=== PATIENT | female | born 2000 | race Caucasian/White ===

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

== ENCOUNTER 2022-06-10 10:42 | Emergency (ER) | payer OTHER, SELFPAY ==
[2022-06-10 10:43] VITALS: BP 134/83; PULSE 92; RESP 22; TEMP 36.9; O2SAT 100; BMI 17.2
--- NOTE | 2022-06-10 11:18 | PC.NURSE ---
speaking with Dr. Angeles at .
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
--- NOTE | 2022-06-10 11:55 | PC.NURSE ---
Pt rt hand dressed with bacitracin ointment and kerlex per MD request. Pt placed in sling to elevate extremity with ice pack on at this time.
[2022-06-10 12:08] VITALS: BP 119/73; PULSE 73; RESP 18; TEMP 36.9; O2SAT 98
== END 2022-06-10 12:08 | disposition home or self-care (01) ==
PROVIDERS: Emergency Provider Emergency Medicine; PCP Emergency Medicine
DX: T23.051A Burn of unspecified degree of right palm, initial encounter (principal); T31.0 Burns involving less than 10% of body surface; Y93.89 Activity, other specified
CPT/HCPCS: 96374; 96375; 96376; 99284; J2405

== ENCOUNTER 2023-04-04 06:44 | Emergency (ER) | payer OTHER, SELFPAY ==
[2023-04-04 06:46] VITALS: BP 117/78; PULSE 64; RESP 16; TEMP 36.8; O2SAT 98; BMI 18.3
[2023-04-04 06:52] VITALS: BP 117/78; PULSE 67; RESP 20; O2SAT 99
[2023-04-04 07:02] VITALS: BP 114/79; PULSE 59; RESP 20; O2SAT 100
--- NOTE | 2023-04-04 07:11 | HMH.EDDENT ---
Discharge Plan Disposition Patient Disposition: Home, Self-Care Prescriptions Prescriptions: New ketorolac 10 mg tablet 10 mg PO Q8H PRN (Reason: pain) 2 Days Qty: 10 0RF No Action oxycodone-acetaminophen 1 EACH tablet 1 each PO Q4-6H PRN (Reason: Crawford) 1 Days Qty: 12 0RF oxycodone-acetaminophen 1 EACH tablet 1 tab PO Q4-6H PRN (Reason: Crawford) Qty: 12 0RF Referrals Follow up/Referrals: Santos Huggins MD [Primary Care Provider] - See instructions Clinical Impressions Clinical Impression: Pain, dental Stand Alone Forms Stand Alone Forms: Work/School Release Instructions Patient Instructions: DI for Dental Pain Discharge ED Provider: Joseluis (ED)Santos Dental HPI General Chief complaint: Dental/Oral Stated complaint: Cracked tooth in pain Time Seen by Provider: 04/04/23 07:11 Mode of Arrival: Ambulatory Source of Information: Patient, Significant Other and Medical Record Limitations: No Limitations Description of Symptoms (Recalled from ER Triage Doc. by RN): Pt arrives to ED with c.o dental pain. Pt stated she has a cracked tooth that she is currently being treated for by her dentist. Pt stated she was seen March 28 and placed on an anbx, but states her pain is getting worse. Pt unsure of name of anbx. History of Present Illness HPI Narrative: pt with progressive dental pain and no fever - has seen dentist Complaint: tooth pain Onset (ago): day(s) Duration: intermittent Severity: moderate Relieving factors: NSAIDs Context: history of dental caries Treatment prior to arrival: oral analgesic and recent dentist visit Related Data Previous Rx's Medication Instructions Recorded oxycodone-acetaminophen 5 mg-325 1 each PO Q4-6H PRN Crawford 1 day 06/10/ mg tablet #12 tabs oxycodone-acetaminophen 5 mg-325 1 tab PO Q4-6H PRN Crawford #12 tabs 06/10/ mg tablet ketorolac 10 mg tablet 10 mg PO Q8H PRN pain 2 days #10 04/04/23 tabs Allergies Allergy/AdvReac Type Severity Reaction Status Date / Time No Known Allergies Allergy Verified 10/06/21 11:52 [facility] Disclaimer: The information contained in this section may have been updated after the patient was seen, as this information can be updated by other users. Social History Smoking Status: Current every day smoker alcohol intake: never substance use type: denies use current occupational status: employed Travel in the last 8 weeks: None ROS Obtained: Yes All systems reviewed & no additional complaints except as documented Physical Exam General General appearance: alert Head Head exam: normocephalic Eye Eye exam: Present PERRL and EOMI ENT ENT exam: Present mucous membranes moist Expanded ENT Exam Teeth exam: Present fractured tooth # Neck Neck exam: Present trachea midline Respiratory Respiratory exam: Absent respiratory distress Cardiovascular Cardiovascular exam: Present regular rate Abdominal Exam Abdominal exam: Present soft Extremities Exam Extremities exam: Present full ROM Neurological Exam Neurological exam: Present alert and CN II-XII intact Psychiatric Psychiatric exam: Present normal affect Skin Skin exam: Absent rash Medical Decision Making Medical Records Medical records reviewed: Yes I reviewed the patient's medical records. Shakeel Inquiry Pt receiving controlled substance: No Vital Signs: 04/04/23 06:46 Temperature 98.2 F Temperature Source Oral Pulse Rate [Right] 64 Respiratory Rate 16 Blood Pressure [Right Arm] 117/78 Blood Pressure Mean [Right Arm] 91 02 Sat by Pulse Oximetry 98 Oxygen Delivery Method Room Air Lab Data Lab results reviewed: Yes I reviewed the patient's lab results. Medical Decision Narrative: pt with dental pain and will see pcp for follow up Critical Care Time Critical Care Time Critical Care Time: No Attestation: On 04/04/23, the high probability of a clinically significant, sudden or life threatening deterioration of the
--- NOTE | 2023-04-04 07:52 | PC.NURSE ---
pt being D/C'D PT AMBULATED OUT
[2023-04-04 08:02] VITALS: BP 145/84; PULSE 71; RESP 18; TEMP 36.8; O2SAT 100
== END 2023-04-04 08:02 | disposition home or self-care (01) ==
PROVIDERS: Emergency Provider Emergency Medicine; PCP Emergency Medicine
DX: K08.89 Other specified disorders of teeth and supporting structures (principal); F17.200 Nicotine dependence, unspecified, uncomplicated
CPT/HCPCS: 96372; 99283; 99284

== ENCOUNTER 2023-05-22 21:42 | Emergency (ER) | payer OTHER, SELFPAY ==
[2023-05-22 21:43] VITALS: BP 146/85; PULSE 98; RESP 26; TEMP 36.9; O2SAT 99; BMI 17.2
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
[2023-05-22 22:16] LABS: Urine Pregnancy, HCG Qual. Negative (Negative)
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
[2023-05-23 00:56] VITALS: BP 137/84; PULSE 91; RESP 20; TEMP 36.9; O2SAT 99
== END 2023-05-23 00:58 | disposition home or self-care (01) ==
PROVIDERS: Emergency Provider Emergency Medicine
DX: S06.0X0A Concussion without loss of consciousness, initial encounter (principal); S09.93XA Unspecified injury of face, initial encounter; S01.81XA Laceration without foreign body of other part of head, initial encounter; Y00.XXXA Assault by blunt object, initial encounter
CPT/HCPCS: 12011; 70450; 70486; 72125; 81025; 90714; 96372; 99284

== ENCOUNTER 2023-06-01 12:54 | Emergency (ER) | payer OTHER, SELFPAY ==
[2023-06-01 13:00] VITALS: BP 116/81; PULSE 86; RESP 18; TEMP 36.6; O2SAT 99; BMI 18.0
[2023-06-01 13:10] VITALS: BP 116/81; PULSE 86; RESP 18; TEMP 36.6; O2SAT 99
== END 2023-06-01 13:13 | disposition home or self-care (01) ==
LOC: UTC 12:56
PROVIDERS: Emergency Provider Nurse Practitioner Family; PCP Emergency Medicine
DX: Z48.02 Encounter for removal of sutures; S01.81XA Laceration without foreign body of other part of head, initial encounter

== ENCOUNTER 2025-02-04 22:37 | Emergency (ER) | payer SELFPAY ==
[2025-02-04 22:54] VITALS: BP 137/80; PULSE 79; RESP 16; TEMP 36.6; O2SAT 98; BMI 19.7
--- NOTE | 2025-02-04 23:06 | HMH.EDGENADL ---
Discharge Plan Disposition Patient Disposition: Home, Self-Care Condition: Good Prescriptions Prescriptions: No Action No Known Home Medications Referrals Follow up/Referrals: Roel Cano DO [Primary Care Provider] - See instructions Activity Restrictions/Add. Instructions Additional Instructions/Restrictions: Please follow-up with your primary care provider. Please return to the emergency department if you develop any new or worsening symptoms or become concerned for your health. Clinical Impressions Clinical Impression: Restless leg syndrome, Mucocele of mouth Instructions Patient Instructions: DI for Restless Legs Syndrome Print Language Print Language: Greenlandic Discharge ED Provider: Kade Benz General Adult HPI General Chief complaint: Anxiety Stated complaint: shaky, weak, bump on gums Time Seen by Provider: 02/04/25 23:00 Mode of Arrival: Ambulatory Source of Information: Patient Description of Symptoms (Recalled from ER Triage Doc. by RN): Patient reports that she is shaking at night. This has happened for the last three nights, at bedtime. She also has a bump on her gums that she is anxious about. She states she has an appointment at the dentist on the . History of Present Illness HPI narrative: 24-year-old female with reported history of anxiety presents for multiple complaints. Her primary complaint is that she has been having shaking in her legs when she lays down to go to sleep and it does not stop until she falls asleep. She describes a uncontrollable urge to shake. Nothing like this before. No recent surgery or illness. No changes in medications diet activity etc. She also has a small bump on her left maxillary gums above the incisors. Reports that it occasionally feels with clear fluid but is not painful. Just wants to get it checked out. Related Data Home Medications ?Medication ?Instructions ?Recorded ?Confirmed No Known Home Medications 05/27/23 05/27/23 Allergies Allergy/AdvReac Type Severity Reaction Status Date / Time No Known Allergies Allergy Verified 05/27/23 13:47 [facility] Disclaimer: The information contained in this section may have been updated after the patient was seen, as this information can be updated by other users. Social History Smoking Status: Current every day smoker alcohol intake: never substance use type: denies use current occupational status: employed Travel in the last 8 weeks: None Have you lived/traveled outside [place] in past 30 days?: No Contact w/someone who lives/traveled outside [place] past 30 days?: No Exposure to someone with infectious disease in past 14 days?: No Do you have a fever (greater than 100.4 F or 38 C)?: No Have you tested positive for COVID-19: No Exposed to someone with COVID-19 in past 14 days?: No Do you have a sore throat?: No Do you have a cough?: No Do you have any weakness?: Yes Do you have any diarrhea?: No Are you experiencing any unusual bleeding?: No Do you have any muscle aches/pain?: No Do you have any abdominal pain?: No Are you experiencing loss of taste or smell?: No Other Medical History Have you received the Flu Vaccine for this season: Yes Have you received the Pneumonia Vaccine: No ROS Obtained: Yes All systems reviewed & no additional complaints except as documented Physical Exam General General appearance: alert and in no apparent distress Head Head exam: atraumatic and normocephalic Eye Eye exam: Present normal appearance, PERRL and EOMI ENT ENT exam: Present normal oropharynx, normal external ear exam and other (Small benign-appearing mucocele without erythema) Neck Neck exam: Present normal inspection and full ROM Chest Chest inspection: Present normal inspection and symmetric chest wall rise; Absent tenderness Respiratory Respiratory exam: Present normal lung sounds bilaterally; Absent respiratory distress Cardiovascular Cardiovascular exam: Present regular rate and normal rhythm Abdominal Exam Abdominal exam: Present soft; Absent distention, tenderness or guarding Extremities Exam Extremities exam: Present normal inspection; Absent edema or joint swelling Back Exam Back exam: Present normal inspection; Absent tenderness Neurological Exam Neurological exam: Present alert and oriented X3; Absent motor sensory deficit Psychiatric Psychiatric exam: Present normal affect and normal mood Skin Skin exam: Present warm, dry and normal color Lymphatic Lymphatic Findings: no adenopathy Medical Decision Making Medical Records Medical records reviewed: Yes I reviewed the patient's medical records. Screening: Per USPSTF and CDC recommendations, given the prevalence of disease in our region, it is our hospital?s policy to screen for HIV and viral Hepatitis for all patients aged 18 and over and those with ongoing risk factors. Shakeel Inquiry Pt receiving controlled substance: No Shakeel was queried for this patient: No Vital Signs: 02/04/25 22:54 02/04/25 23:23 Temperature 97.9 F 97.9 F Temperature Source Oral Oral Pulse Rate 74 Pulse Rate [Right Radial] 79 Respiratory Rate 16 16 Blood Pressure 118/74 Blood Pressure [Right Arm] 137/80 Blood Pressure Mean [Right Arm] 99 Blood Pressure Source Automatic Cuff Blood Pressure Source [Right Arm] Automatic Cuff Blood Pressure Position Supine Blood Pressure Position [Right Arm] Supine 02 Sat by Pulse Oximetry 98 Oxygen Delivery Method Room Air Room Air Lab Data Lab results reviewed: Yes I reviewed the patient's lab results. Medical Decision Narrative: 44-year-old female without significant past medical history presents for shaking in her legs at night for the last few days and chronic bump in her mouth history was obtained via interactive discussion with patient. On arrival, patient is [afebrile, hemodynamically stable, satting appropriately, alert, oriented x4, GCS 15], moving all extremities spontaneously. Full physical exam performed and significant for benign-appearing oral mucocele, no other significant physical exam normalities Differential includes but is not limited to restless leg syndrome, anxiety, mucocele, abscess. Presentation seems most consistent with restless leg syndrome and intraoral mucocele. No other significant concerns on history or exam at this time. Patient discharged in stable condition return precautions. Procedures Risk/Benefits of Procedure(s) Were Explained: Yes Critical Care Critical Care Time Critical Care Time: No
[2025-02-04 23:23] VITALS: BP 118/74; PULSE 74; RESP 16; TEMP 36.6; O2SAT 98
== END 2025-02-04 23:24 | disposition home or self-care (01) ==
PROVIDERS: Emergency Provider Emergency Medicine; PCP Internal Medicine
DX: G25.81 Restless legs syndrome (principal); K13.79 Other lesions of oral mucosa; Z87.891 Personal history of nicotine dependence
CPT/HCPCS: 99281

== ENCOUNTER 2025-03-09 15:49 | Outpatient (CLI) | payer OTHER, SELFPAY ==
--- NOTE | 2025-03-09 16:08 | XR_ITS ---
FINAL REPORT CLINICAL HISTORY: decreased breath sounds, right FINDINGS: 2 views of the chest were obtained . The heart is normal in size. The mediastinum is within normal limits. There are right middle and lower lobe opacities and moderate right pleural effusion, favor pneumonia. There is no pneumothorax. Osseous structures are unremarkable. IMPRESSION: Right middle lobe and lower lobe opacities with a moderate right pleural effusion, favor pneumonia. Recommend follow-up to resolution. Reviewed, Interpreted and Dictated by Luz Hammonds MD Transcribed by Susanna Puente Authenticated and [facility]
[2025-03-09 16:14] LABS: Basophils # 0.1 K/mm3 (0-0.2); Basophils % 0.7 % (0.1-2.0); Eosinophils # 0.1 K/mm3 (0.0-0.4); Eosinophils % 1.1 % (0.1-12.0); Hemoglobin 9.3 g/dL (12.2-16.2); Lymphocytes # 2.2 K/mm3 (0.7-4.5); Lymphocytes % 18.1 % (10-50); Mean Corpuscular HGB Conc 33.2 g/dL (31.8-35.4); Mean Corpuscular Hemoglobin 30.5 pg (27.0-31.2); Mean Corpuscular Volume 91.8 fl (81-99); Mean Platelet Volume 9.1 fl (7.4-10.4); Neutrophils # 8.7 K/mm3 (1.8-7.8); Neutrophils % 71.4 % (37.0-80.0); Nucleated Red Blood Cells # 0 10^3/uL; Nucleated Red Blood Cells % 0 %; Platelet Count 710 K/mm3 (142-424); Red Blood Count 3.05 M/mm3 (4.20-5.40); Red Cell Distribution Width 11.9 % (11.5-17.5); Red Cell Distribution Width-SD 40.3 fL; White Blood Count 12.2 K/mm3 (4.8-10.8)
[2025-03-09 16:53] LABS: Alanine Aminotransferase 40 U/L (12-78); Albumin Level 3.2 g/dl (3.5-5.0); Albumin/Globulin Ratio 0.9 (1.1-1.8); Alkaline Phosphatase 102 U/L (38-126); Anion Gap 12.3 mEq/L (5-15); Aspartate Amino Transferase 28 U/L (14-36); Bilirubin,Total 0.5 mg/dl (0.2-1.3); Blood Urea Nitrogen 8 mg/dl (7-17); Calcium 8.6 mg/dl (8.4-10.2); Carbon Dioxide 26 mmol/L (22.0-30.0); Chloride 100 mmol/L (98-107); Estimated Glomerular Filt Rate 198 ml/min (>60); GFR (African American) 239 ML/MIN (>60); Globulin 3.7 g/dL (1.3-3.2); Glucose 108 mg/dl (74-100); Potassium 4.3 mmoL/L (3.5-5.1); Sodium 134 mmol/L (136-145); Total Protein,Serum 6.9 g/dl (6.3-8.2)
[2025-03-09 17:23] LABS: Thyroid Stimulating Hormone 1.11 uIU/mL (0.465-4.68)
== END 2025-03-09 23:59 | disposition home or self-care (01) ==
LOC: LAB 15:50
PROVIDERS: PCP Nurse Practitioner Family; Visit Provider Nurse Practitioner Family
DX: J98.11 Atelectasis (principal); K13.79 Other lesions of oral mucosa; Z87.891 Personal history of nicotine dependence
CPT/HCPCS: 36415; 71046; 80053; 84443; 85025

== ENCOUNTER 2025-03-23 15:08 | Outpatient (CLI) | payer OTHER, SELFPAY ==
[2025-03-23 14:49] LABS: Basophils # 0.1 K/mm3 (0-0.2); Basophils % 1.8 % (0.1-2.0); Eosinophils # 0.4 Kmm3 (0.0-0.4); Eosinophils % 5.2 % (0.1-12.0); Hematocrit 40.8 % (37.0-47.0); Hemoglobin 12.8 g/dL (12.2-16.2); Lymphocytes # 2.2 K/mm3 (0.7-4.5); Lymphocytes % 30.6 % (10-50); Mean Corpuscular HGB Conc 31.4 g/dL (31.8-35.4); Mean Corpuscular Hemoglobin 29.8 pg (27.0-31.2); Mean Corpuscular Volume 94.9 fl (81-99); Mean Platelet Volume 10.1 fl (7.4-10.4); Monocytes # 0.5 K/mm3 (0.1-1.0); Monocytes % 7.1 % (1.7-9.3); Neutrophils # 3.9 K/mm3 (1.8-7.8); Nucleated Red Blood Cells # 0 10^3/uL; Nucleated Red Blood Cells % 0 %; Platelet Count 506 K/mm3 (142-424); Red Cell Distribution Width 14.6 % (11.5-17.5); Red Cell Distribution Width-SD 50.5 fL; White Blood Count 7.2 K/mm3 (4.8-10.8)
[2025-03-23 15:16] LABS: Albumin Level 4.1 g/dl (3.5-5.0); Chloride 104 mmol/L (98-107); Sodium 140 mmol/L (136-145)
[2025-03-23 15:17] LABS: Potassium 5.1 mmoL/L (3.5-5.1)
[2025-03-23 15:19] LABS: Anion Gap 15.1 mEq/L (5-15); Blood Urea Nitrogen 9 mg/dl (7-17); Carbon Dioxide 26 mmol/L (22.0-30.0); Estimated Glomerular Filt Rate 153 ml/min (>60); GFR (African American) 185 ML/MIN (>60)
[2025-03-23 15:20] LABS: Alanine Aminotransferase 44 U/L (12-78); Albumin/Globulin Ratio 1.2 (1.1-1.8); Alkaline Phosphatase 93 U/L (38-126); Aspartate Amino Transferase 32 U/L (14-36); Bilirubin,Total 0.4 mg/dl (0.2-1.3); Calcium 9.9 mg/dl (8.4-10.2); Globulin 3.4 g/dL (1.3-3.2); Glucose 81 mg/dl (74-100); Total Protein,Serum 7.5 g/dl (6.3-8.2)
[2025-03-23 15:58] LABS: Ferritin 115 ng/ml (6.24-137)
[2025-03-23 16:05] LABS: HIV Combo NEGATIVE (Negative)
[2025-03-23 16:11] LABS: Hepatitis C Ab Qual. W/ RFX NEGATIVE (Negative)
[2025-03-23 17:11] LABS: Thyroid Stimulating Hormone 1.68 uIU/mL (0.465-4.68)
== END 2025-03-23 23:59 | disposition home or self-care (01) ==
LOC: LAB.DROPOF 15:08
PROVIDERS: PCP Nurse Practitioner Family; Visit Provider Nurse Practitioner Family
DX: D64.9 Anemia, unspecified (principal); R00.0 Tachycardia, unspecified; Z11.59 Encounter for screening for other viral diseases
CPT/HCPCS: 80053; 82728; 84443; 85025; 86803; 87389

== ENCOUNTER 2025-04-27 15:35 | Outpatient (CLI) | payer OTHER, SELFPAY ==
[2025-04-27 16:57] LABS: Anti-Centromere B Antibodies ND; Anti-DNA (DS) Ab Qn ND; Anti-Jo-1 ND; Antichromatin Antibodies ND; Antiscleroderma-70 Antibodies ND; RNP Antibodies ND; Sjogren's Anti-SS-A ND; Sjogren's Anti-SS-B ND
[2025-04-27 17:07] LABS: Basophils # 0.1 K/mm3 (0-0.2); Basophils % 1.3 % (0.1-2.0); Eosinophils # 0.1 Kmm3 (0.0-0.4); Eosinophils % 1.4 % (0.1-12.0); Hematocrit 41.2 % (37.0-47.0); Hemoglobin 13.3 g/dL (12.2-16.2); Immature Granulocytes # 0.01 10^3uL; Immature Granulocytes % 0.1 %; Lymphocytes # 2.3 K/mm3 (0.7-4.5); Lymphocytes % 28.8 % (10-50); Mean Corpuscular HGB Conc 32.3 g/dL (31.8-35.4); Mean Corpuscular Hemoglobin 29.1 pg (27.0-31.2); Mean Corpuscular Volume 90.2 fl (81-99); Mean Platelet Volume 10.4 fl (7.4-10.4); Monocytes # 0.5 K/mm3 (0.1-1.0); Monocytes % 6.5 % (1.7-9.3); Neutrophils # 4.8 K/mm3 (1.8-7.8); Neutrophils % 61.9 % (37.0-80.0); Nucleated Red Blood Cells # 0 10^3/uL; Nucleated Red Blood Cells % 0 %; Platelet Count 307 K/mm3 (142-424); Red Blood Count 4.57 M/mm3 (4.20-5.40); Red Cell Distribution Width 13.6 % (11.5-17.5); Red Cell Distribution Width-SD 44.7 fL; White Blood Count 7.8 K/mm3 (4.8-10.8)
[2025-04-27 17:46] LABS: Albumin Level 4.6 g/dl (3.5-5.0); Chloride 107 mmol/L (98-107)
[2025-04-27 17:47] LABS: Potassium 4.5 mmoL/L (3.5-5.1); Sodium 140 mmol/L (136-145)
[2025-04-27 17:49] LABS: Alanine Aminotransferase 19 U/L (12-78); Anion Gap 12.5 mEq/L (5-15); Aspartate Amino Transferase 26 U/L (14-36); Blood Urea Nitrogen 6 mg/dl (7-17); Carbon Dioxide 25 mmol/L (22.0-30.0); Estimated Glomerular Filt Rate 124 ml/min (>60); GFR (African American) 150 ML/MIN (>60)
[2025-04-27 17:50] LABS: Albumin/Globulin Ratio 1.6 (1.1-1.8); Alkaline Phosphatase 60 U/L (38-126); Bilirubin,Total 0.8 mg/dl (0.2-1.3); Calcium 9.6 mg/dl (8.4-10.2); Globulin 2.9 g/dL (1.3-3.2); Glucose 90 mg/dl (74-100); Total Protein,Serum 7.5 g/dl (6.3-8.2)
[2025-04-27 18:21] LABS: Thyroid Stimulating Hormone 1.08 uIU/mL (0.465-4.68)
[2025-04-27 18:25] LABS: Ferritin 25.7 ng/ml (6.24-137)
[2025-04-29 11:12] LABS: Antinuclear Antibodies (ANA) Negative (Negative)
== END 2025-04-27 23:59 | disposition home or self-care (01) ==
LOC: LAB.DROPOF 04-28 12:37
PROVIDERS: PCP Nurse Practitioner Family; Visit Provider Nurse Practitioner Family
DX: E87.6 Hypokalemia (principal); H57.9 Unspecified disorder of eye and adnexa; D64.9 Anemia, unspecified; J93.83 Other pneumothorax; R00.0 Tachycardia, unspecified
CPT/HCPCS: 80053; 82728; 84443; 85025; 86038

== ENCOUNTER 2025-05-05 15:34 | Outpatient (CLI) | payer OTHER, SELFPAY ==
--- OUTSIDE RECORDS SUMMARY | 2025-03-10 11:46 | XMS_ITS | Encounter Summary ---
Author Organization Healthcare Address [address] [place] [address] Care Team Providers Care Advertising Intern Name Role Phone Pcp, No Primary Care Provider Unavailabl e Reason for Visit * Reason Comments Chest Pain * Auth/Cert (Routine) Specialty Diagnoses / Procedures Referred By Gisele t Referred To Contact Diagnoses Empyema lung (CMS/HCC) Pleural effusion Kaylan Cao MD [address] [address] Phone: tel: fax: PAV A Inpatient [address] [place] [address] Phone: tel: Referral ID Status Reason Start Date Expiration Date Visits Re quested Visits Authorized [id number] 1 1 Encounter Details Date Type Department Care Team ([facility] Contact Info) Description 03/10/2025 11:46 AM EDT - 03/15/2025 4:52 PM EDT Hospital Encounter [facility] [address] [place] [address] Radames Jane MD [address] [place] [address] Fatmata De Jesus MD [address] [place] [address] Kaylan Cao MD [address] [address] Pleural effusion (Primary Dx); Empyema [...] any time in the past 12 m [facility], were you homeless or living in a nursing home (including now)? No 03/11/2025 Utilities Answer Date [...] Clinic discharge # - For urgent questions/concerns: [facility] hotline: , option 4 - ask for the thoracic surgeon varying exceptionalities teacher. documented in this encounter Medications at Time [...] MD PCP name and Address: Pcp, Venessa [address] [place], [place] [id number] Referring provider name and address: No referring [...] Your Medications These medications were sent to [facility] - [place], [place] - 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 Outpatient Follow-Up No future appointments. Test Results [...] Note Sarah Crane 25 y.o. 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 [facility] [place] Department of Surgery Section of Thoracic Surgery Progress Note 03/14/25 Sarah Crane History of Present Illness Sarah Crane is a 25 y.o. female that presented to [facility] on 03/10/2025 after CXR demonstrated moderate R pleural effusion at appointment with PCP on 03/09. 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 [facility] [place] Department of Surgery Section of Thoracic Surgery Progress Note 03/13/25 Sarah Crane History of Present Illness Sarah Crane is a 25 y.o. female that presented to [facility] on 03/10/2025 after CXR demonstrated moderate R pleural effusion at appointment with PCP on 03/09. 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 female CSN: [id number] Room/Bed 642/642A Nutrition evaluation type: assessment Reason [...] Supplemental oxygen O2 Delivery Method: Nasal cannula [place] Coma Scale Score: 15 [place] Scale Score: [...] BMI (Calculated): 17.66 Weight Evaluation: Underweight (BMI<18.5) Bowler Body Weight (kg): 54.5 Percent Bowler Body Weight: 86 Wt Readings from Last [...] from the original note were not included. [facility] [place] Department of Surgery Section of Thoracic Surgery Progress Note 03/12/25 Sarah Crane History of Present Illness Sarah Crane is a 25 y.o. female that presented to [facility] on 03/10/2025 after CXR demonstrated moderate R pleural effusion at appointment with PCP on 03/09. 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 I have notified senior resident/attending varying exceptionalities teacher with any issues or concerns. Juvencio Tellez [...] PM EDT Operative Note Date: 03/11/25 Location: [place] [facility] Name: Sarah Crane, : 2000, Diagnoses: Pre-op Diagnosis Pleural effusion Post-op Diagnosis Pleural effusion Procedure(s): Bronchoscopy, right VATS decortication Attending Surgeon(s): * Kaylan Cao - Primary X Ray Developer(s): * Bre Matson MD - Resident - [...] several liters of warm saline. A 24 Turkmen chest tube was placed through a separate [...] Note Sarah Crane 25 y.o. female CSN: [id number] Admission: 03/10/2025 11:46 AM Primary Problem: Pleural effusion Hot Dimpling Machine Operator reviewed chart and spoke with the patient at bedside to complete this Initial Case Management Assessment. PCP: Eliza Moser APRN Emergency Contact: Extended Emergency Contact Information Primary Emergency Contact: RoyceLydia boone Mobile Relation: Mother Insurance: Primary Visit Coverage Payer Plan Sponsor Code Group Number Group Name [facility] [id number] Primary Visit Coverage Subscriber Subscriber ID Subscriber Name Subscriber N Subscriber Address [id number] SARAH CRANE [id number] [address] [place] [address] Patient information: Primary Caregiver: Self Support System: Immediate family Daily Living Activities: Functional Status: Independent Living Arrangements: Children Type of Residence: Private residence, Single Level [address] [address] Smoker in the Home?: N/A Current DME: [...] DME Provider: n/a Living Will/Advance Directive/Power of Motion Designer /Guardian: Unable to assess: Yes Have you [...] DME/HH/HD/O2. PCP is Eliza Moser. Patient has [employer] insurance and uses [facility]. Family will assist and transport at [...] from the original note were not included. [facility] Department of Surgery Section of Thoracic Surgery [...] effusion concerning for empyema. Dispo: Admit to [facility] Consent for R VATS washout/decortication tomorrow with Dr. Cao History of Present Illness: Chief Complaint: Persistent R chest pain with associated pleural effusion. Sarah Crane is a 25 y.o. female w/no significant past medical history presented to the [facility] on 03/10/2025 after CXR demonstrated moderate [...] smoking. Immunizations: Immunization History Administered Date(s) Administered [facility] COVID-19 Vaccine (Purple Cap) 12+ 12/02/2021 I [...] Chief Complaint Patient presents with Chest Pain [facility] Note Sarah Crane is a 25 y.o. female who presents to ED with chest/lung pain. Pt notes she has a spontaneous collapse of R lung 3 weeks ago. Pt states that she had a follow up yesterday in [place]. Today she was told there was fluid and poss PNA and was sent to ED. Pt had a chest tube for 3-4 days for previous lung collapse. Patient denies fever, chills, nausea, vomiting, and diarrhea. 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 I personally performed my own history, ROS, and physical. I agree with the above [facility] documentation with the following additions/exceptions: The [...] COMPARISON: Same date at 0418 hours FINDINGS: Bgywv-kq-wubrzple left-sided pneumothorax without change. Small right-sided pleural effusion, stable. Mild right infrahilar opacities are similar to the prior. No left-sided pleural effusion or pneumothorax. No left-sided airspace disease. Procedure Note Ashleigh Samayoa MD - 03/15/2025 CLINICAL INDICATION: S/p chest tube removal TECHNIQUE: XR CHEST 1 VIEW COMPARISON: Same date at 0418 hours FINDINGS: Vvgyq-[id number] left-sided pneumothorax without change. Smallright-sided pleural effusion, [...] - 99 mg/dL 03/14/2025 4:24 AM EDT [facility] BUN, Plasma 8 7 - 21 mg/dL 03/14/2025 4:24 AM EDT [facility] Creatinine, Plasma 0.49(L) 0.60 - 1.10 mg/dL 03/14/2025 4:24 AM EDT [facility] BUN/Creatinine Ratio 16 03/14/2025 4:24 AM EDT [facility] Sodium, Plasma 137 136 - 145 mmol/L 03/14/2025 4:24 AM EDT [facility] Potassium, Plasma 3.6 3.6 - 4.9 mmol/L 03/14/2025 4:24 AM EDT [facility] Chloride, Plasma 102 97 - 107 mmol/L 03/14/2025 4:24 AM EDT [facility] CO2, Plasma 28 22 - 29 mmol/L 03/14/2025 4:24 AM EDT [facility] Anion Gap 7 6 - 16 mmol/L 03/14/2025 4:24 AM EDT [facility] Total Calcium, Plasma 8.9 8.9 - 10.2 mg/dL 03/14/2025 4:24 AM EDT [facility] Phosphorus, Plasma 4.7(H) 2.5 - 4.5 mg/dL 03/14/2025 4:24 AM EDT [facility] Albumin, Plasma 3.1(L) 3.5 - 5.2 g/dL 03/14/2025 4:24 AM EDT [facility] eGFRcr 136.0 mL/min/1.7 3m*2 03/14/2025 4:24 AM EDT [facility] Comment:Reported eGFRcr in m L/min/1.73m2 is based the CKD-EPI 2020 equation that does not use a race coefficient. Blood Venous blood specimen / Unknown Venipuncture / Unknown 03/14/2025 3:26 AM EDT 03/14/2025 3:48 AM EDT us Kaylan Cao MD LAB BLOOD ORDERABLES Final R esult Performing Organization Address City/[facility]/ZIP Co de Phone Number [facility] [address] [place] [address] * Magnesium (03/14/2025 3:26 AM EDT) Magnesium, Plasma 1.9 1.9 - 2.4 mg/dL 03/14/2025 4:24 AM EDT [facility] Blood Venous blood specimen / Unknown Venipuncture / Unknown 03/14/2025 3:26 AM EDT 03/14/2025 3:48 AM EDT Kaylan Cao MD LAB BLOOD ORDERABLES Final R esult [facility] [address] [place] [address] * (ABNORMAL) CBC W/O Differential (03/14/2025 3:26 AM EDT) WBC Count 10.78(H) 3.70 - 10.30 10*3/uL LAB HEMATOLOGY METHOD 03/14/2025 3:55 AM EDT [facility] RBC Count 3.49(L) 3.90 - 5.20 10*6/uL LAB HEMATOLOGY METHOD 03/14/2025 3:55 AM EDT [facility] HGB 10.2(L) 11.2 - 15.7 g/dL LAB HEMATOLOGY METHOD 03/14/2025 3:55 AM EDT [facility] HCT 32.9(L) 34.0 - 45.0 % LAB HEMATOLOGY METHOD 03/14/2025 3:55 AM EDT [facility] Platelet Count 668(H) 155 - 369 10*3/uL LAB HEMATOLOGY METHOD 03/14/2025 3:55 AM EDT [facility] MCV 94 79 - 98 fL LAB HEMATOLOGY METHOD 03/14/2025 3:55 AM EDT [facility] MCH 29.2 26.0 - 32.0 pg LAB HEMATOLOGY METHOD 03/14/2025 3:55 AM EDT [facility] MCHC 31.0 30.7 - 35.5 g/dL LAB HEMATOLOGY METHOD 03/14/2025 3:55 AM EDT [facility] RDW 12.5 11.5 - 14.5 % LAB HEMATOLOGY METHOD 03/14/2025 3:55 AM EDT [facility] MPV 8.8 8.8 - 12.5 fL LAB HEMATOLOGY METHOD 03/14/2025 3:55 AM EDT [facility] nRBC 0.0 <=0.0 per 100 WBCs LAB HEMATOLOGY METHOD 03/14/2025 3:55 AM EDT [facility] Blood Venous blood specimen / Unknown Venipuncture / Unknown 03/14/2025 3:26 AM EDT 03/14/2025 3:48 AM EDT us Kaylan Cao MD LAB BLOOD ORDERABLES Final R esult [facility] [address] [place] [address] * XR Chest 1 View (03/13/2025 4:23 [...] - 99 mg/dL 03/13/2025 4:23 AM EDT [facility] BUN, Plasma 7 7 - 21 mg/dL 03/13/2025 4:23 AM EDT [facility] Creatinine, Plasma 0.53(L) 0.60 - 1.10 mg/dL 03/13/2025 4:23 AM EDT [facility] BUN/Creatinine Ratio 13 03/13/2025 4:23 AM EDT [facility] Sodium, Plasma 139 136 - 145 mmol/L 03/13/2025 4:23 AM EDT [facility] Potassium, Plasma 3.9 3.6 - 4.9 mmol/L 03/13/2025 4:23 AM EDT [facility] Chloride, Plasma 102 97 - 107 mmol/L 03/13/2025 4:23 AM EDT [facility] CO2, Plasma 29 22 - 29 mmol/L 03/13/2025 4:23 AM EDT [facility] Anion Gap 8 6 - 16 mmol/L 03/13/2025 4:23 AM EDT [facility] Total Calcium, Plasma 8.9 8.9 - 10.2 mg/dL 03/13/2025 4:23 AM EDT [facility] Phosphorus, Plasma 4.1 2.5 - 4.5 mg/dL 03/13/2025 4:23 AM EDT [facility] Albumin, Plasma 2.9(L) 3.5 - 5.2 g/dL 03/13/2025 4:23 AM EDT [facility] eGFRcr 133.5 mL/min/1.7 3m*2 03/13/2025 4:23 AM EDT [facility] Comment:Reported eGFRcr in m L/min/1.73m2 is based the CKD-EPI 2020 equation that does not use a race coefficient. Blood Venous blood specimen / Unknown Venipuncture / Unknown 03/13/2025 3:33 AM EDT 03/13/2025 3:50 AM EDT us Kaylan Cao MD LAB BLOOD ORDERABLES Final R esult [facility] [address] [place] [address] * Magnesium (03/13/2025 3:33 AM EDT) Magnesium, Plasma 2.1 1.9 - 2.4 mg/dL 03/13/2025 4:23 AM EDT [facility] Blood Venous blood specimen / Unknown Venipuncture / Unknown 03/13/2025 3:33 AM EDT 03/13/2025 3:50 AM EDT us Kaylan Cao MD LAB BLOOD ORDERABLES Final R esult [facility] [address] [place] [address] * (ABNORMAL) CBC W/O Differential (03/13/2025 3:33 AM EDT) WBC Count 14.97(H) 3.70 - 10.30 10*3/uL LAB HEMATOLOGY METHOD 03/13/2025 4:07 AM EDT [facility] RBC Count 3.02(L) 3.90 - 5.20 10*6/uL LAB HEMATOLOGY METHOD 03/13/2025 4:07 AM EDT [facility] HGB 9.1(L) 11.2 - 15.7 g/dL LAB HEMATOLOGY METHOD 03/13/2025 4:07 AM EDT [facility] HCT 28.1(L) 34.0 - 45.0 % LAB HEMATOLOGY METHOD 03/13/2025 4:07 AM EDT [facility] Platelet Count 638(H) 155 - 369 10*3/uL LAB HEMATOLOGY METHOD 03/13/2025 4:07 AM EDT [facility] MCV 93 79 - 98 fL LAB HEMATOLOGY METHOD 03/13/2025 4:07 AM EDT [facility] MCH 30.1 26.0 - 32.0 pg LAB HEMATOLOGY METHOD 03/13/2025 4:07 AM EDT [facility] MCHC 32.4 30.7 - 35.5 g/dL LAB HEMATOLOGY METHOD 03/13/2025 4:07 AM EDT [facility] RDW 12.0 11.5 - 14.5 % LAB HEMATOLOGY METHOD 03/13/2025 4:07 AM EDT [facility] MPV 9.1 8.8 - 12.5 fL LAB HEMATOLOGY METHOD 03/13/2025 4:07 AM EDT [facility] nRBC 0.0 <=0.0 per 100 WBCs LAB HEMATOLOGY METHOD 03/13/2025 4:07 AM EDT [facility] Blood Venous blood specimen / Unknown Venipuncture / Unknown 03/13/2025 3:33 AM EDT 03/13/2025 3:53 AM EDT us Kaylan Cao MD LAB BLOOD ORDERABLES Final R esult [facility] [address] [place] [address] * XR Chest 1 View (03/13/2025 1:33 [...] - 99 mg/dL 03/12/2025 4:36 AM EDT [facility] BUN, Plasma 8 7 - 21 mg/dL 03/12/2025 4:36 AM EDT [facility] Creatinine, Plasma 0.48(L) 0.60 - 1.10 mg/dL 03/12/2025 4:36 AM EDT [facility] BUN/Creatinine Ratio 17 03/12/2025 4:36 AM EDT [facility] Sodium, Plasma 139 136 - 145 mmol/L 03/12/2025 4:36 AM EDT [facility] Potassium, Plasma 4.6 3.6 - 4.9 mmol/L 03/12/2025 4:36 AM EDT [facility] Chloride, Plasma 101 97 - 107 mmol/L 03/12/2025 4:36 AM EDT [facility] CO2, Plasma 23 22 - 29 mmol/L 03/12/2025 4:36 AM EDT [facility] Anion Gap 15 6 - 16 mmol/L 03/12/2025 4:36 AM EDT [facility] Total Calcium, Plasma 9.7 8.9 - 10.2 mg/dL 03/12/2025 4:36 AM EDT [facility] Phosphorus, Plasma 4.8(H) 2.5 - 4.5 mg/dL 03/12/2025 4:36 AM EDT [facility] Albumin, Plasma 3.6 3.5 - 5.2 g/dL 03/12/2025 4:36 AM EDT [facility] eGFRcr 136.7 mL/min/1.7 3m*2 03/12/2025 4:36 AM EDT [facility] Comment:Reported eGFRcr in m L/min/1.73m2 is based the CKD-EPI 2020 equation that does not use a race coefficient. Blood Venous blood specimen / Unknown Venipuncture / Unknown 03/12/2025 3:23 AM EDT 03/12/2025 4:03 AM EDT us Kaylan Cao MD LAB BLOOD ORDERABLES Final R esult [facility] [address] [place] [address] * Magnesium (03/12/2025 3:23 AM EDT) Magnesium, Plasma 2.2 1.9 - 2.4 mg/dL 03/12/2025 4:36 AM EDT [facility] Blood Venous blood specimen / Unknown Venipuncture / Unknown 03/12/2025 3:23 AM EDT 03/12/2025 4:03 AM EDT us Kaylan Cao MD LAB BLOOD ORDERABLES Final R esult [facility] [address] [place] [address] * (ABNORMAL) CBC W/O Differential (03/12/2025 3:23 AM EDT) Pathologist [facility] WBC Count 20.78(H) 3.70 - 10.30 10*3/uL LAB HEMATOLOGY METHOD 03/12/2025 4:01 AM EDT [facility] RBC Count 3.99 3.90 - 5.20 10*6/uL LAB HEMATOLOGY METHOD 03/12/2025 4:01 AM EDT [facility] HGB 11.8 11.2 - 15.7 g/dL LAB HEMATOLOGY METHOD 03/12/2025 4:01 AM EDT [facility] HCT 36.7 34.0 - 45.0 % LAB HEMATOLOGY METHOD 03/12/2025 4:01 AM EDT [facility] Platelet Count 898(H) 155 - 369 10*3/uL LAB HEMATOLOGY METHOD 03/12/2025 4:01 AM EDT [facility] MCV 92 79 - 98 fL LAB HEMATOLOGY METHOD 03/12/2025 4:01 AM EDT [facility] MCH 29.6 26.0 - 32.0 pg LAB HEMATOLOGY METHOD 03/12/2025 4:01 AM EDT [facility] MCHC 32.2 30.7 - 35.5 g/dL LAB HEMATOLOGY METHOD 03/12/2025 4:01 AM EDT [facility] RDW 11.9 11.5 - 14.5 % LAB HEMATOLOGY METHOD 03/12/2025 4:01 AM EDT [facility] MPV 9.0 8.8 - 12.5 fL LAB HEMATOLOGY METHOD 03/12/2025 4:01 AM EDT [facility] nRBC 0.0 <=0.0 per 100 WBCs LAB HEMATOLOGY METHOD 03/12/2025 4:01 AM EDT [facility] Blood Venous blood specimen / Unknown Venipuncture / Unknown 03/12/2025 3:23 AM EDT 03/12/2025 3:55 AM EDT us Kaylan Cao MD LAB BLOOD ORDERABLES Final R esult [facility] [address] [place] [address] * XR Chest 1 View (03/12/2025 1:40 [...] Culture Light Growth 03/14/2025 7:03 AM EDT [facility] Culture Staphylococcus epidermidis(A) SELENE 03/14/2025 7:03 AM EDT [facility] Comment: This isolate has been identified using the FDA Approved Contixer CA System The organism value for this result has been updated. These results have been appended to the previously preliminary verified report. Gram Stain Result Few Polymorphonuclear leukocytes 03/14/2025 7:03 AM EDT [facility] Gram Stain Result No organisms seen 03/14/2025 7:03 AM EDT [facility] Body Fluid Structure of right [...] MICROBIOLOGY - GENERAL O RDERABLES Final Result [facility] [address] [place] [address] * Surgical Pathology Exam (03/11/2025 4:57 PM EDT) Case Report Surgical Pathology Case: [id number] Authorizing Provider: Kaylan Cao MD Collected: 03/11/2025 1657 Ordering Location: [facility] Received: 03/12/2025 0842 Pathologist: Gyoo Haque MD Specimen: Other (specify site), Right Pleural Biopsy 03/16/2025 11:09 AM EDT [facility] Final Diagnosis A. RIGHT PLEURAL, BIOPSY: - GRANULATION TISSUE, INFLAMMATION WITH PIGMENT LADEN MACROPHAGES AND REACTIVE CHANGES ( CLINICAL HISTORY OF EMPYEMA WITH PNEUMOTHORAX) 03/16/2025 11:09 AM EDT [facility] at 1108 EDT Clinical Information Pleural effusion [J90] 03/16/2025 11:09 AM EDT [facility] Gross Description A. RIGHT PLEURAL BIOPSY Received in formalin labeled right pleura biopsy , are 3 pink-red soft tissue fragments that range from 0.7-1.2 cm in greatest dimension. Entirely submitted in cassette A1. Cold Time: 15h 16m Cristel Prado 03/16/2025 11:09 AM EDT [facility] Note: A resident was involved in the service. I attest I examined the relevant preparations for the specimens and confirmed the diagnosis or interpretation. 03/16/2025 11:09 AM EDT [facility] Tissue Topography unknown / Unknown 03/11/2025 4:57 PM EDT 03/12/2025 8:13 AM EDT Comment:Pre-op diagnosis: Pleural effusion [J90] us Kaylan Cao MD LAB PATHOLOGY ORDERABLES Fin al Result [facility] [address] [place] [address] * POCT , URINE (03/11/2025 3:00 PM EDT) POCT Test, Urine Negative Males and Non- Females: Negative 03/11/2025 3:06 PM EDT [facility] Biodiesel Product Manager ID Kellee Hughesrema Hartman 03/11/2025 3:06 PM EDT [facility] Device ID [id number] 03/11/2025 3:06 PM EDT [facility] Urine Urine specimen obtained by clean catch procedure / Unknown 03/11/2025 3:00 PM EDT 03/11/2025 3:06 PM EDT Kaylan Cao MD LAB POINT OF CARE TE ST DOCKED DEVICE UNSOLICITED RESULTS Final Result [facility] [address] [place] [address] * XR Chest 1 View (03/11/2025 4:22 [...] - 99 mg/dL 03/11/2025 4:35 AM EDT [facility] BUN, Plasma 7 7 - 21 mg/dL 03/11/2025 4:35 AM EDT [facility] Creatinine, Plasma 0.50(L) 0.60 - 1.10 mg/dL 03/11/2025 4:35 AM EDT [facility] BUN/Creatinine Ratio 14 03/11/2025 4:35 AM EDT [facility] Sodium, Plasma 135(L) 136 - 145 mmol/L 03/11/2025 4:35 AM EDT [facility] Potassium, Plasma 4.0 3.6 - 4.9 mmol/L 03/11/2025 4:35 AM EDT [facility] Chloride, Plasma 103 97 - 107 mmol/L 03/11/2025 4:35 AM EDT [facility] CO2, Plasma 24 22 - 29 mmol/L 03/11/2025 4:35 AM EDT [facility] Anion Gap 8 6 - 16 mmol/L 03/11/2025 4:35 AM EDT [facility] Total Calcium, Plasma 8.9 8.9 - 10.2 mg/dL 03/11/2025 4:35 AM EDT [facility] Phosphorus, Plasma 4.1 2.5 - 4.5 mg/dL 03/11/2025 4:35 AM EDT [facility] Albumin, Plasma 3.1(L) 3.5 - 5.2 g/dL 03/11/2025 4:35 AM EDT [facility] eGFRcr 135.3 mL/min/1.7 3m*2 03/11/2025 4:35 AM EDT [facility] Comment:Reported eGFRcr in m L/min/1.73m2 is based the CKD-EPI 2020 equation that does not use a race coefficient. Blood Venous blood specimen / Unknown Venipuncture / Unknown 03/11/2025 3:51 AM EDT 03/11/2025 3:57 AM EDT us Kaylan Cao MD LAB BLOOD ORDERABLES Final R esult [facility] [address] [place] [address] * Magnesium (03/11/2025 3:51 AM EDT) Magnesium, Plasma 2.2 1.9 - 2.4 mg/dL 03/11/2025 4:35 AM EDT [facility] Blood Venous blood specimen / Unknown Venipuncture / Unknown 03/11/2025 3:51 AM EDT 03/11/2025 3:57 AM EDT us Kaylan Cao MD LAB BLOOD ORDERABLES Final R esult [facility] [address] [place] [address] * (ABNORMAL) CBC W/O Differential (03/11/2025 3:51 AM EDT) Pathologist [facility] WBC Count 9.63 3.70 - 10.30 10*3/uL LAB HEMATOLOGY METHOD 03/11/2025 4:18 AM EDT [facility] RBC Count 3.13(L) 3.90 - 5.20 10*6/uL LAB HEMATOLOGY METHOD 03/11/2025 4:18 AM EDT [facility] HGB 9.5(L) 11.2 - 15.7 g/dL LAB HEMATOLOGY METHOD 03/11/2025 4:18 AM EDT [facility] HCT 29.0(L) 34.0 - 45.0 % LAB HEMATOLOGY METHOD 03/11/2025 4:18 AM EDT [facility] Platelet Count 654(H) 155 - 369 10*3/uL LAB HEMATOLOGY METHOD 03/11/2025 4:18 AM EDT [facility] MCV 93 79 - 98 fL LAB HEMATOLOGY METHOD 03/11/2025 4:18 AM EDT [facility] MCH 30.4 26.0 - 32.0 pg LAB HEMATOLOGY METHOD 03/11/2025 4:18 AM EDT [facility] MCHC 32.8 30.7 - 35.5 g/dL LAB HEMATOLOGY METHOD 03/11/2025 4:18 AM EDT [facility] RDW 12.1 11.5 - 14.5 % LAB HEMATOLOGY METHOD 03/11/2025 4:18 AM EDT [facility] MPV 9.2 8.8 - 12.5 fL LAB HEMATOLOGY METHOD 03/11/2025 4:18 AM EDT [facility] nRBC 0.0 <=0.0 per 100 WBCs LAB HEMATOLOGY METHOD 03/11/2025 4:18 AM EDT [facility] Blood Venous blood specimen / Unknown Venipuncture / Unknown 03/11/2025 3:51 AM EDT 03/11/2025 3:57 AM EDT Kaylan Cao MD LAB BLOOD ORDERABLES Final R esult Performing Organization Address [facility] Co de Phone Number [facility] [address] [place] [address] * Type and screen (03/10/2025 4:28 PM [...] ORDERABL ES Final Result Performing Organization Address [facility] de Phone Number BLOOD BANK [address] [place] [address], [place] * CT Chest w IV Contrast [...] chest. Upper Abdomen: Unremarkable. Procedure Note Jeevan Horvath MD - 03/10/2025 CLINICAL INDICATION: history of [...] at day 5 03/15/2025 2:02 PM EDT [facility] Blood Structure of antecubital vein / Unknown Venipuncture / Unknown 03/10/2025 12:21 PM EDT 03/10/2025 12:35 PM EDT Narrative [facility] - 03/15/2025 2:02 PM EDT Low blood volume submitted, results may be compromised us Radames Jane MD LAB MICROBIOLOGY - GENE RAL ORDERABLES Final Result [facility] [address] [place] [address] * XR Chest 1 View (03/10/2025 12:15 [...] Reactive Non Reactive 03/10/2025 12:55 PM EDT [facility] Comment:Screening for HIV 1 & 2 antibodies, and P24 antigen is NONREACTIVE. No confirmatory testing is required. Blood Venous blood specimen / Unknown Venipuncture / Unknown 03/10/2025 11:45 AM EDT 03/10/2025 12:05 PM EDT us Bre Maher MD LAB BLOOD ORDERABLES Final Result [facility] [address] [place] [address] * Hepatitis C Antibody - ED (03/10/2025 11:45 AM EDT) Pathologist [facility] Hepatitis C Antibody Negative Negative 03/10/2025 12:57 PM EDT [facility] Blood Venous blood specimen / Unknown Venipuncture / Unknown 03/10/2025 11:45 AM EDT 03/10/2025 12:05 PM EDT Bre Maher MD LAB BLOOD ORDERABLES Final Result Performing Organization Address [facility] Co de Phone Number [facility] [address] [place] [address] * (ABNORMAL) PT-INR (03/10/2025 11:45 AM EDT) [facility] Prothrombin Time 15.0(H) 12.0 - 14.3 sec 03/10/2025 12:13 PM EDT [facility] INR 1.2(H) 0.9 - 1.1 03/10/2025 12:13 PM EDT [facility] Blood Venous blood specimen / Unknown Venipuncture / Unknown 03/10/2025 11:45 AM EDT 03/10/2025 11:55 AM EDT Narrative [facility] - 03/10/2025 12:13 PM EDT OPTIMAL INR RANGES FOR PATIENT ON ORAL ANTICOAGULANT THERAPY Prevention of venous thromboembolism INR 2.0 to 3.0 In patients with heart disease: Atrial fibrillation INR 2.0 to 3.0 Valvular heart disease INR 2.0 to 3.0 Tissue heart valves INR 2.0 to 3.0 Mechanical prosthetic valves INR 2.5 to 3.5 Prevention of recurrent AK INR 2.5 to 3.5 us Bre Maher MD LAB BLOOD ORDERABLES Final Result Performing Organization Address City/[facility]/ZIP Co de Phone Number [facility] [address] [place] [address] * (ABNORMAL) CBC w/diff (03/10/2025 11:45 AM EDT) [facility] WBC Count 13.18(H) 3.70 - 10.30 10*3/uL LAB HEMATOLOGY METHOD 03/10/2025 12:26 PM EDT [facility] RBC Count 3.43(L) 3.90 - 5.20 10*6/uL LAB HEMATOLOGY METHOD 03/10/2025 12:26 PM EDT [facility] HGB 10.3(L) 11.2 - 15.7 g/dL LAB HEMATOLOGY METHOD 03/10/2025 12:26 PM EDT [facility] HCT 31.6(L) 34.0 - 45.0 % LAB HEMATOLOGY METHOD 03/10/2025 12:26 PM EDT [facility] Platelet Count 845(H) 155 - 369 10*3/uL LAB HEMATOLOGY METHOD 03/10/2025 12:26 PM EDT [facility] MCV 92 79 - 98 fL LAB HEMATOLOGY METHOD 03/10/2025 12:26 PM EDT [facility] MCH 30.0 26.0 - 32.0 pg LAB HEMATOLOGY METHOD 03/10/2025 12:26 PM EDT [facility] MCHC 32.6 30.7 - 35.5 g/dL LAB HEMATOLOGY METHOD 03/10/2025 12:26 PM EDT [facility] RDW 11.9 11.5 - 14.5 % LAB HEMATOLOGY METHOD 03/10/2025 12:26 PM EDT [facility] MPV 9.1 8.8 - 12.5 fL LAB HEMATOLOGY METHOD 03/10/2025 12:26 PM EDT [facility] nRBC 0.0 <=0.0 per 100 WBCs LAB HEMATOLOGY METHOD 03/10/2025 12:26 PM EDT [facility] Differential Type Automated LAB HEMATOLOGY METHOD 03/10/2025 12:26 PM EDT [facility] Neutrophils % 76 % LAB HEMATOLOGY METHOD 03/10/2025 12:26 PM EDT [facility] Lymphocytes % 14 % LAB HEMATOLOGY METHOD 03/10/2025 12:26 PM EDT [facility] Monocytes % 7 % LAB HEMATOLOGY METHOD 03/10/2025 12:26 PM EDT [facility] Eosinophils % 1 % LAB HEMATOLOGY METHOD 03/10/2025 12:26 PM EDT [facility] Basophils % 1 % LAB HEMATOLOGY METHOD 03/10/2025 12:26 PM EDT [facility] Immature Granulocytes % 1 % LAB HEMATOLOGY METHOD 03/10/2025 12:26 PM EDT [facility] Neutrophils Absolute 10.12(H) 1.60 - 6.10 10*3/uL LAB HEMATOLOGY METHOD 03/10/2025 12:26 PM EDT [facility] Lymphocytes Absolute 1.87 1.20 - 3.90 10*3/uL LAB HEMATOLOGY METHOD 03/10/2025 12:26 PM EDT [facility] Monocytes Absolute 0.95(H) 0.30 - 0.90 10*3/uL LAB HEMATOLOGY METHOD 03/10/2025 12:26 PM EDT [facility] Eosinophils Absolute 0.07 0.00 - 0.50 10*3/uL LAB HEMATOLOGY METHOD 03/10/2025 12:26 PM EDT [facility] Basophils Absolute 0.09 0.00 - 0.10 10*3/uL LAB HEMATOLOGY METHOD 03/10/2025 12:26 PM EDT [facility] Immature Granulocytes Absolute 0.08(H) 0.00 - 0.06 10*3/uL LAB HEMATOLOGY METHOD 03/10/2025 12:26 PM EDT [facility] Blood Venous blood specimen / Unknown Venipuncture / Unknown 03/10/2025 11:45 AM EDT 03/10/2025 11:55 AM EDT Narrative [facility] - 03/10/2025 12:26 PM EDT Therapeutic decision making should be based on absolute values, rather than percentages. us Bre Maher MD LAB BLOOD ORDERABLES Final Result [facility] [address] [place] [address] * (ABNORMAL) CMP (03/10/2025 11:45 AM EDT) Glucose, Plasma 111(H) 74 - 99 mg/dL 03/10/2025 12:20 PM EDT [facility] BUN, Plasma 10 7 - 21 mg/dL 03/10/2025 12:20 PM EDT [facility] Creatinine, Plasma 0.47(L) 0.60 - 1.10 mg/dL 03/10/2025 12:20 PM EDT [facility] BUN/Creatinine Ratio 21 03/10/2025 12:20 PM EDT [facility] Sodium, Plasma 136 136 - 145 mmol/L 03/10/2025 12:20 PM EDT [facility] Potassium, Plasma 4.1 3.6 - 4.9 mmol/L 03/10/2025 12:20 PM EDT [facility] Chloride, Plasma 99 97 - 107 mmol/L 03/10/2025 12:20 PM EDT [facility] CO2, Plasma 26 22 - 29 mmol/L 03/10/2025 12:20 PM EDT [facility] Anion Gap 11 6 - 16 mmol/L 03/10/2025 12:20 PM EDT [facility] Total Calcium, Plasma 9.4 8.9 - 10.2 mg/dL 03/10/2025 12:20 PM EDT [facility] Total Protein 7.9 6.3 - 7.9 g/dL 03/10/2025 12:20 PM EDT [facility] Albumin, Plasma 3.5 3.5 - 5.2 g/dL 03/10/2025 12:20 PM EDT [facility] AST, Plasma 31 10 - 35 U/L 03/10/2025 12:20 PM EDT [facility] ALT, Plasma 46(H) 10 - 35 U/L 03/10/2025 12:20 PM EDT [facility] Alkaline Phosphatase, Plasma 110(H) 35 - 104 U/L 03/10/2025 12:20 PM EDT [facility] Total Bilirubin, Plasma 0.3 0.2 - 1.1 mg/dL 03/10/2025 12:20 PM EDT [facility] eGFRcr 137.4 mL/min/1.7 3m*2 03/10/2025 12:20 PM EDT [facility] Comment:Reported eGFRcr in m L/min/1.73m2 is based the CKD-EPI 2020 equation that does not use a race coefficient. Blood Venous blood specimen / Unknown Venipuncture / Unknown 03/10/2025 11:45 AM EDT 03/10/2025 11:55 AM EDT us Bre Maher MD LAB BLOOD ORDERABLES Final Result [facility] [address] [place] [address] * EKG now - STAT (adult) (03/10/2025 11:31 AM EDT) EKG DIAGNOSIS CLASS Borderline Normal MUSE ECG Ventricular Rate 112 BPM MUSE ECG Atrial Rate 112 BPM MUSE ECG NM Interval 130 ms MUSE ECG QRSD Interval 70 ms MUSE ECG QT Interval 312 ms MUSE ECG QTC Interval 425 ms MUSE ECG P [place] 75 degrees MUSE ECG R [place] 88 degrees MUSE ECG T Wave [place] 31 degrees MUSE ECG Diagnosis Sinus tachycardia MUSE ECG Diagnosis Otherwise normal ECG MUSE ECG Diagnosis MUSE ECG Diagnosis Confirmed by Amador Lockhart ([id number]) on 03/10/2025 11:50:04 AM MUSE ECG 03/10/2025 [...] Every 4 hours scheduled, First dose on [facility] 03/11/25 at 2000, Until Discontinued, Routine, Recovery(Phase II-Outpatient)/On Unit(Inpatient) Given 03/13/2025 8:12 AM EDT 3 mL Given 03/13/2025 3:24 AM EDT 3 mL Given 03/12/2025 11:33 PM EDT 3 mL ipratropium-albuterol (Duo-Neb) 0.5-2.5 mg/3 mL nebulizer solution 3 mL 3 mL, Nebulization, Every 6 hours RT, First dose (after last modification) on [facility] 03/13/25 at 1500, Until Discontinued, Routine, Recovery(Phase [...] patch, Apply externally, Daily, First dose on [facility] 03/11/25 at 1830, Until Discontinued, Administer over 12 Hours, Routine Medication Applied 03/15/2025 8:05 AM EDT 1 patch Back Medication Applied 03/14/2025 8:04 AM EDT 1 patch Back Medication Applied 03/13/2025 9:15 AM EDT 1 patch Other methocarbamol (Robaxin) tablet 500 mg 500 mg, Oral, Every 6 hours scheduled, First dose on [facility] 03/11/25 at 1830, Until Discontinued, Routine, [...] Huitron) 0802 (Given - Provider: Carie Maradiaga, CARMELITA)2137 (Not Given - Provider: Latoya Huitron - Reason: Patient/family refused) 0805 (Given - Provider: aCrie Maradiaga, CARMELITA) sodium chloride 0.9 % flush [...] Provider: Latoya Huitron)0803 (See Alternative - Provider: aCrie Maradiaga RN)1210 (See Alternative - Provider: Carie [...] documented as of this encounter Care Teams Advertising Intern Relationship Specialty Start Date End Date Pcp, [place] [address] PCP - General Family Medicine 02/16/25 documented as of this encounter
--- OUTSIDE RECORDS SUMMARY | 2025-03-11 13:50 | XMS_ITS | Encounter Summary ---
Author Organization Healthcare Address [address] [id number] Care Team Providers Care Health Lead Name Role Phone Pcp, No Primary Care Provider Unavailabl e Reason for Visit * Reason Comments Chest Pain * Auth/Cert (Routine) Specialty Diagnoses / Procedures Referred By Contac t Referred To Contact Diagnoses Empyema lung (CMS/HCC) Pleural effusion Kalyan Cao MD [address] [address] Phone: tel: fax: [facility] A Inpatient [address] [place] [address] Phone: tel: Referral ID Status Reason Start Date Expiration Date Visits Re quested Visits Authorized [id number] 1 1 Encounter Details Date Type Department Care Team (Late st Contact Info) Description 03/11/2025 1:50 PM EDT - 03/11/2025 5:20 PM EDT Surgery [facility] OPERATING ROOM [address] [place] [address] Kaylan Cao MD [address] [address] R VATS Decortication, Possible Pleurodesis Surgery Details Date/Time Status Location OR Service Patient Class Case Class Case Type Trauma Case? 03/11/2025 1:50 PM Posted [facility] OR 11 Cardiothoracic Surgery Inpatient T-Timed: to be done within 24 hours Panel 1 Procedure LRB Anes Op Region Wound Class Comments R VATS Decortication, Possib le Pleurodesis Right General Chest Class I/ Clean Surgeon Surgeon Role Service Panel Kaylan Cao MD Primary Cardiothoracic Surg franc[place] 1 Bre Matson MD Resident - Assisting 1 documented in this encounter Social History Tobacco Use Types Packs/Day Years [...] any time in the past 12 m [facility], were you homeless or living in a halfway (including now)? No 03/11/2025 Utilities Answer Date [...] Sign Reading Time Taken Comments Blood Pressure 105/70 03/11/2025 2:41 PM EDT Pulse 100 03/11/2025 2:41 PM EDT Temperature 36.9 C (98.4 F) 03/11/2025 2:41 PM EDT Respiratory Rate 16 03/11/2025 2:41 PM EDT Oxygen Saturation 97% 03/11/2025 2:41 PM EDT Inhaled Oxygen Concentration - - Weight 47.2 kg (104 lb 0.9 oz) 03/11/2025 6:00 A M EDT Height 162.6 cm [...] Clinic discharge # - For urgent questions/concerns: [facility] hotline: , option 4 - ask for the thoracic surgeon vamp strap ironer. documented in this encounter Medications at Time of Discharge acetaminophen (Tylenol) 500 MG tablet Take 2 tablets by mouth every 8 hours. 100 tablet 1 03/15/2025 5 etonogestrel-elutin g contraceptive device 68 MG implant [...] MD PCP name and Address: Pcp, Venessa [address] [place] [address] Referring provider name and address: No referring [...] Your Medications These medications were sent to [facility] - [place], [place] - [address] [facility] [address] acetaminophen 500 MG tablet lidocaine 5 % [...] APRN History of - about 3 weeks TRAUMA COUNSELLOR - resolved with chest tube RESOLVED: Empyema [...] Clinic discharge # - For urgent questions/concerns: [facility] hotline: , option 4 - ask for the thoracic surgeon vamp strap ironer. Outpatient Follow-Up No future appointments. Test Results [...] as documented. * Progress Notes - Margarita Greco, RN - 03/15/2025 10:49 AM EDT Case Management Discharge Note Sarah Crane 25 y.o. female CSN: [id number] Admission: 03/10/2025 11:46 AM Primary Problem: Pleural effusion Primary General Worker: Primary Caregiver: Self Assistance Available at Discharge: [...] patient may discharging pending repeat CXR. RN ADA met with patient at bedside and she [...] from the original note were not included. [facility] Department of Surgery Section of Thoracic Surgery Progress Note 03/14/25 Sarah Crane History of Present Illness Sarah Crane is a 25 y.o. female that presented to [facility] on 03/10/2025 after CXR demonstrated moderate R pleural effusion at appointment with PCP on 03/09. The patient had a spontaneous pneumothorax 3 weeks TRAUMA COUNSELLOR, for which she was admitted to an [...] Airway None Output by Drain (mL) 03/12/25 07 - 03/12/25 18503/12/25 190 - 03/13/25 0659 03/13/25 07 - 03/13/25 18503/13/25 190 - 03/14/25 0659 03/14/25 0700 - 03/14/25 [...] APRN History of - about 3 weeks TRAUMA COUNSELLOR - resolved with chest tube Anemia Overview [...] from the original note were not included. [facility] Department of Surgery Section of Thoracic Surgery Progress Note 03/13/25 Sarah Crane History of Present Illness Sarah Crane is a 25 y.o. female that presented to [facility] on 03/10/2025 after CXR demonstrated moderate R pleural effusion at appointment with PCP on 03/09. The patient had a spontaneous pneumothorax 3 weeks TRAUMA COUNSELLOR, for which she was admitted to an [...] 0659 03/12/25 07 - 03/12/25 1859 03/12/25 190 - 03/13/25 0659 03/13/25 0700 - 03/13/25 [...] APRN History of - about 3 weeks TRAUMA COUNSELLOR - resolved with chest tube Anemia Overview [...] plan as documented. * Consults - Sharla Germian RD - 03/12/2025 10:22 AM EDT Adult Nutrition Evaluation Note Sarah Crane 25 y.o. female CSN: [id number] Room/Bed 642/642A Nutrition evaluation type: assessment Reason [...] Supplemental oxygen O2 Delivery Method: Nasal cannula Jennifer Coma Scale Score: 15 Hamlet Scale Score: [...] BMI (Calculated): 17.66 Weight Evaluation: Underweight (BMI<18.5) [place] Body Weight (kg): 54.5 Percent [place] Body Weight: 86 Wt Readings from Last [...] from the original note were not included. [facility] Department of Surgery Section of Thoracic Surgery Progress Note 03/12/25 Sarah Crane History of Present Illness Sarah Crane is a 25 y.o. female that presented to [facility] on 03/10/2025 after CXR demonstrated moderate R pleural effusion at appointment with PCP on 03/09. The patient had a spontaneous pneumothorax 3 weeks TRAUMA COUNSELLOR, for which she was admitted to an [...] Output by Drain (mL) 03/10/25 0700 - 04/16/25 1859 03/10/25 1900 - 03/11/25 0659 03/11/25 07 - 03/11/25 1859 03/11/25 1900 - 03/12/25 0659 03/12/25 07 - 03/12/25 0911 Requested LDAs do not [...] Overview Signed 03/11/2025 9:48 AM by Queenie Landry, CHULA History of - about 3 weeks TRAUMA COUNSELLOR - resolved with chest tube Anemia Overview Signed 03/11/2025 9:49 AM by Queenie Landry, CHULA Monitor - Transfuse as indicated BMI less [...] CLD Anticoagulation/DVT ppx: SubQ heparin Pain management: [facility] Chest Tubes: x2 on suction, one with minor air leak Chest Tube Output: SS I have answered and addressed all issues and concerns from the patient and nursing staff. I have notified senior resident/attending vamp strap ironer with any issues or concerns. Juvencio Tellez [...] PM EDT Operative Note Date: 03/11/25 Location: [facility] Name: Sarah Crane, : 2000, Diagnoses: Pre-op Diagnosis Pleural effusion Post-op Diagnosis Pleural effusion Procedure(s): Bronchoscopy, right VATS decortication Attending Surgeon(s): * Kaylan Cao - Primary Welfare Case Worker(s): * Bre Matson MD - Resident - [...] several liters of warm saline. A 24 Maltese chest tube was placed through a separate [...] Note Sarah Crane 25 y.o. female CSN: [id number] Admission: 03/10/2025 11:46 AM Primary Problem: Pleural effusion Superintendent Renting Managing reviewed chart and spoke with the patient at bedside to complete this Initial Case Management Assessment. PCP: Eliza Moser APRN Emergency Contact: Extended Emergency Contact Information Primary Emergency Contact: Lydia Crane Mobile Relation: Mother Insurance: Primary Visit Coverage Payer Plan Sponsor Code Group Number Group Name TEENA IBARRA HMO [id number] Primary Visit Coverage Subscriber Subscriber ID Subscriber Name Subscriber N Subscriber Address [id number] SARAH CRANE [id number] [place] [address] Patient information: Primary Caregiver: Self Support System: Immediate family Daily Living Activities: Functional Status: Independent Living Arrangements: Children Type of Residence: Private residence, Single Level [address] [place] [address] Smoker in the Home?: N/A Current DME: [...] DME Provider: n/a Living Will/Advance Directive/Power of Career Development Facilitator /Guardian: Unable to assess: Yes Have you reviewed your Advance Directive and is it valid for this stay?: Not applicable Advance Directive: Patient does not have advance directive Information Provided on Healthcare Directives: No Pre-existing DNR/DNI Order: No Patient Requests Assistance: No Additional Comments: RN ADA met with patient at bedside for initial assessment and discuss role in discharge planning. Confirmed address on file. Patient lives with her child in a single level home. Patient states she was independent prior to admit. Denies DME/HH/HD/O2. PCP is Eliza Moser. Patient has [email or web address] insurance and uses [facility]. Family will assist and transport at discharge. No CM/SW needs identified. Will continue to follow and assist. Margarita Greco RN * Significant Event - Gloria Elizalde [...] from the original note were not included. [facility] Department of Surgery Section of Thoracic [...] effusion concerning for empyema. Dispo: Admit to [facility] Consent for R VATS washout/decortication tomorrow with Dr. Cao History of Present Illness: Chief Complaint: Persistent R chest pain with associated pleural effusion. Sarah Crane is a 25 y.o. female w/no significant past medical history presented to the [facility] on 03/10/2025 after CXR demonstrated moderate R [...] smoking. Immunizations: Immunization History Administered Date(s) Administered Seguricel COVID-19 Vaccine (Purple Cap) 12+ 12/02/2021 I [...] effusion concerning for empyema. Dispo: Admit to [facility] Consent for R VATS washout/decortication [...] Pain [facility] Note Sarah Carne is a 25 y.o. female who presents to ED with chest/lung pain. Pt notes she has a spontaneous collapse of R lung 3 weeks ago. Pt states that she had a follow up yesterday in [place]. Today she was told there was fluid and poss PNA and was sent to ED. Pt had a chest tube for 3-4 days for previous lung collapse. Patient denies fever, chills, nausea, vomiting, and diarrhea. History provided by: Patient language interpreter used: No MAIN ED NOTE//Lia Al MD: [...] 03/10/25 1140 Insert peripheral IV Continuous Acknowledged BRE MAHER 03/10/25 1140 Hepatitis C Antibody - ED Once Final result BRE MAHER 03/10/25 1140 ED Protocol - HIV 1/2 [...] 03/10/25 1140 CBC w/diff STAT Final result BRE MAHER 03/10/25 1140 PT-INR STAT Final result BRE [...] Attestation: The documentation was recorded by Marisabel Jaen acting as scribe in my presence at [...] COMPARISON: Same date at 0418 hours FINDINGS: Hmlpt-ne-xpniqqra left-sided pneumothorax without change. Small right-sided pleural effusion, stable. Mild right infrahilar opacities are similar to the prior. No left-sided pleural effusion or pneumothorax. No left-sided airspace disease. Procedure Note Ashleigh Samayoa MD - 03/15/2025 CLINICAL INDICATION: S/p chest tube removal TECHNIQUE: XR CHEST 1 VIEW COMPARISON: Same date at 0418 hours FINDINGS: Rpekj-uv-clowodvq left-sided pneumothorax without change. Smallright-sided pleural effusion, [...] - 99 mg/dL 03/14/2025 4:24 AM EDT [facility] BUN, Plasma 8 7 - 21 mg/dL 03/14/2025 4:24 AM EDT [facility] Creatinine, Plasma 0.49(L) 0.60 - 1.10 mg/dL 03/14/2025 4:24 AM EDT [facility] BUN/Creatinine Ratio 16 03/14/2025 4:24 AM EDT [facility] Sodium, Plasma 137 136 - 145 mmol/L 03/14/2025 4:24 AM EDT [facility] Potassium, Plasma 3.6 3.6 - 4.9 mmol/L 03/14/2025 4:24 AM EDT [facility] Chloride, Plasma 102 97 - 107 mmol/L 03/14/2025 4:24 AM EDT [facility] CO2, Plasma 28 22 - 29 mmol/L 03/14/2025 4:24 AM EDT [facility] Anion Gap 7 6 - 16 mmol/L 03/14/2025 4:24 AM EDT [facility] Total Calcium, Plasma 8.9 8.9 - 10.2 mg/dL 03/14/2025 4:24 AM EDT [facility] Phosphorus, Plasma 4.7(H) 2.5 - 4.5 mg/dL 03/14/2025 4:24 AM EDT [facility] Albumin, Plasma 3.1(L) 3.5 - 5.2 g/dL 03/14/2025 4:24 AM EDT [facility] eGFRcr 136.0 mL/min/1.7 3m*2 03/14/2025 4:24 AM EDT [facility] Comment:Reported eGFRcr in m L/min/1.73m2 is based the CKD-EPI 2020 equation that does not use a race coefficient. Blood Venous blood specimen / Unknown Venipuncture / Unknown 03/14/2025 3:26 AM EDT 03/14/2025 3:48 AM EDT us Kaylan Cao MD LAB BLOOD ORDERABLES Final R esult Performing Organization Address City/[facility]/ZIP Co de Phone Number [facility] [address] [place] [address] * Magnesium (03/14/2025 3:26 AM EDT) Magnesium, Plasma 1.9 1.9 - 2.4 mg/dL 03/14/2025 4:24 AM EDT [facility] Blood Venous blood specimen / Unknown Venipuncture / Unknown 03/14/2025 3:26 AM EDT 03/14/2025 3:48 AM EDT us Kaylan Cao MD LAB BLOOD ORDERABLES Final R esult Performing Organization Address City/[facility]/ZIP Co de Phone Number [facility] [address] [place] [address] * (ABNORMAL) CBC W/O Differential (03/14/2025 3:26 AM EDT) WBC Count 10.78(H) 3.70 - 10.30 10*3/uL LAB HEMATOLOGY METHOD 03/14/2025 3:55 AM EDT [facility] RBC Count 3.49(L) 3.90 - 5.20 10*6/uL LAB HEMATOLOGY METHOD 03/14/2025 3:55 AM EDT [facility] HGB 10.2(L) 11.2 - 15.7 g/dL LAB HEMATOLOGY METHOD 03/14/2025 3:55 AM EDT [facility] HCT 32.9(L) 34.0 - 45.0 % LAB HEMATOLOGY METHOD 03/14/2025 3:55 AM EDT [facility] Platelet Count 668(H) 155 - 369 10*3/uL LAB HEMATOLOGY METHOD 03/14/2025 3:55 AM EDT [facility] MCV 94 79 - 98 fL LAB HEMATOLOGY METHOD 03/14/2025 3:55 AM EDT [facility] MCH 29.2 26.0 - 32.0 pg LAB HEMATOLOGY METHOD 03/14/2025 3:55 AM EDT [facility] MCHC 31.0 30.7 - 35.5 g/dL LAB HEMATOLOGY METHOD 03/14/2025 3:55 AM EDT [facility] RDW 12.5 11.5 - 14.5 % LAB HEMATOLOGY METHOD 03/14/2025 3:55 AM EDT [facility] MPV 8.8 8.8 - 12.5 fL LAB HEMATOLOGY METHOD 03/14/2025 3:55 AM EDT [facility] nRBC 0.0 <=0.0 per 100 WBCs LAB HEMATOLOGY METHOD 03/14/2025 3:55 AM EDT [facility] Blood Venous blood specimen / Unknown Venipuncture / Unknown 03/14/2025 3:26 AM EDT 03/14/2025 3:48 AM EDT us Kaylan Cao MD LAB BLOOD ORDERABLES Final R esult [facility] [address] [place] [address] * XR Chest 1 View (03/13/2025 4:23 [...] - 99 mg/dL 03/13/2025 4:23 AM EDT [facility] BUN, Plasma 7 7 - 21 mg/dL 03/13/2025 4:23 AM EDT [facility] Creatinine, Plasma 0.53(L) 0.60 - 1.10 mg/dL 03/13/2025 4:23 AM EDT [facility] BUN/Creatinine Ratio 13 03/13/2025 4:23 AM EDT [facility] Sodium, Plasma 139 136 - 145 mmol/L 03/13/2025 4:23 AM EDT [facility] Potassium, Plasma 3.9 3.6 - 4.9 mmol/L 03/13/2025 4:23 AM EDT [facility] Chloride, Plasma 102 97 - 107 mmol/L 03/13/2025 4:23 AM EDT [facility] CO2, Plasma 29 22 - 29 mmol/L 03/13/2025 4:23 AM EDT [facility] Anion Gap 8 6 - 16 mmol/L 03/13/2025 4:23 AM EDT [facility] Total Calcium, Plasma 8.9 8.9 - 10.2 mg/dL 03/13/2025 4:23 AM EDT [facility] Phosphorus, Plasma 4.1 2.5 - 4.5 mg/dL 03/13/2025 4:23 AM EDT [facility] Albumin, Plasma 2.9(L) 3.5 - 5.2 g/dL 03/13/2025 4:23 AM EDT [facility] eGFRcr 133.5 mL/min/1.7 3m*2 03/13/2025 4:23 AM EDT [facility] Comment:Reported eGFRcr in m L/min/1.73m2 is based the CKD-EPI 2020 equation that does not use a race coefficient. Blood Venous blood specimen / Unknown Venipuncture / Unknown 03/13/2025 3:33 AM EDT 03/13/2025 3:50 AM EDT us Kaylan Cao MD LAB BLOOD ORDERABLES Final R esult [facility] [address] [place] [address] * Magnesium (03/13/2025 3:33 AM EDT) Magnesium, Plasma 2.1 1.9 - 2.4 mg/dL 03/13/2025 4:23 AM EDT [facility] Blood Venous blood specimen / Unknown Venipuncture / Unknown 03/13/2025 3:33 AM EDT 03/13/2025 3:50 AM EDT us Kaylan Cao MD LAB BLOOD ORDERABLES Final R esult [facility] [address] [place] [address] * (ABNORMAL) CBC W/O Differential (03/13/2025 3:33 AM EDT) WBC Count 14.97(H) 3.70 - 10.30 10*3/uL LAB HEMATOLOGY METHOD 03/13/2025 4:07 AM EDT [facility] RBC Count 3.02(L) 3.90 - 5.20 10*6/uL LAB HEMATOLOGY METHOD 03/13/2025 4:07 AM EDT [facility] HGB 9.1(L) 11.2 - 15.7 g/dL LAB HEMATOLOGY METHOD 03/13/2025 4:07 AM EDT [facility] HCT 28.1(L) 34.0 - 45.0 % LAB HEMATOLOGY METHOD 03/13/2025 4:07 AM EDT [facility] Platelet Count 638(H) 155 - 369 10*3/uL LAB HEMATOLOGY METHOD 03/13/2025 4:07 AM EDT [facility] MCV 93 79 - 98 fL LAB HEMATOLOGY METHOD 03/13/2025 4:07 AM EDT [facility] MCH 30.1 26.0 - 32.0 pg LAB HEMATOLOGY METHOD 03/13/2025 4:07 AM EDT [facility] MCHC 32.4 30.7 - 35.5 g/dL LAB HEMATOLOGY METHOD 03/13/2025 4:07 AM EDT [facility] RDW 12.0 11.5 - 14.5 % LAB HEMATOLOGY METHOD 03/13/2025 4:07 AM EDT [facility] MPV 9.1 8.8 - 12.5 fL LAB HEMATOLOGY METHOD 03/13/2025 4:07 AM EDT [facility] nRBC 0.0 <=0.0 per 100 WBCs LAB HEMATOLOGY METHOD 03/13/2025 4:07 AM EDT [facility] Blood Venous blood specimen / Unknown Venipuncture / Unknown 03/13/2025 3:33 AM EDT 03/13/2025 3:53 AM EDT Kaylan Cao MD LAB BLOOD ORDERABLES Final R esult [facility] [address] [place] [address] * XR Chest 1 View (03/13/2025 1:33 [...] Silvestre Jiménez MD on 03/13/2025 5:45 AM Kaylan Cao MD IMG XR PROCEDURES Final Resu lt * (ABNORMAL) Renal function panel (03/12/2025 3:23 AM EDT) Glucose, Plasma 164(H) 74 - 99 mg/dL 03/12/2025 4:36 AM EDT [facility] BUN, Plasma 8 7 - 21 mg/dL 03/12/2025 4:36 AM EDT [facility] Creatinine, Plasma 0.48(L) 0.60 - 1.10 mg/dL 03/12/2025 4:36 AM EDT [facility] BUN/Creatinine Ratio 17 03/12/2025 4:36 AM EDT [facility] Sodium, Plasma 139 136 - 145 mmol/L 03/12/2025 4:36 AM EDT [facility] Potassium, Plasma 4.6 3.6 - 4.9 mmol/L 03/12/2025 4:36 AM EDT [facility] Chloride, Plasma 101 97 - 107 mmol/L 03/12/2025 4:36 AM EDT [facility] CO2, Plasma 23 22 - 29 mmol/L 03/12/2025 4:36 AM EDT [facility] Anion Gap 15 6 - 16 mmol/L 03/12/2025 4:36 AM EDT [facility] Total Calcium, Plasma 9.7 8.9 - 10.2 mg/dL 03/12/2025 4:36 AM EDT [facility] Phosphorus, Plasma 4.8(H) 2.5 - 4.5 mg/dL 03/12/2025 4:36 AM EDT [facility] Albumin, Plasma 3.6 3.5 - 5.2 g/dL 03/12/2025 4:36 AM EDT [facility] eGFRcr 136.7 mL/min/1.7 3m*2 03/12/2025 4:36 AM EDT [facility] Comment:Reported eGFRcr in m L/min/1.73m2 is based the CKD-EPI 2020 equation that does not use a race coefficient. Blood Venous blood specimen / Unknown Venipuncture / Unknown 03/12/2025 3:23 AM EDT 03/12/2025 4:03 AM EDT us Kaylan Cao MD LAB BLOOD ORDERABLES Final R esult [facility] [address] [place] [address] * Magnesium (03/12/2025 3:23 AM EDT) Magnesium, Plasma 2.2 1.9 - 2.4 mg/dL 03/12/2025 4:36 AM EDT [facility] Blood Venous blood specimen / Unknown Venipuncture / Unknown 03/12/2025 3:23 AM EDT 03/12/2025 4:03 AM EDT us Kaylan Cao MD LAB BLOOD ORDERABLES Final R esult [facility] [address] [place] [address] * (ABNORMAL) CBC W/O Differential (03/12/2025 3:23 AM EDT) WBC Count 20.78(H) 3.70 - 10.30 10*3/uL LAB HEMATOLOGY METHOD 03/12/2025 4:01 AM EDT [facility] RBC Count 3.99 3.90 - 5.20 10*6/uL LAB HEMATOLOGY METHOD 03/12/2025 4:01 AM EDT [facility] HGB 11.8 11.2 - 15.7 g/dL LAB HEMATOLOGY METHOD 03/12/2025 4:01 AM EDT [facility] HCT 36.7 34.0 - 45.0 % LAB HEMATOLOGY METHOD 03/12/2025 4:01 AM EDT [facility] Platelet Count 898(H) 155 - 369 10*3/uL LAB HEMATOLOGY METHOD 03/12/2025 4:01 AM EDT [facility] MCV 92 79 - 98 fL LAB HEMATOLOGY METHOD 03/12/2025 4:01 AM EDT [facility] MCH 29.6 26.0 - 32.0 pg LAB HEMATOLOGY METHOD 03/12/2025 4:01 AM EDT [facility] MCHC 32.2 30.7 - 35.5 g/dL LAB HEMATOLOGY METHOD 03/12/2025 4:01 AM EDT [facility] RDW 11.9 11.5 - 14.5 % LAB HEMATOLOGY METHOD 03/12/2025 4:01 AM EDT [facility] MPV 9.0 8.8 - 12.5 fL LAB HEMATOLOGY METHOD 03/12/2025 4:01 AM EDT [facility] nRBC 0.0 <=0.0 per 100 WBCs LAB HEMATOLOGY METHOD 03/12/2025 4:01 AM EDT [facility] Blood Venous blood specimen / Unknown Venipuncture / Unknown 03/12/2025 3:23 AM EDT 03/12/2025 3:55 AM EDT us Kaylan Cao MD LAB BLOOD ORDERABLES Final R esult [facility] [address] [place] [address] * XR Chest 1 View (03/12/2025 1:40 [...] Julieta Millan MD on 03/11/2025 7:06 PM us Kaylan Cao MD IMG XR PROCEDURES Final Resu lt * (ABNORMAL) Body Fluid Culture and Gram Stain (03/11/2025 5:21 PM EDT) Culture Light Growth 03/14/2025 7:03 AM EDT [facility] Culture Staphylococcus epidermidis(A) SELENE 03/14/2025 7:03 AM EDT [facility] Comment: This isolate has been identified using the FDA Approved [employer] System The organism value for this result has been updated. These results have been appended to the previously preliminary verified report. Gram Stain Result Few Polymorphonuclear leukocytes 03/14/2025 7:03 AM EDT [facility] Gram Stain Result No organisms seen 03/14/2025 7:03 AM EDT [facility] Body Fluid Structure of right pleural [...] MICROBIOLOGY - GENERAL O RDERABLES Final Result [facility] [address] [place] [address] * Surgical Pathology Exam (03/11/2025 4:57 PM EDT) Case Report Surgical Pathology Case: [id number] Authorizing Provider: Kaylan Cao MD Collected: 03/11/2025 1657 Ordering Location: [facility] OPERATING ROOM Received: 03/12/2025 0813 Pathologist: Goyo Haque MD Specimen: Other (specify site), Right Pleural Biopsy 03/16/2025 11:09 AM EDT [facility] Final Diagnosis A. RIGHT PLEURAL, BIOPSY: - GRANULATION TISSUE, INFLAMMATION WITH PIGMENT LADEN MACROPHAGES AND REACTIVE CHANGES ( CLINICAL HISTORY OF EMPYEMA WITH PNEUMOTHORAX) 03/16/2025 11:09 AM EDT [facility] at 1108 EDT Clinical Information Pleural effusion [J90] 03/16/2025 11:09 AM EDT [facility] Gross Description A. RIGHT PLEURAL BIOPSY Received in formalin labeled right pleura biopsy , are 3 pink-red soft tissue fragments that range from 0.7-1.2 cm in greatest dimension. Entirely submitted in cassette A1. Cold Time: 15h 16m Cristel Prado 03/16/2025 11:09 AM EDT [facility] Note: A resident was involved in the service. I attest I examined the relevant preparations for the specimens and confirmed the diagnosis or interpretation. 03/16/2025 11:09 AM EDT [facility] Tissue Topography unknown / Unknown 03/11/2025 4:57 PM EDT 03/12/2025 8:13 AM EDT Comment:Pre-op diagnosis: Pleural effusion [J90] us Kaylan Cao MD LAB PATHOLOGY ORDERABLES Fin al Result Performing Organization Address City/State/[facility] Co de Phone Number [facility] [address] [place] [address] * POCT , URINE (03/11/2025 3:00 PM EDT) POCT Test, Urine Negative Males and Non- Females: Negative 03/11/2025 3:06 PM EDT [facility] Office Services Assistant ID Linnea Hughes 03/11/2025 3:06 PM EDT [facility]ALTH[facility]ARE LAB Device ID [id number] 03/11/2025 3:06 PM EDT [facility] Urine Urine specimen obtained by clean catch procedure / Unknown 03/11/2025 3:00 PM EDT 03/11/2025 3:06 PM EDT Kaylan Cao MD LAB POINT OF CARE TE ST DOCKED DEVICE UNSOLICITED RESULTS Final Result [facility] [address] [place] [address] * XR Chest 1 View (03/11/2025 4:22 [...] - 99 mg/dL 03/11/2025 4:35 AM EDT [facility] BUN, Plasma 7 7 - 21 mg/dL 03/11/2025 4:35 AM EDT [facility] Creatinine, Plasma 0.50(L) 0.60 - 1.10 mg/dL 03/11/2025 4:35 AM EDT [facility] BUN/Creatinine Ratio 14 03/11/2025 4:35 AM EDT [facility] Sodium, Plasma 135(L) 136 - 145 mmol/L 03/11/2025 4:35 AM EDT [facility] Potassium, Plasma 4.0 3.6 - 4.9 mmol/L 03/11/2025 4:35 AM EDT [facility] Chloride, Plasma 103 97 - 107 mmol/L 03/11/2025 4:35 AM EDT [facility] CO2, Plasma 24 22 - 29 mmol/L 03/11/2025 4:35 AM EDT [facility] Anion Gap 8 6 - 16 mmol/L 03/11/2025 4:35 AM EDT [facility] Total Calcium, Plasma 8.9 8.9 - 10.2 mg/dL 03/11/2025 4:35 AM EDT [facility] Phosphorus, Plasma 4.1 2.5 - 4.5 mg/dL 03/11/2025 4:35 AM EDT [facility] Albumin, Plasma 3.1(L) 3.5 - 5.2 g/dL 03/11/2025 4:35 AM EDT [facility] eGFRcr 135.3 mL/min/1.7 3m*2 03/11/2025 4:35 AM EDT [facility] Comment:Reported eGFRcr in m L/min/1.73m2 is based the CKD-EPI 2020 equation that does not use a race coefficient. Blood Venous blood specimen / Unknown Venipuncture / Unknown 03/11/2025 3:51 AM EDT 03/11/2025 3:57 AM EDT us Kaylan Cao MD LAB BLOOD ORDERABLES Final R esult [facility] [address] [place] [address] * Magnesium (03/11/2025 3:51 AM EDT) Magnesium, Plasma 2.2 1.9 - 2.4 mg/dL 03/11/2025 4:35 AM EDT [facility] Blood Venous blood specimen / Unknown Venipuncture / Unknown 03/11/2025 3:51 AM EDT 03/11/2025 3:57 AM EDT us Kaylan Cao MD LAB BLOOD ORDERABLES Final R esult [facility] [address] [place] [address] * (ABNORMAL) CBC W/O Differential (03/11/2025 3:51 AM EDT) Pathologist [facility] WBC Count 9.63 3.70 - 10.30 10*3/uL LAB HEMATOLOGY METHOD 03/11/2025 4:18 AM EDT [facility] RBC Count 3.13(L) 3.90 - 5.20 10*6/uL LAB HEMATOLOGY METHOD 03/11/2025 4:18 AM EDT [facility] HGB 9.5(L) 11.2 - 15.7 g/dL LAB HEMATOLOGY METHOD 03/11/2025 4:18 AM EDT [facility] HCT 29.0(L) 34.0 - 45.0 % LAB HEMATOLOGY METHOD 03/11/2025 4:18 AM EDT [facility] Platelet Count 654(H) 155 - 369 10*3/uL LAB HEMATOLOGY METHOD 03/11/2025 4:18 AM EDT [facility] MCV 93 79 - 98 fL LAB HEMATOLOGY METHOD 03/11/2025 4:18 AM EDT [facility] MCH 30.4 26.0 - 32.0 pg LAB HEMATOLOGY METHOD 03/11/2025 4:18 AM EDT [facility] MCHC 32.8 30.7 - 35.5 g/dL LAB HEMATOLOGY METHOD 03/11/2025 4:18 AM EDT [facility] RDW 12.1 11.5 - 14.5 % LAB HEMATOLOGY METHOD 03/11/2025 4:18 AM EDT [facility] MPV 9.2 8.8 - 12.5 fL LAB HEMATOLOGY METHOD 03/11/2025 4:18 AM EDT [facility] nRBC 0.0 <=0.0 per 100 WBCs LAB HEMATOLOGY METHOD 03/11/2025 4:18 AM EDT [facility] Blood Venous blood specimen / Unknown Venipuncture / Unknown 03/11/2025 3:51 AM EDT 03/11/2025 3:57 AM EDT Kaylan Cao MD LAB BLOOD ORDERABLES Final R esult Performing Organization Address City/[facility]/ZIP Co de Phone Number [facility] [address] [place] [address] * Type and screen (03/10/2025 4:28 PM [...] ORDERABL ES Final Result Performing Organization Address [facility] Co de Phone Number BLOOD BANK [address] [place] [address], [place] * CT Chest w IV Contrast [...] at day 5 03/15/2025 2:02 PM EDT [facility] Blood Structure of antecubital vein / Unknown Venipuncture / Unknown 03/10/2025 12:21 PM EDT 03/10/2025 12:35 PM EDT Narrative [facility] - 03/15/2025 2:02 PM EDT Low blood volume submitted, results may be compromised us Radames Jane MD LAB MICROBIOLOGY - GENE RAL ORDERABLES Final Result [facility] [address] [place] [address] * XR Chest 1 View (03/10/2025 12:15 [...] Jeevan Horvath MD on 03/10/2025 12:50 PM us Bre Maher MD IMG XR PROCEDURES Final Res ult * ED HIV 1/2 Antibody/Antigen Screen w/Reflex to HIV 1/2 Differentiation (03/10/2025 11:45 AM EDT) HIV 1 & 2 Antibody/Antigen Screen Non Reactive Non Reactive 03/10/2025 12:55 PM EDT [facility] Comment:Screening for HIV 1 & 2 antibodies, and P24 antigen is NONREACTIVE. No confirmatory testing is required. Blood Venous blood specimen / Unknown Venipuncture / Unknown 03/10/2025 11:45 AM EDT 03/10/2025 12:05 PM EDT us Bre Maher MD LAB BLOOD ORDERABLES Final Result [facility] [address] [place] [address] * Hepatitis C Antibody - ED (03/10/2025 11:45 AM EDT) Pathologist [facility] Hepatitis C Antibody Negative Negative 03/10/2025 12:57 PM EDT [facility] Blood Venous blood specimen / Unknown Venipuncture / Unknown 03/10/2025 11:45 AM EDT 03/10/2025 12:05 PM EDT Bre Maher MD LAB BLOOD ORDERABLES Final Result Performing Organization Address [facility] [place] [address] * (ABNORMAL) PT-INR (03/10/2025 11:45 AM EDT) [facility] Prothrombin Time 15.0(H) 12.0 - 14.3 sec 03/10/2025 12:13 PM EDT [facility] INR 1.2(H) 0.9 - 1.1 03/10/2025 12:13 PM EDT [facility] Blood Venous blood specimen / Unknown Venipuncture / Unknown 03/10/2025 11:45 AM EDT 03/10/2025 11:55 AM EDT Narrative [facility] - 03/10/2025 12:13 PM EDT OPTIMAL INR RANGES FOR PATIENT ON ORAL ANTICOAGULANT THERAPY Prevention of venous thromboembolism INR 2.0 to 3.0 In patients with heart disease: Atrial fibrillation INR 2.0 to 3.0 Valvular heart disease INR 2.0 to 3.0 Tissue heart valves INR 2.0 to 3.0 Mechanical prosthetic valves INR 2.5 to 3.5 Prevention of recurrent AR INR 2.5 to 3.5 us Bre Maher MD LAB BLOOD ORDERABLES Final Result Performing Organization Address City/[facility]/[place] [address] * (ABNORMAL) CBC w/diff (03/10/2025 11:45 AM EDT) WBC Count 13.18(H) 3.70 - 10.30 10*3/uL LAB HEMATOLOGY METHOD 03/10/2025 12:26 PM EDT [facility] RBC Count 3.43(L) 3.90 - 5.20 10*6/uL LAB HEMATOLOGY METHOD 03/10/2025 12:26 PM EDT [facility] HGB 10.3(L) 11.2 - 15.7 g/dL LAB HEMATOLOGY METHOD 03/10/2025 12:26 PM EDT [facility] HCT 31.6(L) 34.0 - 45.0 % LAB HEMATOLOGY METHOD 03/10/2025 12:26 PM EDT [facility] Platelet Count 845(H) 155 - 369 10*3/uL LAB HEMATOLOGY METHOD 03/10/2025 12:26 PM EDT [facility] MCV 92 79 - 98 fL LAB HEMATOLOGY METHOD 03/10/2025 12:26 PM EDT [facility] MCH 30.0 26.0 - 32.0 pg LAB HEMATOLOGY METHOD 03/10/2025 12:26 PM EDT [facility] MCHC 32.6 30.7 - 35.5 g/dL LAB HEMATOLOGY METHOD 03/10/2025 12:26 PM EDT [facility] RDW 11.9 11.5 - 14.5 % LAB HEMATOLOGY METHOD 03/10/2025 12:26 PM EDT [facility] MPV 9.1 8.8 - 12.5 fL LAB HEMATOLOGY METHOD 03/10/2025 12:26 PM EDT [facility] nRBC 0.0 <=0.0 per 100 WBCs LAB HEMATOLOGY METHOD 03/10/2025 12:26 PM EDT [facility] Differential Type Automated LAB HEMATOLOGY METHOD 03/10/2025 12:26 PM EDT [facility] Neutrophils % 76 % LAB HEMATOLOGY METHOD 03/10/2025 12:26 PM EDT [facility] Lymphocytes % 14 % LAB HEMATOLOGY METHOD 03/10/2025 12:26 PM EDT [facility] Monocytes % 7 % LAB HEMATOLOGY METHOD 03/10/2025 12:26 PM EDT [facility] Eosinophils % 1 % LAB HEMATOLOGY METHOD 03/10/2025 12:26 PM EDT [facility] Basophils % 1 % LAB HEMATOLOGY METHOD 03/10/2025 12:26 PM EDT [facility] Immature Granulocytes % 1 % LAB HEMATOLOGY METHOD 03/10/2025 12:26 PM EDT [facility] Neutrophils Absolute 10.12(H) 1.60 - 6.10 10*3/uL LAB HEMATOLOGY METHOD 03/10/2025 12:26 PM EDT [facility] Lymphocytes Absolute 1.87 1.20 - 3.90 10*3/uL LAB HEMATOLOGY METHOD 03/10/2025 12:26 PM EDT [facility] Monocytes Absolute 0.95(H) 0.30 - 0.90 10*3/uL LAB HEMATOLOGY METHOD 03/10/2025 12:26 PM EDT [facility] Eosinophils Absolute 0.07 0.00 - 0.50 10*3/uL LAB HEMATOLOGY METHOD 03/10/2025 12:26 PM EDT [facility] Basophils Absolute 0.09 0.00 - 0.10 10*3/uL LAB HEMATOLOGY METHOD 03/10/2025 12:26 PM EDT [facility] Immature Granulocytes Absolute 0.08(H) 0.00 - 0.06 10*3/uL LAB HEMATOLOGY METHOD 03/10/2025 12:26 PM EDT [facility] Blood Venous blood specimen / Unknown Venipuncture / Unknown 03/10/2025 11:45 AM EDT 03/10/2025 11:55 AM EDT Narrative [facility] - 03/10/2025 12:26 PM EDT Therapeutic decision making should be based on absolute values, rather than percentages. us Bre Maher MD LAB BLOOD ORDERABLES Final Result [facility] [address] [place] [address] * (ABNORMAL) CMP (03/10/2025 11:45 AM EDT) Pathologist [facility] Glucose, Plasma 111(H) 74 - 99 mg/dL 03/10/2025 12:20 PM EDT [facility] BUN, Plasma 10 7 - 21 mg/dL 03/10/2025 12:20 PM EDT [facility] Creatinine, Plasma 0.47(L) 0.60 - 1.10 mg/dL 03/10/2025 12:20 PM EDT [facility] BUN/Creatinine Ratio 21 03/10/2025 12:20 PM EDT [facility] Sodium, Plasma 136 136 - 145 mmol/L 03/10/2025 12:20 PM EDT [facility] Potassium, Plasma 4.1 3.6 - 4.9 mmol/L 03/10/2025 12:20 PM EDT [facility] Chloride, Plasma 99 97 - 107 mmol/L 03/10/2025 12:20 PM EDT [facility] CO2, Plasma 26 22 - 29 mmol/L 03/10/2025 12:20 PM EDT [facility] Anion Gap 11 6 - 16 mmol/L 03/10/2025 12:20 PM EDT [facility] Total Calcium, Plasma 9.4 8.9 - 10.2 mg/dL 03/10/2025 12:20 PM EDT [facility] Total Protein 7.9 6.3 - 7.9 g/dL 03/10/2025 12:20 PM EDT [facility] Albumin, Plasma 3.5 3.5 - 5.2 g/dL 03/10/2025 12:20 PM EDT [facility] AST, Plasma 31 10 - 35 U/L 03/10/2025 12:20 PM EDT [facility] ALT, Plasma 46(H) 10 - 35 U/L 03/10/2025 12:20 PM EDT [facility] Alkaline Phosphatase, Plasma 110(H) 35 - 104 U/L 03/10/2025 12:20 PM EDT [facility] Total Bilirubin, Plasma 0.3 0.2 - 1.1 mg/dL 03/10/2025 12:20 PM EDT [facility] eGFRcr 137.4 mL/min/1.7 3m*2 03/10/2025 12:20 PM EDT [facility] Comment:Reported eGFRcr in m L/min/1.73m2 is based the CKD-EPI 2020 equation that does not use a race coefficient. Blood Venous blood specimen / Unknown Venipuncture / Unknown 03/10/2025 11:45 AM EDT 03/10/2025 11:55 AM EDT us Bre Maher MD LAB BLOOD ORDERABLES Final Result Performing Organization Address City/[facility]/ZIP Co de Phone Number [facility] [address] [place] [address] * EKG now - STAT (adult) (03/10/2025 11:31 AM EDT) EKG DIAGNOSIS CLASS Borderline Normal MUSE ECG Ventricular Rate 112 BPM MUSE ECG Atrial Rate 112 BPM MUSE ECG LA Interval 130 ms MUSE ECG QRSD Interval 70 ms MUSE ECG QT Interval 312 ms MUSE ECG QTC Interval 425 ms MUSE ECG P [place] 75 degrees MUSE ECG R [place] 88 degrees MUSE ECG T Wave [place] 31 degrees MUSE ECG Diagnosis Sinus tachycardia MUSE ECG Diagnosis Otherwise normal ECG MUSE ECG Diagnosis MUSE ECG Diagnosis Confirmed by Amador Lockhart ([id number]) on 03/10/2025 11:50:04 AM MUSE ECG 03/10/2025 11:3 1 AM EDT 03/10/2025 11:50 AM EDT us Radames Jane MD ECG ORDERABLES Final R esult Performing Organization Address City/State/[facility] Co de Phone Number MUSE ECG documented in this encounter Visit Diagnoses Diagnosis Pleural effusion- Primary Unspecified pleural effusion Pleural effusion Unspecified pleural effusion Empyema lung (CMS/HCC) Empyema without mention of fistula Spontaneous pneumothorax Other spontaneous pneumothorax Anemia Unspecified anemia Pleural effusion Unspecified pleural effusion Pleural effusion Unspecified pleural effusion documented in [...] Given 03/14/2025 9:37 PM EDT 1,000 mg bisacodyl (Dulcolax) suppository 10 mg 10 mg, Rectal, Daily PRN, Starting on Denice 03/11/25 at 1742, Until Sat03/15/25 at 1852, Routine, Recovery(Phase II-Outpatient)/On Unit(Inpatient), constipation Given 03/14/2025 8:02 AM EDT 10 mg Given 03/13/2025 9:28 PM EDT 10 mg enoxaparin (Lovenox) syringe 30 mg 30 mg, Subcutaneous, Daily, First dose on Sat03/12/25 at 1500, Until Discontinued, Routine Given 03/15/2025 8:05 AM EDT 30 mg Left Upper Arm (Back) Given 03/14/2025 8:03 AM EDT 30 mg Ri ght Upper Arm (Back) Given 03/13/2025 9:16 AM EDT 30 mg Ri ght Lower Abdomen HYDROmorphone (Dilaudid) injection 0.5 mg 0.5 mg, Intravenous, Every 2 hour PRN, Starting on Sat03/12/25 at 0824, Until Sat03/15/25 at 1852, Routine, severe pain refractory to oxycodone (7-10 on the numeric pain scale) Given 03/13/2025 4:13 PM EDT 0.5 mg Given 03/12/2025 10:12 PM EDT 0.5 mg Given 03/12/2025 2:20 PM EDT 0.5 mg ipratropium-albuterol (Duo-Neb) 0.5-2.5 mg/3 mL nebulizer solution 3 mL 3 mL, Nebulization, Every 6 hours RT, First dose (after last modification) on Sat03/13/25 at 1500, Until Discontinued, Routine, Recovery(Phase II-Outpatient)/On Unit(Inpatient) Given 03/15/2025 2:50 AM EDT 3 mL Given 03/14/2025 8:17 PM EDT 3 mL Given 03/14/2025 2:59 PM EDT 3 mL lidocaine (Lidoderm) 5 % patch 1 patch 1 patch, Apply externally, Daily, First dose on Denice 03/11/25 at 1830, Until Discontinued, Administer over 12 Hours, Routine Medication Applied 03/15/2025 8:05 AM EDT 1 patch Back Medication Applied 03/14/2025 8:04 AM EDT 1 patch Back Medication Applied 03/13/2025 9:15 AM EDT 1 patch Other methocarbamol (Robaxin) tablet 750 mg 750 mg, Oral, Every 6 hours scheduled, First dose (after last modification) on Sat03/12/25 at 1815, Until Discontinued, Routine, Recovery(Phase II-Outpatient)/On Unit(Inpatient) Given 03/15/2025 11:18 AM EDT 750 mg Given 03/15/2025 5:12 AM EDT 750 mg Given 03/14/2025 11:22 PM EDT 750 mg ondansetron (Zofran) injection 4 mg 4 [...] Given 03/13/2025 9:18 AM EDT 40 mg senna-docusate (Melina-Colace) 8.6-50 MG per tablet 2 tablet 2 tablet, Oral, 2 times daily, First dose on Sat03/11/25 at 2100, Until Discontinued, Routine, Recovery(Phase II-Outpatient)/On Unit(Inpatient) Given 03/15/2025 8:05 AM EDT 2 tablets Given 03/14/2025 8:02 AM EDT 2 tablets Given 03/13/2025 9:27 PM EDT 2 tablets documented in this encounter Active and Recently [...] Maradiaga RN) 0805 (Given - Provider: Carie Maradiaga RN) ipratropium-albuterol (Duo-Neb) 0.5-2.5 mg/3 mL nebulizer solution 3 mL (CANCELED) 3 mL, Nebulization, Every 4 hours scheduled, First dose on Denice 03/11/25 at 2000, Until Discontinued, Routine, Recovery(Phase II-Outpatient)/On Unit(Inpatient) 0324 (Given - Provider: Keena Moody)0812 (Given - Provider: Hamlet Cast) ipratropium-albuterol (Duo-Neb) 0.5-2.5 mg/3 mL nebulizer solution 3 mL 3 mL, Nebulization, Every 6 hours RT, First dose (after last modification) on [facility] 03/13/25 at 1500, Until Discontinued, Routine, Recovery(Phase [...] Shoulder)2049 (Medication Removed - Provider: Latoya Huitron) 08 (Medication Applied - Provider: Carie Maradiaga RN)2056 (Medication Removed - Provider: Latoya Huitron) 08 (Medication Applied - Provider: Carie Maradiaga RN)165 (Due: Medication Removed - Provider: Automatic Discharge [...] Latoya Huitron)1118 (Given - Provider: Carie Maradiaga RN)1800 (Canceled Entry - Provider: Automatic Discharge Provider - Comment: Automatically canceled at discontinue of medication order) pantoprazole (Protonix) EC tablet 40 mg 40 mg, Oral, Daily, First dose on Sat03/11/25 at 1830, Until Discontinued, Routine, Recovery(Phase II-Outpatient)/On Unit(Inpatient) 0918 (Given - Provider: Carie Maradiaga RN) 0804 (Given - Provider: Carie Maradiaga RN) 0805 (Given - Provider: Carie Maradiaga RN) potassium chloride CR (Klor-Con) ER tablet 40 mEq (COMPLETED) 40 mEq, Oral, Once, 1 dose, On Sat03/14/25 at 0730, Routine 0802 (Given - Provider: Carie Maradiaga, CARMELITA) senna-docusate (Melina-Colace) 8.6-50 MG per tablet 2 tablet 2 tablet, Oral, 2 times daily, First dose on Denice 03/11/25 at 2100, Until Discontinued, Routine, Recovery(Phase II-Outpatient)/On Unit(Inpatient) 0916 (Given - Provider: Carie Maradiaga RN)212 (Given - Provider: Latoya Huitron) 0802 (Given - Provider: Carie Maradiaga RN)213 (Not Given - Provider: Latoya Huitron - Reason: Patient/family refused) 0805 (Given - Provider: Carie Maradiaga RN) sodium chloride 0.9 % flush 10 mL (CANCELED)(Linked Group 1) 10 mL, Intravenous, Every 12 hours, First dose on Sat03/10/25 at 1525, Until Discontinued, Routine 0333 (Given - Provider: Latoya Huitron)1613 (Given - Provider: Carie Maradiaga, RN) 0323 (Given - Provider: Latoya Huitron)1530 (Given - Provider: Carie Maradiaga, CARMELITA) PRN Medication Order 03/13/2025 03/14/2025 03/15/2025 bisacodyl (Dulcolax) suppository 10 mg 10 mg, Rectal, Daily PRN, Starting on Denice 03/11/25 at 1742, Until Sat03/15/25 at 1852, [...] Provider: Latoya Huitron)0916 (Given - Provider: Carie Maradiaga RN)1303 (Given - Provider: Carie Maradiaga RN)1722 (Given - Provider: Carie Maradiaga RN)2126 (Given - Provider: Latoya Huitron) 0323 (Given - Provider: Latoya Huitron)0803 (Given - Provider: Carie Maradiaga RN)1210 (Given - Provider: Carie Maradiaga RN)172 (Given - Provider: Carie Maradiaga RN)2136 (Given - Provider: Latoya Huitron) 0512 (Given - Provider: Latoya Huitron)1118 (Given - Provider: Carie Maradiaga RN)1508 (Given - Provider: Carie Maradiaga RN) oxyCODONE (Roxicodone) immediate release tablet 5 mg(Linked Group 3) 5 mg, Oral, Every 4 hours PRN, Starting on Sat03/12/25 at 0633, Until 03/15/25 at 1852, Routine, Recovery(Phase II-Outpatient)/On Unit(Inpatient), moderate pain (4-6 on the numeric pain scale) 0519 (See Alternative - Provider: Latoya Huitron)0916 (See Alternative - Provider: Carie Maradiaga RN)1303 (See Alternative - Provider: Carie Maradiaga RN)1722 (See Alternative - Provider: Carie Maradiaga RN)2126 (See Alternative - Provider: Latoya Huitron) 0323 (See Alternative - Provider: Latoya Huitron)0803 (See Alternative - Provider: Carie Maradiaga RN)1210 (See Alternative - Provider: Carie Maradiaga RN)1723 (See Alternative - Provider: Carie Maradiaga RN)213 (See Alternative - Provider: Latoya Huitron) 0512 [...] documented as of this encounter Care Teams Health Lead Relationship Specialty Start Date End Date Pcp, [place] [address] PCP - General Family Medicine 02/16/25 documented as of this encounter
--- OUTSIDE RECORDS SUMMARY | 2025-03-11 15:23 | XMS_ITS | Encounter Summary ---
Author Organization Healthcare Address [address] [id number] Care Team Providers Care Sap Enterprise Portal Consultant Name Role Phone Pcp, No Primary Care Provider Unavailabl e Reason for Visit * Auth/Cert (Routine) Specialty Diagnoses / Procedures Referred By Conttao t Referred To Contact Diagnoses Empyema lung (CMS/HCC) Pleural effusion Kaylan Cao MD [address] [facility] [address] [place] [address] Phone: tel: fax: [facility] Inpatient [address] [place] [address] Phone: tel: Referral ID Status Reason Start Date Expiration Date Visits Re quested Visits Authorized [id number] 1 1 Encounter Details Date Type Department Care Team (Late st Contact Info) Description 03/11/2025 3:23 PM EDT Anesthesia Event [facility] [address] [place] [address] Ga Mcguire MD [address] [place] [address] Tania Barnes APRN [address] [place] [address] Anesthesia Record Procedure Summary Procedure Name Responsible Anesthesiologist Anesthesia Start Time Anesthesia Stop Time R VATS Decortication, Possible Pleurodesis (Right: Chest) Ga Mcguire MD 03/11/25 1523 03/11/25 1749 Events Date Time Event Comment 03/11/2025 1523 An Start The patient was reevaluated immediately before sedation and remains eligible for anesthesia plan. 1526 In Room 1526 An Start Data 1531 An Induction The patient was reevaluated immediately before moderate or deep sedation use and before anesthesia induction. 1533 An Intubation 1535 [place] Bronchoscopy fo r DL tube placement verification 1540 IV Placed Left hand 18 G PIV started 1542 Anesthesia Ready 1606 An one lung vent 1608 Proc Start 1706 An Two-Lung Vent 1724 Proc Fin 1739 An Extubation 1742 an stop data 1742 Out of Room 1749 Handoff to Receiving I compl eted my handoff to the receiving clinician during which we: 1. Identified the patient 2. Identified the responsible provider 3. Reviewed the pertinent medical history 4. Discussed the surgical course 5. Reviewed intra-op anesthesia management and issues during anesthesia 6. Set expectations for post-procedure period 7. Allowed opportunity for questions and acknowledgement of understanding. 1748 An Stop Meds Name Total midazolam (Versed) injection 1 mg/mL 5 m g propofol (Diprivan) injection 10 mg/mL 2 00 mg rocuronium (ZeMuron) injection 10 mg/mL 50 mg fentaNYL (Sublimaze) injection 50 mcg/mL 500 mcg lidocaine PF (Xylocaine-MPF) 2% 60 mg dexamethasone (Decadron) injection 4 mg/ mL 8 mg ondansetron (Zofran) injection 2 mg/mL 4 mg sugammadex (Bridion) injection 100 mg/mL 100 mg ceFAZolin (Ancef) injection 2 g 2 g sodium chloride 0.9 % infusion 300 mL * Agents Name O2 Sevoflurane * Blood No blood administrations on file. Lines, Drains, and Airways Type Details Placement Removal Wound 03/11/25; 1613; N; Y es; Surgical; Closed Surgi; Flank; Right, Outer 03/11/25 161 by Shahram Lopez, CARMELITA Chest Tube Placement Date: 02/23 06/18; Placement Time: 1709; Inserted by: Nash; Tube Number: 2; Orientation: Right; Size: 24 Fr 03/11/251708 by Shahram Lopez, CARMELITA Peripheral IV Placement Date: 02/23 05/19; Placement Time: 1146; Catheter Size: 20 G; Orientation: Right; Location: Antecubital; Site Prep: Chlorhexidine ; Technique: Anatomical landmarks; Inserted by: Gregory; Insertion Attempts: 1; Patient Tolerance: Tolerated well; Removal Date: 03/16/25; Removal Time: 165103/10/25 1146 by Tera Loza 03/16/25 165 by Discharge Provider, Automatic ETT Placement Date: 02/23 06/18; Placement Time: 1533 (created via procedure documentation); Mask Ventilation: 1; Technique: Direct laryngoscopy; Type: ETT - double lumen left; Double Lumen Tube Size: 37 Fr; Cuffed: Yes; Laryngoscope: Garcia; Blade Size: 2; Location: Oral; Grade View: Grade I; Insertion Attempts: 1; Placement Verification: Auscultation, Bronchoscopy, Capnometry, Single lung ventilation; Airway Comments: ASA monitors applied. Pt pre-oxygenated with 100% O2. Smooth IV induction. Atraumatic intubation. Lips and teeth same as pre-induction. DL tube placement verified with Bronchoscopy.; Placed by: JONNY; Removal Date: 03/11/25; Removal Time: 173803/11/25 1533 by Mirella Amos CRNA 03/11/25 173 by John León MD Urethral Catheter Placement Date: 02/23 06/18; Placement Time: 1600; Inserted by: John MAE; Type: Non-latex; Size: 16 Fr.; Balloon Size: 10 mL; Urine Returned: Yes; Removal Date: 03/11/25; Removal Time: 173; Removal Reason: Per protocol 03/11/25 1600 by Shahram Lopez RN 03/11/25 1734 by Shahram Lopez RN Peripheral IV Placement Date: 02/23 06/18; Placement Time: 1625 (created via procedure documentation); Catheter Size: 18 G; Orientation: Left; Location: Hand; Local Anesth: None; Technique: Anatomical landmarks; Inserted by: Mirella Amos CRNA; Insertion Attempts: 1; Removal Date: 03/16/25; Removal Time: 165103/11/25 1625 by Mirella Amos CRNA 03/16/25 165 by Discharge Provider, Automatic Chest Tube Placement Date: 02/23 06/18; Placement Time: 1708; Inserted by: Nash; Tube Number: 1; Orientation: Right; Size: 24 Fr; Removal Date: 03/14/25; Removal Time: 1030 03/11/25 1708 by Shahram Lopez RN 03/14/25 1030 by Carie Maradiaga, CARMELITA documented in this encounter Social History Tobacco [...] money to buy more. Never true 03/11/20 Within the past 12 months, t he [...] were you homeless or living in a jail (including now)? No 03/11/2025 Utilities Answer Date [...] on file documented as of this encounter Functional Status * Calculated C-SSRS [...] Ritter RN documented as of this encounter Miscellaneous Notes * Anesthesia Postprocedure Evaluation - John León MD - 03/11/2025 5:49 PM EDT Patient: Sarah Crane Anesthesia Type: general Vitals Value Taken Time BP 128/67 03/11/25 17:49 Temp 36.4 03/11/25 17:49 Pulse 116 03/11/25 17:48 Resp 29 03/11/25 17:48 SpO2 100 % 03/11/25 17:48 Vitals shown include unfiled device data. Anesthesia Post Evaluation Patient location during evaluation: PACU Patient participation: complete - patient participated Level of consciousness: awake Pain management: adequate (pain score 0-3) Airway patency: natural airway Cardiovascular status: acceptable and hemodynamically stable Respiratory status: acceptable, blow-by oxygen and face mask Hydration status: acceptable Nausea/Vomiting: No No notable events documented. Cosigned by Ga Mcguire MD at 03/12/2025 7:19 AM EDT Associated attestation - Ga Mcguire MD - 03/12/2025 7:19 AM EDT I agree with the findings and care plan documented in the postprocedure evaluation note. * Anesthesia Procedure Notes - Ga Mcguire MD - 03/11/2025 4:25 PM EDT Associated Order(s): Left Hand 18 G Peripheral IV Left Hand 18 G Peripheral IV Inserted by: Mirella Amos CRNA Placement Needle size: 18 G Location: hand Local anesthetic: none Site prep: alcohol Technique: anatomical landmarks Attempts: 1 * Anesthesia Procedure Notes - Mirella Amos CRNA - 03/11/2025 4:19 PM EDT Associated Order(s): Airway Airway Date/Time: 03/11/2025 3:33 PM Reason: elective Airway not difficult General Information and Staff Patient location during procedure: OR CLINICAL PSYCHOLOGIST PRIVATE PRACTICE: Mirella Amos CRNA Performed: JONNY Patient Condition Indications for airway management: anesthesia and airway protection Patient position: sniffing MILS maintained throughout Final Airway Details Final airway type: endotracheal airway Successful airway: ETT - double lumen left Cuffed: yes Successful intubation technique: direct laryngoscopy Adjuncts used in placement: intubating stylet Endotracheal tube insertion site: oral Blade: Garcia Blade size: #2 ETT DL size (fr): 37 Cormack-Lehane Classification: grade I - full view of glottis Placement verified by: chest auscultation, bronchoscopy, capnometry and single lung ventilation Measured from: lips Additional Comments ASA monitors applied. Pt pre-oxygenated with 100% O2. Smooth IV induction. Atraumatic intubation. Lips and teeth same as pre-induction. DL tube placement verified with Bronchoscopy. * Anesthesia Preprocedure Evaluation - Ga Mcguire MD - 03/11/2025 6:55 AM EDT Patient: Sarah Crane Procedure Information Date/Time: 03/11/25 1350 Procedure: R VATS Decortication, Possible Pleurodesis (Right) Location: [facility] 11 / [facility] Surgeons: Kaylan Cao MD HPI Sarah Crane is a 25 y.o. female with PMHx of spontaneous pneumothorax 3 weeks ago, for which she was admitted to an OSH for 5 days and a pigtail catheter was inserted and removed for management. CT today demonstrates moderate loculated right pleural effusion concerning for empyema. NPO STATUS: since MN Activity Level/METS: active, able to climb 2-3 flights stairs prior, chases after her toddler. Relevant Problems Respiratory (+) Pleural effusion SOCIAL HX Tobacco Use History[1] Social History Substance and Sexual Activity Alcohol Use None Social History Substance and Sexual Activity Drug Use Not on file SURGICAL HX Surgical History[2] ALLERGIES Allergies[3] MEDICATIONS Scheduled ampicillin-sulbactam, 3 g, Intravenous, q6h RICHARD heparin (porcine), 5,000 Units, Subcutaneous, q12h RICHARD [COMPLETED] Insert peripheral IV, , , Once AND [COMPLETED] Saline lock IV, , , Once AND sodium chloride, 10 mL, Intravenous, q12h AND sodium chloride, 10 mL, Intravenous, PRN LABS Labs in last 18 hours CBC WBC 9.63 Hb 9.5 (L) Plt 654 (H) Hct 29.0 (L) ANC ?? INR ??, PTT ??, Anti-Xa ?? BMP Na 135 (L) Cl 103 BUN 7 Glu 106 (H) K 4.0 Co2 24 Cr 0.50 (L) Ca 8.9 iCa ?? Mg 2.2, Phos 4.1 Lactate ?? LFT AST ?? AlkPhos ?? T Prot ?? ALK ?? Bili ?? Alb ?? D.Bili ?? EKG, ECHO, Cath, Imaging, PFTs EKG Encounter Date: 03/10/25 EKG now - STAT (adult) Result Value EKG DIAGNOSIS CLASS Borderline Normal Ventricular Rate 112 Atrial Rate 112 GA Interval 130 QRSD Interval 70 QT Interval 312 QTC Interval 425 P [place] 75 R [place] 88 T Wave [place] 31 Diagnosis Sinus tachycardia Diagnosis Otherwise normal ECG Diagnosis Diagnosis Confirmed by Amador Lockhart ([id number]) on 03/10/2025 11:50:04 AM *Note: Due to a large number of results and/or encounters for the requested time period, some results have not been displayed. A complete set of results can be found in Results Review. ECHO No echocardiogram results found for the past 12 months CXR 03/11 COMPARISON: 03/10/2025 FINDINGS: Moderate right pleural effusion is stable. No airspace disease in the aerated lungs. No pulmonary edema. No pneumothorax. Heart and mediastinal contours are within normal limits. IMPRESSION: Stable right effusion with associated basilar atelectasis. Body mass index is 17.86 kg/m??. Vitals: 03/11/25 0745 BP: 109/60 Pulse: 82 Resp: 18 Temp: 36.6 ??C (97.9 ??F) SpO2: 99% ROS Anesthesia: Date of last anesthetic: [place] teeth around 2018 and has had ketamine for prior chest tube otherwise no anesthesia. No GA. history of previous anesthesia. Does not have a history of anesthetic complications, motion sickness, obstructive sleep apnea and PONV. Cardiovascular: Negative cardio ROS. Patient's ECG reviewed. dysrhythmias (sinus tachy). Exercise tolerance is 3 flights of stairs. Respiratory: no asthma: Respiratory ROS additional comments: Pneumothorax Pleural effusion HEENT: Does not have loose teeth. Neurological: Negative neuro ROS. Autoimmune: Does not have rheumatoid arthritis. Gastrointestinal: Does not have GERD.Does not have end stage liver disease. Does not have obese. Genitourinary: Does not have chronic renal disease. Hematological/Lymphatic: anemia. History of no DVT. History of no pulmonary embolism. no history of chemotherapy no history of radiation Endocrine/Metabolic: does not have diabetes mellitus. Does not have thyroid disorder. Physical Exam Airway Mallampati: I Mouth opening: normal TM distance: >3 FB Neck ROM: full Cardiovascular Rhythm: regular Rate: normal Dental Pulmonary Breath sounds clear to auscultation Neurological Oriented: normal to time, normal to place and normal to person and oriented to person, place and time Skin Skin: warm and dry Musculoskeletal Extremities Other findings: Tongue ring Anesthesia Plan ASA 2 Plan was reviewed with: CLINICAL PSYCHOLOGIST PRIVATE PRACTICE Anesthesia technique(s) discussed with the patient/family: general Anesthesia plan agreed upon was: general Comment: Spontaneous pneumothorax on the right Previously healthy Anesthetic plan and risks discussed with patient. Use of blood products discussed with patient who consented to blood products. Additional Equipment Requests Scope: flexible bronchoscope and video laryngoscope Additional Equipment: ultrasound [1] Social History Tobacco Use Smoking Status Never Smokeless Tobacco Never [2] Past Surgical History: Procedure Laterality Date WISDOM TOOTH EXTRACTION [3] No Known Allergies documented in this encounter Plan of Treatment Not on file documented as of this encounter Procedures Procedure Name Priority Date/Time Associated Diagnosis Comments ANESTHESIA PERIPHERAL IV PLACEMENT Routine 03/11/2025 4:25 PM EDT PB ANESTHESIA PLACEHOLDER Routine 03/11/2025 3:33 PM EDT GA AN ELECTIVE ENDOTRACHEAL AIRWAY Routine 03/11/2025 3:33 PM EDT documented in this encounter Results * Left Hand 18 G Peripheral IV (03/11/2025 4:25 PM EDT) Narrative Ga Mcguire MD - 03/11/2025 4:25 PM EDT Ga Mcguire MD 03/12/2025 7:20 AM Left Hand 18 G Peripheral IV Inserted by: Mirella Amos CRNA Placement Needle size: 18 G Location: hand Local anesthetic: none Site prep: alcohol Technique: anatomical landmarks Attempts: 1 Ga Mcguire MD ANESTHESIA ORDERABLES Edite d Result - Final * GA AN ELECTIVE ENDOTRACHEAL AIRWAY, PB ANESTHESIA PLACEHOLDER (03/11/2025 3:33 PM EDT) Narrative Mirella Amos CRNA - 03/11/2025 3:33 PM EDT Mirella Amos CRNA 03/11/2025 4:31 PM Airway Date/Time: 03/11/2025 3:33 PM Reason: elective Airway not difficult General Information and Staff Patient location during procedure: OR CLINICAL PSYCHOLOGIST PRIVATE PRACTICE: Mirella Amos CRNA Performed: CLINICAL PSYCHOLOGIST PRIVATE PRACTICE Patient Condition Indications for airway management: anesthesia and airway protection Patient position: sniffing MILS maintained throughout Final Airway Details Final airway type: endotracheal airway Successful airway: ETT - double lumen left Cuffed: yes Successful intubation technique: direct laryngoscopy Adjuncts used in placement: intubating stylet Endotracheal tube insertion site: oral Blade: Garcia Blade size: #2 ETT DL size (fr): 37 Cormack-Lehane Classification: grade I - full view of glottis Placement verified by: chest auscultation, bronchoscopy, capnometry and single lung ventilation Measured from: lips Additional Comments ASA monitors applied. Pt pre-oxygenated with 100% O2. Smooth IV induction. Atraumatic intubation. Lips and teeth same as pre-induction. DL tube placement verified with Bronchoscopy. Ga Mcguire MD ANESTHESIA ORDERABLES Edite d Result - Final documented in this encounter Visit Diagnoses Not on filedocumented in this encounter Administered Medications Inactive Administered Medications - up to 3 most recent administrations Medication Order MAR Action Action Date Dose Rate Site ceFAZolin (Ancef) injection 2 g 2 g, Intravenous, Once, 1 dose, On Denice 03/11/25 at 1700, Routine, Anesthesia Intraprocedure Given 03/11/2025 4:03 PM EDT 2 g dexamethasone (Decadron) injection Intravenous, As needed, Starting on Denice 03/11/25 at 1548, Until Denice 03/11/25 at 1749, Routine, Anesthesia Intraprocedure Given 03/11/2025 3:48 PM EDT 8 mg fentaNYL (Sublimaze) injection Intravenous, As needed, Starting on Denice 03/11/25 at 1614, Until Denice 03/11/25 at 1749, Routine, Anesthesia Intraprocedure Given 03/11/2025 4:56 PM EDT 50 mcg Given 03/11/2025 4:40 PM EDT 100 mcg Given 03/11/2025 4:14 PM EDT 100 mcg lidocaine PF (Xylocaine) 2 % injection Intravenous, As needed, Starting on Denice 03/11/25 at 1531, Until Denice 03/11/25 at 1749, Routine, Anesthesia Intraprocedure Given 03/11/2025 3:31 PM EDT 60 mg midazolam (Versed) injection Intravenous, As needed, Starting on Denice 03/11/25 at 1531, Until Denice 03/11/25 at 1749, Routine, Anesthesia Intraprocedure Given 03/11/2025 3:31 PM EDT 2 mg Given 03/11/2025 3:23 PM EDT 3 mg ondansetron (Zofran) injection Intravenous, As needed, Starting on Denice 03/11/25 at 1721, Until Denice 03/11/25 at 1749, Routine, Anesthesia Intraprocedure Given 03/11/2025 5:21 PM EDT 4 mg propofol (Diprivan) injection Intravenous, As needed, Starting on Denice 03/11/25 at 1531, Until Denice 03/11/25 at 1749, Routine, Anesthesia Intraprocedure Given 03/11/2025 3:31 PM EDT 200 mg rocuronium (ZeMuron) injection Intravenous, As needed, Starting on Denice 03/11/25 at 1531, Until Denice 03/11/25 at 1749, Routine, Anesthesia Intraprocedure Given 03/11/2025 3:31 PM EDT 50 mg sodium chloride 0.9 % infusion Intravenous, Continuous PRN, Starting on Denice 03/11/25 at 1523, Until Denice 03/11/25 at 1749, Routine New Bag 03/11/2025 3:23 PM EDT sugammadex (Bridion) 100 MG/ML injection Intravenous, As needed, Starting on Denice 03/11/25 at 1727, Until Denice 03/11/25 at 1749, Routine, Anesthesia Intraprocedure Given 03/11/2025 5:27 PM EDT 100 mg documented in this encounter Additional Health Concerns Assessment Noted Time A fall risk assessment has been complete d for the patient 06/11/2022 10:47 AM EDT A Body Mass Index follow-up plan has been documented for the patient 03/15/2025 3:54 PM EDT documented as of this encounter Care Teams [employer] Portal Consultant Relationship Specialty Start Date End Date Pcp, [place] [address] PCP - General Family Medicine 02/16/25 documented as of this encounter
--- OUTSIDE RECORDS SUMMARY | 2025-03-30 10:00 | XMS_ITS | Encounter Summary ---
Author Organization Healthcare Address [address] [id number] Care Team Providers Care Multiskill Operator Name Role Phone Pcp, No Primary Care Provider Unavailabl e Encounter Details Date Type Department Care Team (Latest Contact Info) Description 03/30/2025 10:00 AM EDT - 03/30/2025 11:59 PM EDT Hospital Encounter [facility] Rad[facility] [address] [place] [address] Pleural effusion Discharge Disposition: Home or Self [...] any time in the past 12 m [facility], were you homeless or living in a senior care (including now)? No 03/11/2025 Utilities Answer Date [...] documented as of this encounter Care Teams Multiskill Operator Relationship Specialty Start Date End Date Pcp, Venessa [address] [place] [address] PCP - General Family Medicine 02/16/25 documented as of this encounter
--- OUTSIDE RECORDS SUMMARY | 2025-03-30 10:45 | XMS_ITS | Encounter Summary ---
Author Organization Healthcare Address [address] [id number] Care Team Providers Care Special Diet Cook Name Role Phone Pcp, No Primary Care Provider Unavailabl e Reason for Visit * Reason Comments Follow-up Encounter Details Date Type Department Care Team ([facility] Contact Info) Description 03/30/2025 10:45 AM EDT Office Visit Pav [facility] Head[facility] Neck & Respiratory [address] [place] [address] Kaylan Cao MD [address] [facility] [address] [place] [address] Pleural effusion (Primary Dx) Social History Tobacco [...] any time in the past 12 m [facility], were you homeless or living in a snf (including now)? No 03/11/2025 Utilities Answer Date [...] from the original note were not included. [facility] Department of Surgery Section of [...] documented as of this encounter Care Teams Special Diet Cook Relationship Specialty Start Date End Date Pcp, [place] [address] PCP - General Family Medicine 02/16/25 documented as of this encounter
--- OUTSIDE RECORDS SUMMARY | 2025-05-05 15:37 | XMS_ITS | Encounter Summary ---
Author Organization Healthcare Address [address] [id number] Care Team Providers Care Caramel Cutter Hand Name Role Phone Pcp, No Primary Care Provider Unavailabl e Encounter Details Date Type Department Care Team (Latest Contact Info) Description 03/15/2025 Travel Social History Tobacco Use Types Packs/Day Years [...] any time in the past 12 m [facility], were you homeless or living in a [place] [facility] (including now)? No 03/11/2025 Utilities Answer Date [...] on file documented as of this encounter Plan of Treatment Not on file documented as of this encounter Visit Diagnoses Not on filedocumented in this encounter Additional Health Concerns Assessment Noted Time A fall risk assessment has been complete d for the patient 06/11/2022 10:47 AM EDT A Body Mass Index follow-up plan has been documented for the patient 03/15/2025 3:54 PM EDT documented as of this encounter Care Teams Caramel Cutter Hand Relationship Specialty Start Date End Date Pcp, No [address] [place] [address] PCP - General Family Medicine 02/16/25 documented as of this encounter
--- OUTSIDE RECORDS SUMMARY | 2025-05-05 15:37 | XMS_ITS | Clinical Summary ---
Author Organization Healthcare Address [address] [id number] Care Team Providers Care Electroformer Name Role Phone Pcp, No Primary Care Provider Unavailabl e Allergies No known active allergies Medications etonogestrel-eluti ng contraceptive device 68 MG implant 1 each by Implant route 1 (one) time. Active acetaminophen (Tylenol) 500 MG tablet Take 2 tablets by mouth every 8 hours. 100 tablet 1 5 05/14/20 25 Active methocarbamol (Robaxin) 750 MG tablet Take 1 tablet by mouth 4 (four) times a day. 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 Empyema lung 03/11/2025 03/12/2025 Pleural effusion 03/10/2025 03/15/2025 Overview (03/12/2025): 03/11/2025: Bronchoscopy, right VATS decortication Pain control - no NSAIDs Monitor tube output Encounters Date Type Department Care Team Description 03/30/2025 10:45 AM EDT Office Visit [facility] [address] [place] [address] Kaylan Cao MD Pleural effusion (Primary Dx) 03/30/2025 10:00 AM EDT - 03/30/2025 11:59 PM EDT Hospital Encounter [facility] Radiology [address] [place], [place] [phone] Pleural effusion Discharge Disposition: Home or Self Care 03/30/2025 Travel 03/16/2025 Telephone [facility] [address] [facility]nd [place] [address] Kaylan Cao MD 03/16/2025 Telephone [facility] Inpatient [address] [place] [phone] Hannah Villeda 03/15/2025 Travel 03/14/2025 Travel 03/13/2025 Travel 03/12/2025 Travel 03/11/2025 3:23 PM EDT Anesthesia Event [facility] OPERATING ROOM [address] [place] [address] Ga Mcguire MD Benson, Cathryn M, TRANSIT [employer] POLICE OFFICER 03/11/2025 1:50 PM EDT - 03/11/2025 5:20 PM EDT Surgery [facility] [address] [place] [phone] Kaylan Cao MD R VATS Decortication, Possible Pleurodesis 03/11/2025 Travel 03/10/2025 11:46 AM EDT - 03/15/2025 4:52 PM EDT Hospital Encounter [facility] [address] [place] [phone] Edgar Lerner MD Owens, Susan E, MD Meyerson, Shari L, MD Pleural effusion (Primary Dx); Empyema lung (CMS/HCC) Discharge Disposition: Home or Self Care 03/10/2025 Travel from Last 3 Months Social History Tobacco Use Types Packs/Day Years [...] any time in the past 12 m [facility], were you homeless or living in a [facility] (including now)? No 03/11/2025 Utilities Answer Date Recorded In the past 12 months has e [employer], gas, oil, or water [employer] threatened to shut off services in your home? No 03/11/2025 Comments No Sex and Gender Information Value Date Recorded Sex Assigned at Not on file Legal Sex Female 8:08 PM EDT Gender Identity Not on file Sexual Orientation Not on file Last Filed Vital Signs Vital Sign Reading Time Taken Comments Blood Pressure 115/73 03/30/2025 11:36 AM EDT Pulse 78 03/30/2025 11:36 AM EDT Temperature 36.6 C (97.9 F) 03/15/2025 11:27 AM EDT Respiratory Rate 16 03/30/2025 11:36 AM EDT Oxygen Saturation 100% 03/30/2025 11:36 AM EDT Inhaled Oxygen Concentration - - Weight 50.4 kg (111 lb 1.8 oz) 03/30/2025 11:36 AM EDT Height 162.6 cm (5' 4 ) 03/10/2025 7:38 PM EDT Body Mass Index 19.07 03/10/2025 7:38 PM EDT Plan of Treatment Health Maintenance Due Date Last Done Comments [facility]-Depression Screening 2002 [facility]-Infant/Child/Adol SDOH Screenings 2002 [facility]-IPV Vaccines (2 of 3 - 4-dose series) 04/08/2007 03/11/2007, 2002, 2002, Additional history exists [facility]-Pneumococcal Vaccine: Pediatrics (0 to 5 Years) and At-Risk Patients (6 to 49 Years) (1 of 2 - PCV) 2021 [facility]-Pap Smear 2023 [id number] Vaccine (2 - season) 2024 12/02/2021 [facility]-Influenza Vaccine (Season Ended) 2025 12/02/2021, 09/04/2019, 09/30/2018 [facility]- SDOH Screenings 09/10/2025 [facility]-Adult SDOH Screenings 09/10/2025 03/11/2025 [facility]-DTaP,Tdap,and Td Vaccines (8 - Td or Tdap) 05/22/2033 05/22/2023, 04/10/2013, 03/11/2007, Additional history exists [facility]-Zoster Vaccines (1 of 2) 2052 04/10/2013, 03/09/2003 [facility]-Hepatitis B Vaccines Completed 002, 2002, 2002 [facility]-HIB Vaccines Completed 03/09/2003, , 2002, Additional history exists [facility]-Varicella Vaccines Completed 04/10/2013, 2002 HPV Vaccines Completed 02/26/2019, 110 04/2018, 06/19/2018 [facility]-Hepatitis A Vaccines Completed 02/26/2019, 05/26 [facility]-HIV Screening Completed 03/10/2025 [facility]-Hepatitis C Screening Completed 03/10/2025 [facility]-Rotavirus Vaccines Aged Out No lo nger eligible based on patient's age to complete this topic Procedures Procedure Name Priority Date/Time Associated Diagnosis Comments XR CHEST 2 VIEWS Routine 03/30/2025 11:26 AM EDT Pleural effusion XR CHEST 1 VIEW Timed 03/15/2025 12:22 PM EDT XR CHEST 1 VIEW Routine 03/15/2025 4:25 AM EDT XR CHEST 1 VIEW Routine 03/14/2025 2:14 PM EDT XR CHEST 1 VIEW Routine 03/14/2025 3:33 AM EDT RENAL FUNCTION PANEL, PLASMA Pending Discharge 03/14/2025 3:26 AM EDT MAGNESIUM, PLASMA Pending Discharge 03/14/2025 3:26 AM EDT CBC W/O DIFFERENTIAL Pending Discharge 03/14/2025 3:26 AM EDT OXYGEN THERAPY Routine 03/13/2025 8:00 PM EDT XR CHEST 1 VIEW Timed 03/13/2025 4:23 PM EDT OXYGEN THERAPY Routine 03/13/2025 8:00 AM EDT RENAL FUNCTION PANEL, PLASMA Routine 03/13/2025 3:33 AM EDT MAGNESIUM, PLASMA Routine 03/13/2025 3:33 AM EDT CBC W/O DIFFERENTIAL Routine 03/13/2025 3:33 AM EDT XR CHEST 1 VIEW Routine 03/13/2025 1:33 AM EDT OXYGEN THERAPY Routine 03/12/2025 8:00 PM EDT OXYGEN THERAPY Routine 03/12/2025 8:00 AM EDT RENAL FUNCTION PANEL, PLASMA Routine 03/12/2025 3:23 AM EDT MAGNESIUM, PLASMA Routine 03/12/2025 3:2 3 AM EDT CBC W/O DIFFERENTIAL Routine 03/12/2025 3:23 AM EDT XR CHEST [...] Routine 03/11/2025 4:57 PM EDT Pleural effusion ANESTHESIA PERIPHERAL IV PLACEMENT Routine 03/11/2025 4:25 PM EDT PB ANESTHESIA PLACEHOLDER Routine 03/11/2025 3:33 PM EDT MI AN ELECTIVE ENDOTRACHEAL AIRWAY Routine 03/11/2025 3:33 PM EDT DECORTICATION, LUNG, THORACOSCOPIC 03/11/2025 3:16 PM EDT Pleural effusion POCT , URINE Routine 03/11/2025 3:00 PM EDT PREPARE RBC Routine 03/11/2025 2:23 PM EDT XR CHEST 1 VIEW Routine 03/11/2025 4:22 AM EDT RENAL FUNCTION PANEL, PLASMA Routine 03/11/2025 3:51 AM EDT MAGNESIUM, PLASMA Routine 03/11/2025 3:5 1 AM EDT CBC W/O DIFFERENTIAL Routine 03/11/2025 3:51 AM EDT TYPE AND [...] ECG ADULT STAT 03/10/2025 11:31 AM EDT from Last 3 Months Results * XR Chest 2 Views (03/30/2025 [...] Chest 1 View (03/15/2025 12:22 PM EDT) Only the most recent of10 resultswithin the time period is included. Anatomical Region Laterality Modality Chest Digital Radiogra [...] COMPARISON: Same date at 0418 hours FINDINGS: Kuaxv-[id number]-scqettyn left-sided pneumothorax without change. Small right-sided pleural effusion, stable. Mild right infrahilar opacities are similar to the prior. No left-sided pleural effusion or pneumothorax. No left-sided airspace disease. Procedure Note Ashleigh Samayoa MD - 03/15/2025 CLINICAL INDICATION: S/p chest tube removal TECHNIQUE: XR CHEST 1 VIEW COMPARISON: Same date at 0418 hours FINDINGS: Tqewt-xh-iunuglmv left-sided pneumothorax without change. Smallright-sided pleural effusion, stable. Mild right infrahilar opacities aresimilar to the prior. No left-sided pleural effusion or pneumothorax. Noleft-sided airspace disease. IMPRESSION: Stable right-sided hydropneumothorax. CRITICAL RESULT: No. COMMUNICATION: Per this written report. Drafted by Ashleigh Samayoa MD on 03/15/2025 12:31 PM Final report signed by Ashleigh Samayoa MD on 03/15/2025 12:32 PM Jordon Orona [employer]ICE OFFICER IMG XR PROCEDURES Final Res ult * (ABNORMAL) CBC W/O Differential (03/14/2025 3:26 AM EDT) Only the most recent of4 resultswithin the time period is included. WBC Count 10.78(H) 3.70 - 10.30 10*3/uL LAB HEMATOLOGY METHOD 03/14/2025 3:55 AM EDT [facility] RBC Count 3.49(L) 3.90 - 5.20 10*6/uL LAB HEMATOLOGY METHOD 03/14/2025 3:55 AM EDT [facility] HGB 10.2(L) 11.2 - 15.7 g/dL LAB HEMATOLOGY METHOD 03/14/2025 3:55 AM EDT [facility] HCT 32.9(L) 34.0 - 45.0 % LAB HEMATOLOGY METHOD 03/14/2025 3:55 AM EDT [facility] Platelet Count 668(H) 155 - 369 10*3/uL LAB HEMATOLOGY METHOD 03/14/2025 3:55 AM EDT [facility] MCV 94 79 - 98 fL LAB HEMATOLOGY METHOD 03/14/2025 3:55 AM EDT [facility] MCH 29.2 26.0 - 32.0 pg LAB HEMATOLOGY METHOD 03/14/2025 3:55 AM EDT [facility] MCHC 31.0 30.7 - 35.5 g/dL LAB HEMATOLOGY METHOD 03/14/2025 3:55 AM EDT [facility] RDW 12.5 11.5 - 14.5 % LAB HEMATOLOGY METHOD 03/14/2025 3:55 AM EDT [facility] MPV 8.8 8.8 - 12.5 fL LAB HEMATOLOGY METHOD 03/14/2025 3:55 AM EDT [facility] nRBC 0.0 <=0.0 per 100 WBCs LAB HEMATOLOGY METHOD 03/14/2025 3:55 AM EDT [facility] Blood Venous blood specimen / Unknown Venipuncture / Unknown 03/14/2025 3:26 AM EDT 03/14/2025 3:48 AM EDT us Kaylan Cao MD LAB BLOOD ORDERABLES Final R esult [facility] [address] [place] [address] * Magnesium (03/14/2025 3:26 AM EDT) Only the most recent of4 resultswithin the time period is included. Magnesium, Plasma 1.9 1.9 - 2.4 mg/dL 03/14/2025 4:24 AM EDT [facility] Blood Venous blood specimen / Unknown Venipuncture / Unknown 03/14/2025 3:26 AM EDT 03/14/2025 3:48 AM EDT us Kaylan Cao MD LAB BLOOD ORDERABLES Final R esult [facility] [address] [place] [address] * (ABNORMAL) Renal function panel (03/14/2025 3:26 AM EDT) Only the most recent of4 resultswithin the time period is included. Glucose, Plasma 116(H) 74 - 99 mg/dL 03/14/2025 4:24 AM EDT [facility] BUN, Plasma 8 7 - 21 mg/dL 03/14/2025 4:24 AM EDT [facility] Creatinine, Plasma 0.49(L) 0.60 - 1.10 mg/dL 03/14/2025 4:24 AM EDT [facility] BUN/Creatinine Ratio 16 03/14/2025 4:24 AM EDT [facility] Sodium, Plasma 137 136 - 145 mmol/L 03/14/2025 4:24 AM EDT [facility] Potassium, Plasma 3.6 3.6 - 4.9 mmol/L 03/14/2025 4:24 AM EDT [facility] Chloride, Plasma 102 97 - 107 mmol/L 03/14/2025 4:24 AM EDT [facility] CO2, Plasma 28 22 - 29 mmol/L 03/14/2025 4:24 AM EDT [facility] Anion Gap 7 6 - 16 mmol/L 03/14/2025 4:24 AM EDT [facility] Total Calcium, Plasma 8.9 8.9 - 10.2 mg/dL 03/14/2025 4:24 AM EDT [facility] Phosphorus, Plasma 4.7(H) 2.5 - 4.5 mg/dL 03/14/2025 4:24 AM EDT [facility] Albumin, Plasma 3.1(L) 3.5 - 5.2 g/dL 03/14/2025 4:24 AM EDT [facility] eGFRcr 136.0 mL/min/1.7 3m*2 03/14/2025 4:24 AM EDT [facility] Comment:Reported eGFRcr in m L/min/1.73m2 is based the CKD-EPI 2020 equation that does not use a race coefficient. Blood Venous blood specimen / Unknown Venipuncture / Unknown 03/14/2025 3:26 AM EDT 03/14/2025 3:48 AM EDT Kaylan Cao MD LAB BLOOD ORDERABLES Final R esult [facility] [address] [place] [address] * (ABNORMAL) Body Fluid Culture and Gram Stain (03/11/2025 5:21 PM EDT) Culture Light Growth 03/14/2025 7:03 AM EDT [facility] Culture Staphylococcus epidermidis(A) SELENE 03/14/2025 7:03 AM EDT [facility] Comment: This isolate has been identified using the FDA Approved VHXyper CA System The organism value for this result has been updated. These results have been appended to the previously preliminary verified report. Gram Stain Result Few Polymorphonuclear leukocytes 03/14/2025 7:03 AM EDT [facility] Gram Stain Result No organisms seen 03/14/2025 7:03 AM EDT [facility] Body Fluid Structure of right [...] Staphylococcus epidermidis Vancomycin SELENE 2 ug/ml: Susceptible Kaylan Cao MD LAB MICROBIOLOGY - GENERAL O RDERABLES Final Result Performing Organization Address [facility] Co de Phone Number [facility] [address] [place] [address] * Surgical Pathology Exam (03/11/2025 4:57 PM EDT) Case Report Surgical Pathology Case: [id number] Authorizing Provider: Kaylan Cao MD Collected: 03/11/2025 1657 Ordering Location: [facility] OPERATING ROOM Received: 03/12/2025 0813 Pathologist: Goyo Haque MD Specimen: Other (specify site), Right Pleural Biopsy 03/16/2025 11:09 AM EDT [facility] Final Diagnosis A. RIGHT PLEURAL, BIOPSY: - GRANULATION TISSUE, INFLAMMATION WITH PIGMENT LADEN MACROPHAGES AND REACTIVE CHANGES ( CLINICAL HISTORY OF EMPYEMA WITH PNEUMOTHORAX) 03/16/2025 11:09 AM EDT [facility] at 1108 EDT Clinical Information Pleural effusion [J90] 03/16/2025 11:09 AM EDT [facility] Gross Description A. RIGHT PLEURAL BIOPSY Received in formalin labeled right pleura biopsy , are 3 pink-red soft tissue fragments that range from 0.7-1.2 cm in greatest dimension. Entirely submitted in cassette A1. Cold Time: 15h 16m Cristel Prado 03/16/2025 11:09 AM EDT [facility] Note: A resident was involved in the service. I attest I examined the relevant preparations for the specimens and confirmed the diagnosis or interpretation. 03/16/2025 11:09 AM EDT [facility] Tissue Topography unknown / Unknown 03/11/2025 4:57 PM EDT 03/12/2025 8:13 AM EDT Comment:Pre-op diagnosis: Pleural effusion [J90] us Kaylan Cao MD LAB PATHOLOGY ORDERABLES Fin al Result Performing Organization Address [facility]/ZIP Co de Phone Number [facility] [address] [place] [address] * Left Hand 18 G Peripheral IV (03/11/2025 4:25 PM EDT) Ga Carpenter MD - 03/11/2025 4:25 PM EDT Ga Mcguire MD 03/12/2025 7:20 AM Left Hand 18 G Peripheral IV Inserted by: Mirella Amos CRNA Placement Needle size: 18 G Location: hand Local anesthetic: none Site prep: alcohol Technique: anatomical landmarks Attempts: 1 us Ga Mcguire MD ANESTHESIA ORDERABLES Edite d Result - Final * MI AN ELECTIVE ENDOTRACHEAL AIRWAY, PB ANESTHESIA PLACEHOLDER (03/11/2025 3:33 PM EDT) Mirella Weathers CRNA - 03/11/2025 3:33 PM EDT Mirella Amos CRNA 03/11/2025 4:31 PM Airway Date/Time: 03/11/2025 3:33 PM Reason: elective Airway not difficult General Information and Staff Patient location during procedure: OR WELL DRILL OPERATOR ROTARY DRILL: Mirella Amos CRNA Performed: JONNY Patient Condition [...] pre-induction. DL tube placement verified with Bronchoscopy. us Ga Mcguire MD ANESTHESIA ORDERABLES Edite d Result - Final * POCT , URINE (03/11/2025 3:00 PM EDT) POCT Test, Urine Negative Males and Non- Females: Negative 03/11/2025 3:06 PM EDT [facility] Expediter Clerk ID SaulLinnea Devan 03/11/2025 3:06 PM EDT [facility] LAB Device ID [id number] 03/11/2025 3:06 PM EDT [facility] Urine Urine specimen obtained by clean catch procedure / Unknown 03/11/2025 3:00 PM EDT 03/11/2025 3:06 PM EDT us Kaylan Cao MD LAB POINT OF CARE TE ST DOCKED DEVICE UNSOLICITED RESULTS Final Result Performing Organization Address [facility] de Phone Number [facility] [address] [place] [address] * Type and screen (03/10/2025 4:28 PM [...] ORDERABL ES Final Result Performing Organization Address [facility] Phone Number BLOOD BANK [address] [place] [address], [place] * CT Chest w IV Contrast [...] Horvath MD on 03/10/2025 2:43 PM us Tera Maher MD IMG CT PROCEDURES Final Res ult * Blood Culture (Aerobic/Anaerobet Set) (03/10/2025 12:21 PM EDT) Pathologist [facility] Culture No growth at day 5 03/15/2025 2:02 PM EDT [facility] Blood Structure of antecubital vein / Unknown Venipuncture / Unknown 03/10/2025 12:21 PM EDT 03/10/2025 12:35 PM EDT Narrative [facility] - 03/15/2025 2:02 PM EDT Low blood volume submitted, results may be compromised us Edgar Lerner MD LAB MICROBIOLOGY - GENE RAL ORDERABLES Final Result [facility] [address] [place] [address] * ED HIV 1/2 Antibody/Antigen Screen w/Reflex to HIV 1/2 Differentiation (03/10/2025 11:45 AM EDT) HIV 1 & 2 Antibody/Antigen Screen Non Reactive Non Reactive 03/10/2025 12:55 PM EDT [facility] Comment:Screening for HIV 1 & 2 antibodies, and P24 antigen is NONREACTIVE. No confirmatory testing is required. Blood Venous blood specimen / Unknown Venipuncture / Unknown 03/10/2025 11:45 AM EDT 03/10/2025 12:05 PM EDT Tera Maher MD LAB BLOOD ORDERABLES Final Result Performing Organization Address [facility]/ZIP Co de Phone Number [facility] [address] [place] [address] * Hepatitis C Antibody - ED (03/10/2025 11:45 AM EDT) Hepatitis C Antibody Negative Negative 03/10/2025 12:57 PM EDT [facility] Blood Venous blood specimen / Unknown Venipuncture / Unknown 03/10/2025 11:45 AM EDT 03/10/2025 12:05 PM EDT Tera Maher MD LAB BLOOD ORDERABLES Final Result Performing Organization Address City/[facility] Co de Phone Number [facility] [address] [place] [address] * (ABNORMAL) PT-INR (03/10/2025 11:45 AM EDT) Pathologist [facility] Prothrombin Time 15.0(H) 12.0 - 14.3 sec 03/10/2025 12:13 PM EDT [facility] INR 1.2(H) 0.9 - 1.1 03/10/2025 12:13 PM EDT [facility] Blood Venous blood specimen / Unknown Venipuncture / Unknown 03/10/2025 11:45 AM EDT 03/10/2025 11:55 AM EDT Narrative [facility] - 03/10/2025 12:13 PM EDT OPTIMAL INR RANGES FOR PATIENT ON ORAL ANTICOAGULANT THERAPY Prevention of venous thromboembolism INR 2.0 to 3.0 In patients with heart disease: Atrial fibrillation INR 2.0 to 3.0 Valvular heart disease INR 2.0 to 3.0 Tissue heart valves INR 2.0 to 3.0 Mechanical prosthetic valves INR 2.5 to 3.5 Prevention of recurrent UT INR 2.5 to 3.5 us Tera Maher MD LAB BLOOD ORDERABLES Final Result [facility] [address] [place] [address] * (ABNORMAL) CBC w/diff (03/10/2025 11:45 AM EDT) WBC Count 13.18(H) 3.70 - 10.30 10*3/uL LAB HEMATOLOGY METHOD 03/10/2025 12:26 PM EDT [facility] RBC Count 3.43(L) 3.90 - 5.20 10*6/uL LAB HEMATOLOGY METHOD 03/10/2025 12:26 PM EDT [facility] HGB 10.3(L) 11.2 - 15.7 g/dL LAB HEMATOLOGY METHOD 03/10/2025 12:26 PM EDT [facility] HCT 31.6(L) 34.0 - 45.0 % LAB HEMATOLOGY METHOD 03/10/2025 12:26 PM EDT [facility] Platelet Count 845(H) 155 - 369 10*3/uL LAB HEMATOLOGY METHOD 03/10/2025 12:26 PM EDT [facility] MCV 92 79 - 98 fL LAB HEMATOLOGY METHOD 03/10/2025 12:26 PM EDT [facility] MCH 30.0 26.0 - 32.0 pg LAB HEMATOLOGY METHOD 03/10/2025 12:26 PM EDT [facility] MCHC 32.6 30.7 - 35.5 g/dL LAB HEMATOLOGY METHOD 03/10/2025 12:26 PM EDT [facility] RDW 11.9 11.5 - 14.5 % LAB HEMATOLOGY METHOD 03/10/2025 12:26 PM EDT [facility] MPV 9.1 8.8 - 12.5 fL LAB HEMATOLOGY METHOD 03/10/2025 12:26 PM EDT [facility] nRBC 0.0 <=0.0 per 100 WBCs LAB HEMATOLOGY METHOD 03/10/2025 12:26 PM EDT [facility] Differential Type Automated LAB HEMATOLOGY METHOD 03/10/2025 12:26 PM EDT [facility] Neutrophils % 76 % LAB HEMATOLOGY METHOD 03/10/2025 12:26 PM EDT [facility] Lymphocytes % 14 % LAB HEMATOLOGY METHOD 03/10/2025 12:26 PM EDT [facility] Monocytes % 7 % LAB HEMATOLOGY METHOD 03/10/2025 12:26 PM EDT [facility] Eosinophils % 1 % LAB HEMATOLOGY METHOD 03/10/2025 12:26 PM EDT [facility] Basophils % 1 % LAB HEMATOLOGY METHOD 03/10/2025 12:26 PM EDT [facility] Immature Granulocytes % 1 % LAB HEMATOLOGY METHOD 03/10/2025 12:26 PM EDT [facility] Neutrophils Absolute 10.12(H) 1.60 - 6.10 10*3/uL LAB HEMATOLOGY METHOD 03/10/2025 12:26 PM EDT [facility] Lymphocytes Absolute 1.87 1.20 - 3.90 10*3/uL LAB HEMATOLOGY METHOD 03/10/2025 12:26 PM EDT [facility] Monocytes Absolute 0.95(H) 0.30 - 0.90 10*3/uL LAB HEMATOLOGY METHOD 03/10/2025 12:26 PM EDT [facility] Eosinophils Absolute 0.07 0.00 - 0.50 10*3/uL LAB HEMATOLOGY METHOD 03/10/2025 12:26 PM EDT [facility] Basophils Absolute 0.09 0.00 - 0.10 10*3/uL LAB HEMATOLOGY METHOD 03/10/2025 12:26 PM EDT [facility] Immature Granulocytes Absolute 0.08(H) 0.00 - 0.06 10*3/uL LAB HEMATOLOGY METHOD 03/10/2025 12:26 PM EDT [facility] Blood Venous blood specimen / Unknown Venipuncture / Unknown 03/10/2025 11:45 AM EDT 03/10/2025 11:55 AM EDT [facility] - 03/10/2025 12:26 PM EDT Therapeutic decision making should be based on absolute values, rather than percentages. us Tera Maher MD LAB BLOOD ORDERABLES Final Result [facility] [address] [place] [address] * (ABNORMAL) CMP (03/10/2025 11:45 AM EDT) Glucose, Plasma 111(H) 74 - 99 mg/dL 03/10/2025 12:20 PM EDT [facility] BUN, Plasma 10 7 - 21 mg/dL 03/10/2025 12:20 PM EDT [facility] Creatinine, Plasma 0.47(L) 0.60 - 1.10 mg/dL 03/10/2025 12:20 PM EDT [facility] BUN/Creatinine Ratio 21 03/10/2025 12:20 PM EDT [facility] Sodium, Plasma 136 136 - 145 mmol/L 03/10/2025 12:20 PM EDT [facility] Potassium, Plasma 4.1 3.6 - 4.9 mmol/L 03/10/2025 12:20 PM EDT [facility] Chloride, Plasma 99 97 - 107 mmol/L 03/10/2025 12:20 PM EDT [facility] CO2, Plasma 26 22 - 29 mmol/L 03/10/2025 12:20 PM EDT [facility] Anion Gap 11 6 - 16 mmol/L 03/10/2025 12:20 PM EDT [facility] Total Calcium, Plasma 9.4 8.9 - 10.2 mg/dL 03/10/2025 12:20 PM EDT [facility] Total Protein 7.9 6.3 - 7.9 g/dL 03/10/2025 12:20 PM EDT [facility] Albumin, Plasma 3.5 3.5 - 5.2 g/dL 03/10/2025 12:20 PM EDT [facility] AST, Plasma 31 10 - 35 U/L 03/10/2025 12:20 PM EDT [facility] ALT, Plasma 46(H) 10 - 35 U/L 03/10/2025 12:20 PM EDT [facility] Alkaline Phosphatase, Plasma 110(H) 35 - 104 U/L 03/10/2025 12:20 PM EDT [facility] Total Bilirubin, Plasma 0.3 0.2 - 1.1 mg/dL 03/10/2025 12:20 PM EDT [facility] eGFRcr 137.4 mL/min/1.7 3m*2 03/10/2025 12:20 PM EDT [facility] Comment:Reported eGFRcr in m L/min/1.73m2 is based the CKD-EPI 2020 equation that does not use a race coefficient. Blood Venous blood specimen / Unknown Venipuncture / Unknown 03/10/2025 11:45 AM EDT 03/10/2025 11:55 AM EDT us Tera Maher MD LAB BLOOD ORDERABLES Final Result [facility] [address] [place] [address] * EKG now - STAT (adult) (03/10/2025 11:31 AM EDT) EKG DIAGNOSIS CLASS Borderline Normal MUSE ECG Ventricular Rate 112 BPM MUSE ECG Atrial Rate 112 BPM MUSE ECG MI Interval 130 ms MUSE ECG QRSD Interval 70 ms MUSE ECG QT Interval 312 ms MUSE ECG QTC Interval 425 ms MUSE ECG P [place] 75 degrees MUSE ECG R [place] 88 degrees MUSE ECG T Wave [place] 31 degrees MUSE ECG Diagnosis Sinus tachycardia MUSE ECG Diagnosis Otherwise normal ECG MUSE ECG Diagnosis MUSE ECG Diagnosis Confirmed by Amador Lockhart ([id number]) on 03/10/2025 11:50:04 AM MUSE ECG 03/10/2025 11:3 1 AM EDT 03/10/2025 11:50 AM EDT us Edgar Lerner MD ECG ORDERABLES Final R esult MUSE ECG from Last 3 Months Insurance ANTHEM Advance Directives * Full Code (Latest Code Status on File) Date Activated Date Inactivated Comments 03/11/2025 5:37 PM 03/15/2025 6:52 PM Question Answer Comments Patient has decision-making capacity? Yes * Full Code Date Activated Date Inactivated Comments 03/10/2025 3:23 PM 03/11/2025 5:37 PM Question Answer Comments I have reviewed the capacity from the link above and, if needed, have updated to appropriate status: No Care Teams Electroformer Relationship Specialty Start Date End Date Pcp, Venessa [address] [place] [address] PCP - General Family Medicine 02/16/25
--- OUTSIDE RECORDS SUMMARY | 2025-05-05 15:37 | XMS_ITS | Encounter Summary ---
Author Organization Healthcare Address [address] [id number] Care Team Providers Care Production Painter Name Role Phone Pcp, No Primary Care Provider Unavailabl e Encounter Details Date Type Department Care Team (Late st Contact Info) Description 03/16/2025 Telephone Pav CC Head, Neck & Respiratory [address] [place] [phone] Kaylan Cao MD [address] [facility] [address] [place] [address] Social History Tobacco Use Types Packs/Day Years [...] any time in the past 12 m [facility], were you homeless or living in a correction (including now)? No 03/11/2025 Utilities Answer Date [...] on file documented as of this encounter Miscellaneous Notes * Telephone Encounter - Brianna Edmond RN - 03/17/2025 9:29 AM EDT RN informed pt to consult with PCP or receiving lead. Pt verbalized understanding and agreeable toplan. * Telephone Encounter - Brianna Edmond RN - 03/17/2025 9:19 AM EDT RN spoke to pt. Pt denies headache, jaw pain, any sided weakness. Pt states eye was irritated whilein the hospital and a little swollen, but attributed that to tape during surgery. Pt states she noticed pupil changes yesterday. * Telephone Encounter - Giuliana Carpenter - 03/16/2025 4:36 PM EDT Patient Phone Message Reason for Call:Patient has some questions that she need answered. She is having some symptoms likeher pupil being different sizes. Best contact number and optimal time of day to reach caller:[phone] Note: Please do not reply to this message. Follow-up communication and further actions as a result of this message need to be communicated with the patient directly, if the patient is not active onMyChart. If the patient is active on MyChart, they will receive notification of the communication/outcome via [employer]. documented in this encounter Plan of Treatment [...] documented as of this encounter Care Teams Production Painter Relationship Specialty Start Date End Date Pcp, [place] [address] PCP - General Family Medicine 02/16/25 documented as of this encounter
--- OUTSIDE RECORDS SUMMARY | 2025-05-05 15:37 | XMS_ITS | Encounter Summary ---
Author Organization Healthcare Address [address] [id number] Care Team Providers Care School Bus Driver Name Role Phone Pcp, No Primary Care Provider Unavailabl e Encounter Details Date Type Department Care Team (Latest Contact Info) Description 03/30/2025 Travel Social History Tobacco Use Types Packs/Day [...] time in the past 12 m [facility], were you homeless or living in [...] documented as of this encounter Care Teams School Bus Driver Relationship Specialty Start Date End Date Pcp, No [address] [place] [address] PCP - General Family Medicine 02/16/25 documented as of this encounter
--- OUTSIDE RECORDS SUMMARY | 2025-05-05 15:37 | XMS_ITS | Encounter Summary ---
Author Organization Healthcare Address [address] [id number] Care Team Providers Care Interventional Sale Consultant Name Role Phone Pcp, No Primary Care Provider Unavailabl e Encounter Details Date Type Department Care Team (Late st Contact Info) Description 03/16/2025 Telephone PAV A Inpatient [address] [place] [phone] Hannah Villeda CV TELE-PROGRESSIVE Social History Tobacco Use Types Packs/Day Years [...] in the past 12 m [facility], were you homeless or living in a detention (including now)? No 03/11/2025 Utilities Answer Date [...] documented as of this encounter Care Teams Interventional Sale Consultant Relationship Specialty Start Date End Date Pcp, No [address] [place] [address] PCP - General Family Medicine 02/16/25 documented as of this encounter
--- OUTSIDE RECORDS SUMMARY | 2025-05-05 15:37 | XMS_ITS | Encounter Summary ---
Author Organization Healthcare Address [address] [id number] Care Team Providers Care Assistant Service Manager Name Role Phone Pcp, No Primary Care Provider Unavailabl e Encounter Details Date Type Department Care Team (Latest Contact Info) Description 03/10/2025 Travel Social History Tobacco Use Types Packs/Day [...] any time in the past 12 m [facility], were you homeless or living in a long-term (including now)? No 03/11/2025 Utilities Answer Date Recorded In the past 12 months has th e electric, gas, oil, or water company threatened to shut off services in your home? No 03/11/2025 Comments Unknown Sex and Gender Information Value Date Recorded Sex Assigned at Not on file Legal Sex Female 8:08 PM EDT Gender Identity Not on file Sexual Orientation Not on file documented as of this encounter Functional Status * Calculated C-SSRS Risk Score (Lifetime/Recent) Answer Date of Assessment Author No Risk Indicated 03/10/2025 8:00 PM EDT Ezequiel Mccabe RN * Question Answer Date of Assessment Author 1. Wish to be (Past 1 Month) No 03/10/2025 8:00 PM EDT Ezequiel Mccabe RN 2. Non-Specific Active Suici sarthak Thoughts (Past 1 Month) No 03/10/2025 8:00 PM EDT Billie Mccabe RN 6. Suicidal Behavior (Lifetime) No 8:00 PM EDT Ezequiel Mccabe RN documented as of this encounter Plan of [...] documented as of this encounter Care Teams Assistant Service Manager Relationship Specialty Start Date End Date Pcp, No [address] [place] [address] PCP - General Family Medicine 02/16/25 documented as of this encounter
--- OUTSIDE RECORDS SUMMARY | 2025-05-05 15:38 | XMS_ITS | Encounter Summary ---
Author Organization Healthcare Address [address] [id number] Care Team Providers Care Pump Tender Name Role Phone Pcp, No Primary Care Provider Unavailabl e Encounter Details Date Type Department Care Team (Latest Contact Info) Description 03/12/2025 Travel Social History Tobacco Use Types Packs/Day [...] any time in the past 12 m [facility], were you homeless or living in a [facility] (including now)? No 03/11/2025 Utilities Answer Date [...] documented as of this encounter Care Teams Pump Tender Relationship Specialty Start Date End Date Pcp, No [address] [place] [address] PCP - General Family Medicine 02/16/25 documented as of this encounter
--- OUTSIDE RECORDS SUMMARY | 2025-05-05 15:38 | XMS_ITS | Encounter Summary ---
Author Organization Healthcare Address [address] [phone] Care Team Providers Care Forming And Assembling Supervisor Name Role Phone Pcp, No Primary Care Provider Unavailabl e Encounter Details Date Type Department Care Team (Latest Contact Info) Description 03/13/2025 Travel Social History Tobacco Use Types Packs/Day [...] were you homeless or living in a alf (including now)? No 03/11/2025 Utilities Answer Date [...] documented as of this encounter Care Teams Forming And Assembling Supervisor Relationship Specialty Start Date End Date Pcp, No [address] [place] [address] PCP - General Family Medicine 02/16/25 documented as of this encounter
--- OUTSIDE RECORDS SUMMARY | 2025-05-05 15:38 | XMS_ITS | Encounter Summary ---
Author Organization Healthcare Address [address] [id number] Care Team Providers Care Nursing Informatics Analyst Name Role Phone Pcp, No Primary Care Provider Unavailabl e Encounter Details Date Type Department Care Team (Latest Contact Info) Description 03/14/2025 Travel Social History Tobacco Use Types Packs/Day [...] the past 12 m [facility], were you homeless or living in [...] documented as of this encounter Care Teams Nursing Informatics Analyst Relationship Specialty Start Date End Date Pcp, No [address] [place] [address] PCP - General Family Medicine 02/16/25 documented as of this encounter
--- OUTSIDE RECORDS SUMMARY | 2025-05-05 15:38 | XMS_ITS | Encounter Summary ---
Author Organization Healthcare Address [address] [id number] Care Team Providers Care Hvac Technician Residential Name Role Phone Pcp, No Primary Care Provider Unavailabl e Encounter Details Date Type Department Care Team (Latest Contact Info) Description 03/11/2025 Travel Social History Tobacco Use Types Packs/Day [...] any time in the past 12 m [facility], were you homeless or living in [...] Ritter RN documented as of this encounter Plan [...] documented as of this encounter Care Teams Hvac Technician Residential Relationship Specialty Start Date End Date Pcp, No [address] [place] [address] PCP - General Family Medicine 02/16/25 documented as of this encounter
--- NOTE | 2025-05-05 15:45 | MR_ITS ---
PROCEDURE INFORMATION: Exam: MRA Head Without and With Contrast; Arteriography Exam date and time: 05/05/2025 3:45 PM Age: 25 years old Clinical indication: Headache; Additional info: Right pupil constricted post surgery (chest tube placement) (repair of collapsed lung). Migraines TECHNIQUE: Imaging protocol: Magnetic resonance angiography head without and with contrast. Angiographic sequences such as [id number] (TOF) or Time-resolved contrast techniques were performed. Exam focused on the arteries. Contrast material: PROHANCE; Contrast volume: 11 ml; Contrast route: IV; COMPARISON: CT HEAD/BRAIN WO CON 05/22/2023 10:22 PM FINDINGS: ANTERIOR CIRCULATION: Right internal carotid artery: Intracranial segment is patent with no significant stenosis. No aneurysm. Right middle cerebral artery: No occlusion or significant stenosis. No aneurysm. Right anterior cerebral artery: No occlusion or significant stenosis. No aneurysm. Left internal carotid artery: Intracranial segment is patent with no significant stenosis. No aneurysm. Left middle cerebral artery: No occlusion or significant stenosis. No aneurysm. Left anterior cerebral artery: No occlusion or significant stenosis. No aneurysm. POSTERIOR CIRCULATION: Right vertebral artery: No occlusion or significant stenosis. No aneurysm. Left vertebral artery: No occlusion or significant stenosis. No aneurysm. Basilar artery: No occlusion or significant stenosis. No aneurysm. Right posterior cerebral artery: No occlusion or significant stenosis. No aneurysm. Left posterior cerebral artery: No occlusion or significant stenosis. No aneurysm. IMPRESSION: No stenosis or occlusion.
[2025-05-05] MEDS: 0.9 % SODIUM CHLORIDE 50 ML VIAL 20 ML IV (16:22)
[2025-05-05] MEDS: GADOTERIDOL INJ 20ML SYRINGE 11 ML IV (16:22)
== END 2025-05-05 23:59 | disposition home or self-care (01) ==
LOC: RAD 15:35
PROVIDERS: PCP Nurse Practitioner Family; Visit Provider Nurse Practitioner Family
DX: H57.9 Unspecified disorder of eye and adnexa (principal); R51.9 Headache, unspecified
CPT/HCPCS: 70546; A9576

== ENCOUNTER 2025-05-11 15:58 | Outpatient (CLI) | payer OTHER, SELFPAY ==
--- OUTSIDE RECORDS SUMMARY | 2025-03-10 11:46 | XMS_ITS | Encounter Summary ---
Author Organization Healthcare Address [address] [place] [address] Care Team Providers Care Operator Maintainer Name Role Phone Pcp, No Primary Care Provider Unavailabl e Reason for Visit * Reason Comments Chest Pain * Auth/Cert (Routine) Specialty Diagnoses / Procedures Referred By Gisele t Referred To Contact Diagnoses Empyema lung (CMS/HCC) Pleural effusion Kaylan Cao MD [address] [address] Phone: tel: fax: P[facility] A Inpatient [address] [place] [address] Phone: tel: Referral ID Status Reason Start Date Expiration Date Visits Re quested Visits Authorized [id number] 1 1 Encounter Details Date Type Department Care Team ([facility] Contact Info) Description 03/10/2025 11:46 AM EDT - 03/15/2025 4:52 PM EDT Hospital Encounter [facility] [address] [place] [address] Radames Jane MD [address] [place] [address] Fatmata De Jesus MD [address] [place] [address] Kaylan Cao MD [address] [address] Pleural effusion (Primary Dx); Empyema lung (CMS/HCC) Discharge Disposition: Home or Self Care Social History Tobacco Use Types Packs/Day Years Used Date Smoking Tobacco: Never Smokeless Tobacco: Never Humiliation, Afraid, Rape, and Kick questionnair e Answer Date Recorded Within the last year, have y ou been afraid of your partner or ex-partner? No 03/11/2025 Within the last year, have y ou been humiliated or emotionally abused in other ways by your partner or ex-partner? No Within the last year, have y ou been kicked, hit, slapped, or otherwise physically hurt by your partner or ex-partner? No 03/11/2025 Within the last year, have y ou been raped or forced to have any kind of sexual activity by your partner or ex-partner? No 03/11/2025 Hunger Vital Sign Answer Date Recorded Within the past 12 months, y ou worried that your food would run out before you got the money to buy more. Never true 03/11/20 25 Within the past 12 months, t he food you bought just didn't last and you didn't have money to get more. Never true 03/11/2025 PRAPARE - Transportation Answer Date Re corded In the past 12 months, has l ack of transportation kept you from medical appointments or from getting medications? No 02/23 In the past 12 months, has l ack of transportation kept you from meetings, work, or from getting things needed for daily living? No 03/11/2025 Housing Stability Vital Sign Answer Yves e Recorded In the last 12 months, was t here a time when you were not able to pay the mortgage or rent on time? No 03/11/2025 Number of Times Moved in the Last Year Not on fi le 03/11/2025 At any time in the past 12 m [facility], were you homeless or living in a [facility] (including now)? No 03/11/2025 Utilities Answer Date Recorded In the past 12 months has th e electric, gas, oil, or water company threatened to shut off services in your home? No 03/11/2025 Comments No Sex and Gender Information Value Date Recorded Sex Assigned at Not on file Legal Sex Female 8:08 PM EDT Gender Identity Not on file Sexual Orientation Not on file documented as of this encounter Last Filed Vital Signs Vital Sign Reading Time Taken Comments Blood Pressure 104/61 03/15/2025 11:27 AM EDT Pulse 92 03/15/2025 11:27 AM EDT Temperature 36.6 C (97.9 F) 03/15/2025 11:27 AM EDT Respiratory Rate 14 03/15/2025 2:50 AM EDT Oxygen Saturation 93% 03/15/2025 11:27 AM EDT Inhaled Oxygen Concentration - - Weight 45.9 kg (101 lb 3.1 oz) 03/15/2025 6:00 A M EDT Height 162.6 cm (5' 4 ) 03/10/2025 7:38 PM EDT Body Mass Index 17.37 03/10/2025 7:38 PM EDT documented in this encounter Functional Status * Calculated C-SSRS Risk Score (Lifetime/Recent) Answer Date of Assessment Author No Risk Indicated 03/11/2025 7:00 AM EDT Chasity Amin RN * Question Answer Date of Assessment Author 1. Wish to be (Past 1 Month) No 03/11/2025 7:00 AM EDT Janessa Ritter RN 2. Non-Specific Active Suicidal Thoughts (Past 1 Month) No 03/11/2025 7:00 AM EDT Janessa Ritter RN 6. Suicidal Behavior (Lifetime) No 03/11/2025 7:00 AM EDT Janessa Ritter RN documented as of this encounter Discharge Instructions * Discharge Instructions* García Chew, - 03/15/2025 9:31 AM EDT Medications: - You should take Tylenol and/or Robaxin every 6 hours as needed for mild - moderate pain. - You have been prescribed pain medications to be taken as needed for severe pain. - You should take a stool softener prescribed as long as you are taking narcotics. - You may resume your previous medications unless otherwise instructed. Nutrition: - Regular diet Activity: - Walking and climbing stairs is ok and encouraged. You should refrain from any strenuous activity/exercise until your follow up appointment. - No lifting anything >10lbs for the next 2 weeks - You may not drive for 48 hours after surgery, or while taking narcotics Dressing: - A special skin glue is used to close and cover your incision. Do not pick it off, it will fall ofon its own after approximately 2 weeks. The glue is waterproof but you should not soak your incision or take a tub bath for 2 weeks. - You should try to keep your incisions as clean and dry as possible - You may shower. Let the soapy water run over your incisions. Do not scrub at your incisions. After you shower, pat your incisions dry with a clean towel. - Do NOT soak your incisions, or take a tub bath for 2 weeks. - Chest tube dressing may be removed 48 hours after chest tube removal - remove dressing on 03/17/2025 - If fluid is draining from chest tube site, you may cover with gauze and tape. If no fluid is draining, a dressing is not needed. - Stitches will be removed at follow up appointment. Potential Issues: - It is normal to have some pain and soreness, especially around the incisions - A small amount of clear drainage from the incision may be expected, call the office if the drainage becomes bloody, purulent (pus), or foul-smelling - Call the office if you start to have increased redness, drainage, swelling, or increased pain around your incision - Call the office if you have a fever greater than 101 F - Call the office if you have severe abdominal discomfort, nausea and vomiting, or feeling unwell Follow Up: - You will be contacted by the clinic for a follow up appointment with Dr. Cao in 2 weeks with2 view chest x ray. - Contact the Thoracic Surgery team via: - For non-emergent questions/concerns: Clinic discharge # - For urgent questions/concerns: [facility] hotline: , option 4 - ask for the thoracic surgeon safety instruction police officer. documented in this encounter Medications at Time of Discharge acetaminophen (Tylenol) 500 MG tablet Take 2 tablets by mouth every 8 hours. 100 tablet 1 03/15/2025 etonogestrel-elutin g contraceptive device 68 MG implant 1 each by Implant route 1 (one) time. methocarbamol (Robaxin) 750 MG tablet Take 1 tablet by mouth 4 (four) times a day. 120 tablet 1 03/15/2025 5 lidocaine (Lidoderm) 5 % patch Apply 1 patch topically daily over 12 hours for 20 days. Remove & discard patch within 12 hours or as directed by . 10 patch 1 03/16/2025 5 naloxone (Narcan) 4 mg/0.1 mL nasal spray 1. Give 1 spray in nostril for no/slow breathing or cannot wake after opioid use 2. Call 911 3. Repeat in other nostril if symptoms continue 1 each 03/15/2025 5 oxyCODONE (Roxicodone) 5 MG immediate release tablet Take 1 tablet by mouth every 4 (four) hours as needed (moderate pain (4-6 on the numeric pain scale)). 25 tablet 03/15/2025 5 senna-docusate (Melina-Colace) 8.6-50 MG tablet Take 2 tablets by mouth 2 (two) times a day for 3015 doses. Take as prescribed if taking oxycodone to prevent constipation. 30 tablet 03/15/2025 5 documented as of this encounter Miscellaneous Notes * Carie Santamaria, CARMELITA - 03/15/2025 3:59 PM EDT Images from the original note were not included. 680 Work Release Form This notice verifies that your employee was seen in this facility today (or on if checked [ ]). He/she may return to work on with the following restrictions: None: [ ] No heavy lifting: [ ] (over pounds) No prolonged standing: [ ] Desk Work Only: [ ] Other: [ ] (described below) These restrictions apply through . After this date, your employee should be able to participate fully in work duties. Be Advised: If symptoms continue and the employee is unable to perform the full duties of their job by this date, please advise the employee to make an appointment with your worker?s comp physician. If that is not possible, the employee should see his or her own doctor or the referral doctor provided by us. Physician or Nurse Notes: * Discharge Summary - Gloria Elizalde MD - 03/15/2025 1:16 PM EDT Hospitalization Admit Date/Time: 03/10/2025 11:46 AM Admitting Attending: Kaylan Cao Discharge Date: 03/15/2025 Discharge Attending Physician: Kaylan Cao MD PCP name and Address: Pcp, Venessa [address] [place], [place] [id number] Referring provider name and address: No referring provider defined for this encounter. Chief Concern, Brief History of Present Illness, and Hospital Course Sarah Crane is a 25 y.o. female who presented to the ED with R Pleural effusion concerning for empyema. She was taken to the operating room on 03/10/2025 for elective Bronchoscopy, right VATS decortication. The patient tolerated the procedure well and was subsequently extubated and transferred to the PACU for recovery. After recovery, the patient did well postoperatively, with pain well managed and tolerated advancements in diet. Her straight chest tube was removed on 03/14 and her Bhavesh drain was removed on 03/15. Her CXR following removal of chest tubes were stable. At the time of discharge, patient was HDS, afebrile, tolerating PO intake, ambulating, and voiding spontaneously. She was appropriate for discharge on 03/15/25 to Home. She will return to clinic with Dr. Cao in 2 weeks for follow-up. Surgeries and Procedures Procedures performed in this encounter Procedures Case Request Operating Room: R VATS Decortication, Possible Pleurodesis R VATS Decortication, Possible Pleurodesis (Right) Medication List .. acetaminophen 500 MG tablet Commonly known as: Tylenol Take 2 tablets by mouth every 8 hours. etonogestrel-eluting contraceptive device 68 MG implant 1 each by Implant route 1 (one) time. lidocaine 5 % patch Commonly known as: Lidoderm Apply 1 patch topically daily over 12 hours for 20 days. Remove & discard patch within 12 hoursor as directed by MD. Start taking on: March 16, 2025 methocarbamol 750 MG tablet Commonly known as: Robaxin Take 1 tablet by mouth 4 (four) times a day. naloxone 4 mg/0.1 mL nasal spray Commonly known as: Narcan 1. Give 1 spray in nostril for no/slow breathing or cannot wake after opioid use 2. Call 911 3. Repeat in other nostril if symptoms continue oxyCODONE 5 MG immediate release tablet Commonly known as: Roxicodone Take 1 tablet by mouth every 4 (four) hours as needed (moderate pain (4-6 on the numeric pain scale)). senna-docusate 8.6-50 MG tablet Commonly known as: Melina-Colace Take 2 tablets by mouth 2 (two) times a day for 3015 doses. Take as prescribed if taking oxycodone to prevent constipation. Where to Get Your Medications These medications were sent to [facility] - [place], [place] - [address] [facility] [id number] acetaminophen 500 MG tablet lidocaine 5 % patch methocarbamol 750 MG tablet naloxone 4 mg/0.1 mL nasal spray oxyCODONE 5 MG immediate release tablet senna-docusate 8.6-50 MG tablet Discharge Diagnosis Medical Problems Active and Resolved Hospital Problems Hospital Anemia Overview Signed 03/11/2025 9:49 AM by Queenie Landry APRN Monitor - Transfuse as indicated BMI less than 19,adult RESOLVED: Spontaneous pneumothorax Overview Signed 03/11/2025 9:48 AM by Queenie Landry APRN History of - about 3 weeks FAN RUNNER - resolved with chest tube RESOLVED: Empyema lung (CMS/HCC) * (Principal) RESOLVED: Pleural effusion Overview Signed 03/12/2025 9:10 AM by Queenie Landry APRN 03/11/2025: Bronchoscopy, right VATS decortication Pain control - no NSAIDs Monitor tube output Post Discharge Instructions Medications: - You should take Tylenol and/or Robaxin every 6 hours as needed for mild - moderate pain. - You have been prescribed pain medications to be taken as needed for severe pain. - You should take a stool softener prescribed as long as you are taking narcotics. - You may resume your previous medications unless otherwise instructed. Nutrition: - Regular diet Activity: - Walking and climbing stairs is ok and encouraged. You should refrain from any strenuous activity/exercise until your follow up appointment. - No lifting anything >10lbs for the next 2 weeks - You may not drive for 48 hours after surgery, or while taking narcotics Dressing: - A special skin glue is used to close and cover your incision. Do not pick it off, it will fall ofon its own after approximately 2 weeks. The glue is waterproof but you should not soak your incision or take a tub bath for 2 weeks. - You should try to keep your incisions as clean and dry as possible - You may shower. Let the soapy water run over your incisions. Do not scrub at your incisions. After you shower, pat your incisions dry with a clean towel. - Do NOT soak your incisions, or take a tub bath for 2 weeks. - Chest tube dressing may be removed 48 hours after chest tube removal - remove dressing on 03/17/2025 - If fluid is draining from chest tube site, you may cover with gauze and tape. If no fluid is draining, a dressing is not needed. - Stitches will be removed at follow up appointment. Potential Issues: - It is normal to have some pain and soreness, especially around the incisions - A small amount of clear drainage from the incision may be expected, call the office if the drainage becomes bloody, purulent (pus), or foul-smelling - Call the office if you start to have increased redness, drainage, swelling, or increased pain around your incision - Call the office if you have a fever greater than 101 F - Call the office if you have severe abdominal discomfort, nausea and vomiting, or feeling unwell Follow Up: - You will be contacted by the clinic for a follow up appointment with Dr. Cao in 2 weeks with2 view chest x ray. - Contact the Thoracic Surgery team via: - For non-emergent questions/concerns: Clinic discharge # - For urgent questions/concerns: [facility] hotline: , option 4 - ask for the thoracic surgeon safety instruction police officer. Outpatient Follow-Up No future appointments. Test Results Pending At Discharge Pending Labs Order Current Status Surgical Pathology Exam In process Blood Culture (Aerobic/Anaerobet Set) Preliminary result Prepare Leukocyte Reduced RBC: 2 Units Preliminary result Pertinent Physical Exam At Time of Discharge Physical Exam Constitutional: Appearance: Normal appearance. HENT: Head: Normocephalic and atraumatic. Right Ear: External ear normal. Left Ear: External ear normal. Nose: Nose normal. Mouth/Throat: Mouth: Mucous membranes are moist. Eyes: Extraocular Movements: Extraocular movements intact. Pupils: Pupils are equal, round, and reactive to light. Cardiovascular: Rate and Rhythm: Normal rate. Pulmonary: Effort: Pulmonary effort is normal. No respiratory distress. Abdominal: General: Abdomen is flat. There is no distension. Palpations: Abdomen is soft. Musculoskeletal: General: Normal range of motion. Cervical back: Normal range of motion. Skin: General: Skin is warm. Comments: Chest tube sites with stitches in place. Tape over chest tube sites. Neurological: Mental Status: She is alert. Discharge Disposition/Condition Disposition: Home Condition: Stable (s/sx potential problems absent or manageable) I spent >30 minutes of patient care and instruction time in preparation for this discharge. Cosigned by Kaylan Cao MD at 03/15/2025 5:32 PM EDT Associated attestation - Kaylan Cao MD - 03/15/2025 5:32 PM EDT I saw and evaluated the patient with the resident/fellow. I discussed the case with the resident/fellow and agree with the findings and plan as documented. * Progress Notes - Margarita Greco RN - 03/15/2025 10:49 AM EDT Case Management Discharge Note Sarah Crane 25 y.o. female CSN: [id number] Admission: 03/10/2025 11:46 AM Primary Problem: Pleural effusion Primary : Primary Caregiver: Self Assistance Available at Discharge: Availability of Care Givers (#Hours): 24 hours Housing Circumstances-Z Codes: Housing Circumstances (select all that apply): None Applicable Patient Referred to Financial or Community Resources: Financial Resources: (n/a) Discharge Facility/Level of Care Needs: Discharge Facility/Level of Care Needs: 1-Home or Self Care Patient's Choice of Community Agency(s): Patient's Choice of Community Agency(s): n/a Patient/Family Anticipated Services at Transition: Patient/Family Anticipated Services at Transition: none DME/Equipment Needed after Discharge: Equipment Currently Used at Home: none Readmission Within the Last 30 Days: Readmission Within the Last 30 Days: no previous admission in last 30 days Follow-up: No follow-up provider specified. Discharge Transportation: Transportation Anticipated: family or friend will provide Transportation Home at Discharge: Family/Friend will Provide Follow Up Transport: Transportation Needed to Follow up Appoinments: Family/Friend will Provide, Self Additional Comments: Per primary team patient may discharging pending repeat CXR. RN CM met with patient at bedside and she is agreeable. No CM/SW needs identified. Mother will assist and transport. Margarita Greco RN * Hospital Course - Gloria Elizalde MD - 03/15/2025 9:15 AM EDT Sarah Crane is a 25 y.o. female who presented to the ED with R Pleural effusion concerning for empyema. She was taken to the operating room on 03/10/2025 for elective Bronchoscopy, right VATS decortication. The patient tolerated the procedure well and was subsequently extubated and transferred to the PACU for recovery. After recovery, the patient did well postoperatively, with pain well managed and tolerated advancements in diet. Her straight chest tube was removed on 03/14 and her Bhavesh drain was removed on 03/15. Her CXR following removal of chest tubes were stable. At the time of discharge, patient was HDS, afebrile, tolerating PO intake, ambulating, and voiding spontaneously. She was appropriate for discharge on 03/15/25 to Home. She will return to clinic with Dr. Cao in 2 weeks for follow-up. * Progress Notes - Bre Matson MD - 03/14/2025 7:18 AM EDT Images from the original note were not included. [facility] Department of Surgery Section of Thoracic Surgery Progress Note 03/14/25 Sarah Crane History of Present Illness Sarah Crane is a 25 y.o. female that presented to [facility] on 03/10/2025 after CXR demonstrated moderate R pleural effusion at appointment with PCP on 03/09. The patient had a spontaneous pneumothorax 3 weeks FAN RUNNER, for which she was admitted to an OSH for 5 days and a pigtail catheter was inserted and removed after ptx resolved. On 02/25/2025 the patient returned to the OSH ED because of R chest pain. This resulted in her getting a CXR that demonstrated a small R pleural effusion. The patient continued to have pleuritic type right chest pain and night sweats, prompting visit to PCP. The patient is now 3 Days Post-Op from right VATS decortication. Procedures this admission 03/11/2025: Bronchoscopy, right VATS decortication Events of last 24 hours NAEON. Some nausea overnight. Doing well this morning. Tolerating regular diet, pain controlled. Noair leak on either chest tube. AF, VSS, RA UOP 2x (4x), R CT (#1) 21 (25), R CT (#2) 57 (81) WBC 10.78 (14.97), hgb 10.2 (9.1) Cr 0.49 (0.53), K 3.6 CXR stable Physical Exam: Visit Vitals BP (!) 150/92 (BP Location: Right arm, Patient Position: Lying) Pulse 95 Temp 36.6 ??C (97.9 ??F) (Oral) Ht 1.626 m (5' 4 ) Wt 49 kg (108 lb 0.4 oz) SpO2 94% BMI 18.54 kg/m?? GENERAL: WD, WN, NAD EYES: No scleral icterus or conjunctivitis HENT: Atraumatic, normocephalic, nares patent, mucus membranes moist NECK: Supple RESP/CHEST: symmetric chest rise, non-labored, right CT x 2 CARD: regular rate, regular rhythm Extremities: No lower extremity edema present. GI: soft, non-distended SKIN: No rash, sores, lesions or subcutaneous nodules. NEURO: AAOx4. Motor intact and no focal deficits PSYCH: Mood and affect congruent and appropriate to situation Intake/Output Summary (Last 24 hours) at 03/14/2025 0954 Last data filed at 03/14/2025 0550 Gross per 24 hour Intake -- Output 78 ml Net -78 ml Lines/Drains/Tubes: Patient Lines/Drains/Airways Status Active Airway None Output by Drain (mL) 03/12/25 0700 - 03/12/25 18503/12/25 1900 - 03/13/25 0659 03/13/25 07 - 03/13/25 1859 03/13/25 1900 - 03/14/25 0659 03/14/25 0700 - 03/14/25 0954 Requested LDAs do not have output data documented. Labs in last 18 hours: CBC WBC 10.78 (H) Hb 10.2 (L) Plt 668 (H) Hct 32.9 (L) ANC ?? INR ??, PTT ??, Anti-Xa ?? MCV 94 BMP Na 137 Cl 102 BUN 8 Glu 116 (H) K 3.6 Co2 28 Cr 0.49 (L) Ca 8.9 iCa ?? Mg 1.9, Phos 4.7 (H) Lactate ?? LFT AST ?? AlkPhos ?? T Prot ?? ALK ?? Bili ?? Alb ?? D.Bili ?? Lab Trends: H/H Results from last 7 days Lab Units 03/14/25 0326 03/13/25 0333 03/12/25 0323 HEMOGLOBIN g/dL 10.2* 9.1* 11.8 HEMATOCRIT % 32.9* 28.1* 36.7 INR Results from last 7 days Lab Units 03/10/25 1145 INR 1.2* Cr Results from last 7 days Lab Units 03/14/25 0326 03/13/25 0333 03/12/25 0323 CREATININE mg/dL 0.49* 0.53* 0.48* Medications reviewed. Vital signs reviewed. Labs reviewed. Radiography reviewed. CXR: stable Assessment and Plan: Medical Problems Problem List * (Principal) Pleural effusion Overview Signed 03/12/2025 9:10 AM by Queenie Landry APRN 03/11/2025: Bronchoscopy, right VATS decortication Pain control - no NSAIDs Monitor tube output Spontaneous pneumothorax Overview Signed 03/11/2025 9:48 AM by Queenie Landry APRN History of - about 3 weeks FAN RUNNER - resolved with chest tube Anemia Overview Signed 03/11/2025 9:49 AM by Queenie Landry APRN Monitor - Transfuse as indicated BMI less than 19,adult Present on Admission: Pleural effusion Anemia (Resolved) Empyema lung (CMS/HCC) Sarah Crane is a 25 y.o. female status post R VATS Decort on 03/11/[address] Cao (3 Days Post-Op). Plan: - Remove straight chest tube today - Continue Bhavesh to water seal - 4hr post pull CXR - Daily CXR - No daily labs - MMPC - no NSAIDs - Mobilize - Regular diet - Appropriate home meds - DVT ppx Bre Matson MD Thoracic Surgery Cosigned by Kaylan Cao MD at 03/15/2025 5:27 PM EDT Associated attestation - Kaylan Cao MD - 03/15/2025 5:27 PM EDT I saw and evaluated the patient with the resident/fellow. I discussed the case with the resident/fellow and agree with the findings and plan as documented. * Progress Notes - Bre Matson MD - 03/13/2025 12:24 PM EDT Images from the original note were not included. [facility] Department of Surgery Section of Thoracic Surgery Progress Note 03/13/25 Sarah Crane History of Present Illness Sarah Crane is a 25 y.o. female that presented to [facility] on 03/10/2025 after CXR demonstrated moderate R pleural effusion at appointment with PCP on 03/09. The patient had a spontaneous pneumothorax 3 weeks FAN RUNNER, for which she was admitted to an OSH for 5 days and a pigtail catheter was inserted and removed after ptx resolved. On 02/25/2025 the patient returned to the OSH ED because of R chest pain. This resulted in her getting a CXR that demonstrated a small R pleural effusion. The patient continued to have pleuritic type right chest pain and night sweats, prompting visit to PCP. The patient is now 2 Days Post-Op from right VATS decortication. Procedures this admission 03/11/2025: Bronchoscopy, right VATS decortication Events of last 24 hours No acute events. Ambulating in room. Physical Exam: Visit Vitals BP 107/69 Pulse 91 Temp 36.3 ??C (97.4 ??F) Ht 1.626 m (5' 4 ) Wt 47.8 kg (105 lb 6.1 oz) SpO2 95% BMI 18.09 kg/m?? GENERAL: WD, WN, NAD EYES: No scleral icterus or conjunctivitis HENT: Atraumatic, normocephalic, nares patent, mucus membranes moist NECK: Supple RESP/CHEST: symmetric chest rise, non-labored, right CT x 2 CARD: regular rate, regular rhythm Extremities: No lower extremity edema present. GI: soft, non-distended SKIN: No rash, sores, lesions or subcutaneous nodules. NEURO: AAOx4. Motor intact and no focal deficits PSYCH: Mood and affect congruent and appropriate to situation Intake/Output Summary (Last 24 hours) at 03/13/2025 1224 Last data filed at 03/13/2025 0627 Gross per 24 hour Intake 770 ml Output 106 ml Net 664 ml Lines/Drains/Tubes: Patient Lines/Drains/Airways Status Active Airway None Output by Drain (mL) 03/11/25 07 - 03/11/25 1859 03/11/25 190 - 03/12/25 0659 03/12/25 07 - 03/12/25 1859 03/12/25 1900 - 03/13/25 0659 03/13/25 0700 - 03/13/25 1224 Requested LDAs do not have output data documented. Labs in last 18 hours: CBC WBC 14.97 (H) Hb 9.1 (L) Plt 638 (H) Hct 28.1 (L) ANC ?? INR ??, PTT ??, Anti-Xa ?? MCV 93 BMP Na 139 Cl 102 BUN 7 Glu 119 (H) K 3.9 Co2 29 Cr 0.53 (L) Ca 8.9 iCa ?? Mg 2.1, Phos 4.1 Lactate ?? LFT AST ?? AlkPhos ?? T Prot ?? ALK ?? Bili ?? Alb ?? D.Bili ?? Lab Trends: H/H Results from last 7 days Lab Units 03/13/25 0333 03/12/25 0323 03/11/25 0351 HEMOGLOBIN g/dL 9.1* 11.8 9.5* HEMATOCRIT % 28.1* 36.7 29.0* INR Results from last 7 days Lab Units 03/10/25 1145 INR 1.2* Cr Results from last 7 days Lab Units 03/13/25 0333 03/12/25 0323 03/11/25 0351 CREATININE mg/dL 0.53* 0.48* 0.50* Medications reviewed. Vital signs reviewed. Labs reviewed. Radiography reviewed. CXR: stable Assessment and Plan: Medical Problems Problem List * (Principal) Pleural effusion Overview Signed 03/12/2025 9:10 AM by Queenie Landry APRN 03/11/2025: Bronchoscopy, right VATS decortication Pain control - no NSAIDs Monitor tube output Spontaneous pneumothorax Overview Signed 03/11/2025 9:48 AM by Queenie Landry APRN History of - about 3 weeks FAN RUNNER - resolved with chest tube Anemia Overview Signed 03/11/2025 9:49 AM by Queenie Landry APRN Monitor - Transfuse as indicated BMI less than 19,adult Present on Admission: Pleural effusion Anemia (Resolved) Empyema lung (CMS/HCC) Sarah Crane is a 25 y.o. female status post R VATS Decort on 03/11/[address] Cao (2 Days Post-Op). Plan: - Chest tubes placed to water seal - CXR at 1600 - Pain control - no NSAIDs - Mobilize - Regular diet - Resume home medications as appropriate. Bre Matson MD Thoracic Surgery Cosigned by Kaylan Cao MD at 03/15/2025 5:21 PM EDT Associated attestation - Kaylan Cao MD - 03/15/2025 5:21 PM EDT I saw and evaluated the patient with the resident/fellow. I discussed the case with the resident/fellow and agree with the findings and plan as documented. * Consults - Sharla Germain RD - 03/12/2025 10:22 AM EDT Adult Nutrition Evaluation Note Sarah Crane 25 y.o. female CSN: [id number] Room/Bed 642/642A Nutrition evaluation type: assessment Reason for evaluation: Low BMI Hospital course: 25 y/o female admitted for moderate right pleural effusion. S/p bronchoscopy, right VATS decortication on 03/11. Past medical/ surgical history: Medical History[1] Surgical History[2] Additional comments: Pt reports good appetite and intake. RD discussed menu options and snacks available. Vitals and Basic Assessment: BP: 103/53 Temp: 36.6 ??C (97.9 ??F) Oxygen Therapy: Supplemental oxygen O2 Delivery Method: Nasal cannula [place] Coma Scale Score: 15 [place] Scale Score: 21 Most Recent BM Date: 03/10/25 Allergies: NKFA Medications: acetaminophen, 1,000 mg, Oral, q8h RICHARD enoxaparin, 30 mg, Subcutaneous, Daily ipratropium-albuterol, 3 mL, Nebulization, q4h RICHARD lidocaine, 1 patch, Apply externally, Daily methocarbamol, 500 mg, Oral, q6h RICHARD pantoprazole, 40 mg, Oral, Daily senna-docusate, 2 tablet, Oral, BID [COMPLETED] Insert peripheral IV, , , Once AND [COMPLETED] Saline lock IV, , , Once AND sodium chloride, 10 mL, Intravenous, q12h AND sodium chloride, 10 mL, Intravenous, PRN Labs: Labs in last 18 hours CBC WBC 20.78 (H) Hb 11.8 Plt 898 (H) Hct 36.7 ANC ?? INR ??, PTT ??, Anti-Xa ?? BMP Na 139 Cl 101 BUN 8 Glu 164 (H) K 4.6 Co2 23 Cr 0.48 (L) Ca 9.7 iCa ?? Mg 2.2, Phos 4.8 (H) Lactate ?? No results found for: HGBA1C Anthropometrics: Height: 162.6 cm (5' 4 ) Weight: 46.7 kg (102 lb 15.3 oz) BMI (Calculated): 17.66 Weight Evaluation: Underweight (BMI<18.5) [place] Body Weight (kg): 54.5 Percent [place] Body Weight: 86 Wt Readings from Last 5 Encounters: 03/12/25 46.7 kg (102 lb 15.3 oz) 06/11/22 45.4 kg (100 lb) Estimated Needs: Metabolic Cart Study Results: Current Nutrition Intake: Diet Order: Adult Diet Diet Texture: Regular Diet Experience and Nutrition History: Diet Education Provided: Will monitor Nutrition Focused Physical Exam: Physical exam performed on (date): 03/12/25 Temples (muscles): None Clavicle (muscle): Mild Shoulder (muscle): None Orbital (fat): None Triceps (fat): None Assessment of Malnutrition: Malnutrition Identified: No Nutrition Problem: No nutrition problem Nutrition Interventions and Recommendations: - Regular diet as tolerated. Nutrition Monitoring and Goals: - Consume >75% of meals Acuity Level: [address] [1] History reviewed. No pertinent past medical history. [2] Past Surgical History: Procedure Laterality Date WISDOM TOOTH EXTRACTION * Progress Notes - Queenie Landry APRN - 03/12/2025 9:11 AM EDT Images from the original note were not included. [facility] Department of Surgery Section of Thoracic Surgery Progress Note 03/12/25 Sarah Crane History of Present Illness Sarah Crane is a 25 y.o. female that presented to [facility] on 03/10/2025 after CXR demonstrated moderate R pleural effusion at appointment with PCP on 03/09. The patient had a spontaneous pneumothorax 3 weeks FAN RUNNER, for which she was admitted to an OSH for 5 days and a pigtail catheter was inserted and removed after ptx resolved. On 02/25/2025 the patient returned to the OSH ED because of R chest pain. This resulted in her getting a CXR that demonstrated a small R pleural effusion. The patient continued to have pleuritic type right chest pain and night sweats, prompting visit to PCP. The patient is now 1 Day Post-Op from right VATS decortication. Procedures this admission 03/11/2025: Bronchoscopy, right VATS decortication Events of last 24 hours NAEON. Recovering well post-operatively. States she has walked to the bathroom. Alert. AF, VSS, 2 L NC UOP 1x, R CT (#1) 30, R CT (#2) 64 WBC 20.78, Cr 0.48 Relevant review of systems was obtained as able and is negative unless stated above in HPI. Physical Exam: Visit Vitals BP 121/68 Pulse 92 Temp 36.6 ??C (97.9 ??F) Ht 1.626 m (5' 4 ) Wt 46.7 kg (102 lb 15.3 oz) SpO2 98% BMI 17.67 kg/m?? GENERAL: WD, WN, NAD EYES: No scleral icterus or conjunctivitis HENT: Atraumatic, normocephalic, nares patent, mucus membranes moist NECK: Supple RESP/CHEST: symmetric chest rise, non-labored, right CT x 2 CARD: regular rate, regular rhythm Extremities: No lower extremity edema present. No cyanosis or clubbing. Pedal pulses palpable +2. GI: soft, non-distended SKIN: No rash, sores, lesions or subcutaneous nodules. NEURO: AAOx4. Motor intact and no focal deficits PSYCH: Mood and affect congruent and appropriate to situation Intake/Output Summary (Last 24 hours) at 03/12/2025 0911 Last data filed at 03/12/2025 0600 Gross per 24 hour Intake 1333.6 ml Output 94 ml Net 1239.6 ml Lines/Drains/Tubes: Patient Lines/Drains/Airways Status Active Airway None Output by Drain (mL) 03/10/25 0700 - 03/10/25 1859 03/10/25 1900 - 03/11/25 0659 03/11/25 0700 - 03/11/25 1859 03/11/25 1900 - 03/12/25 0659 03/12/25 0700 - 03/12/25 0911 Requested LDAs do not have output data documented. Labs in last 18 hours: CBC WBC 20.78 (H) Hb 11.8 Plt 898 (H) Hct 36.7 ANC ?? INR ??, PTT ??, Anti-Xa ?? MCV 92 BMP Na 139 Cl 101 BUN 8 Glu 164 (H) K 4.6 Co2 23 Cr 0.48 (L) Ca 9.7 iCa ?? Mg 2.2, Phos 4.8 (H) Lactate ?? LFT AST ?? AlkPhos ?? T Prot ?? ALK ?? Bili ?? Alb ?? D.Bili ?? Lab Trends: H/H Results from last 7 days Lab Units 03/12/25 0323 03/11/25 0351 03/10/25 1145 HEMOGLOBIN g/dL 11.8 9.5* 10.3* HEMATOCRIT % 36.7 29.0* 31.6* INR Results from last 7 days Lab Units 03/10/25 1145 INR 1.2* Cr Results from last 7 days Lab Units 03/12/25 0323 03/11/25 0351 03/10/25 1145 CREATININE mg/dL 0.48* 0.50* 0.47* Medications reviewed. Vital signs reviewed. Labs reviewed. Radiography reviewed. CXR: improved aeration, right CT x2 Assessment and Plan: Medical Problems Problem List * (Principal) Pleural effusion Overview Signed 03/12/2025 9:10 AM by Queenie Landry APRN 03/11/2025: Bronchoscopy, right VATS decortication Pain control - no NSAIDs Monitor tube output Spontaneous pneumothorax Overview Signed 03/11/2025 9:48 AM by Queenie Landry APRN History of - about 3 weeks FAN RUNNER - resolved with chest tube Anemia Overview Signed 03/11/2025 9:49 AM by Queenie Landry APRN Monitor - Transfuse as indicated BMI less than 19,adult Present on Admission: Pleural effusion Anemia (Resolved) Empyema lung (CMS/HCC) Plan: - Keep chest tube and Bhavesh drain to -20 suction - Pain control - no NSAIDs - Mobilize - Regular diet - Resume home medications as appropriate. Queenie Landry APRN Thoracic Surgery * Significant Event - Juvencio Tellez MD - 03/11/2025 10:44 PM EDT Images from the original note were not included. Thoracic Surgery Post Operative Check: Subjective: Procedure: Bronchoscopy, right VATS decortication Patient currently reports she is doing well after the procedure but in a moderate amount of pain. She says she hasn't voided yet but denies nausea and vomiting. She does not complain of any trouble breathing on 2L NC. She has no concerns at this time. Objective: Vitals: Vitals: 03/11/252042 BP: 113/70 Pulse: 109 Resp: Temp: 36.4 ??C (97.5 ??F) SpO2: 99% Physical Exam: GEN: No apparent distress. Resting comfortably in bed. NEURO: Awake, alert and oriented x3. No focal deficits. HENT: NCAT. Trachea appears midline. CV: Appears well-perfused. Normal rate. RESP: Symmetric chest rise. Non-labored breathing. [address] to suction. ABD: soft, non-distended MSK: Moves all extremities. No obvious deformities. SKIN: Warm and dry. Without pallor. Incisions: covered Labs: WBC ?? Hgb ?? PLT ?? HCT ?? INR ?? PTT ?? antiXa ?? Na ?? Cl ?? BUN ?? Gluc ?? K ?? CO2 ?? Creat ?? Ca ?? iCa ?? Mg ?? Phos ?? pH ?? pCO2 ?? pO2 ?? SPO2 ?? FIO2 ?? HCO3 ?? BE ?? Lactate ?? AST ?? AlkPhos ?? T Prot ?? ALT ?? Bili ?? Alb ?? D.Bili ?? Assessment and Plan: Sarah Crane is a 25 y.o. female who is recovering appropriately in the current post op period. Sheis in moderate amount of pain but is tolerable. Diet: CLD Anticoagulation/DVT ppx: SubQ heparin [facility] Chest Tubes: x2 on suction, one with minor air leak Chest Tube Output: SS I have answered and addressed all issues and concerns from the patient and nursing staff. I have notified senior resident/attending safety instruction police officer with any issues or concerns. Juvencio Tellez MD Thoracic Surgery * Anesthesia PACU Signout - Dimas Corbett CRNA, DNP - 03/11/2025 7:47 PM EDT Patient: Sarah Crane Anesthesia Type: general Vitals Value Taken Time BP 112/69 03/11/25 19:45 Temp 36.6 ??C (97.9 ??F) 03/11/25 17:50 Pulse 93 03/11/25 19:46 Resp 10 03/11/25 19:46 SpO2 97 % 03/11/25 19:46 Vitals shown include unfiled device data. Anesthesia PACU Signout Patient location during evaluation: PACU Patient participation: complete - patient participated Level of consciousness: awake Pain management: adequate (pain score 0-3) Airway patency: natural airway Hydration status: acceptable PONV: none Cardiovascular status: acceptable and hemodynamically stable Respiratory status: acceptable, spontaneous ventilation, unassisted, nonlabored ventilation and nasal cannula Discharge Disposition: admit to inpatient unit * Op Note - Kaylan Cao MD - 03/11/2025 4:08 PM EDT Operative Note Date: 03/11/25 Location: [facility] Name: Sarah Crane, : 2000, Diagnoses: Pre-op Diagnosis Pleural effusion Post-op Diagnosis Pleural effusion Procedure(s): Bronchoscopy, right VATS decortication Attending Surgeon(s): * Kaylan Cao - Primary Metal Hanger(s): * Bre Matson MD - Resident - Assisting Anesthesia: General ASA: II Specimens ID Source Frozen? 1 Other (specify site) No Description: Right Pleural Biopsy A Pleural, Right Description: Right Pleural Fluid Indications for procedure: This is a 25 y.o. year old female who had a first episode spontaneous pneumothorax ~3 weeks ago treated at an outside hospital with a pigtail catheter with resolution. She returned for a follow CXR and was found to have a large right pleural effusion. She reports persistent pleuritic chest pain, night sweats and flushing. CT showed a loculated basilar effusion with air in it and she is taken to the operating room for decortication. Operative procedure: The patient was taken to the operating room and placed on the table in the supine position. The patient was then turned to the left lateral decubitus position with the right chest elevated using the beanbag. The right chest was prepped and draped in the usual sterile fashion. A standard thoracoscopic camera port was created in the 8th intercostal space posterior axillary line. A working incision 3 cm in length was created in the 5th intercostal space anterior axillary line. Upon entering the chest, the entire lower half of the chest was filled fibrin and old-appearing clotted blood. The upper chest had significant adhesions to the chest wall. The entire lung was mobilized using a combination of suction and blunt dissection including the fissure, diaphragm and mediastinal surfaces. The entire lung was then decorticated. The pleural debris was sent for culture and pathology. The differential for this includes bleeding from her prior chest tube but also catamenial pneumothorax with hemothorax. The lung was inspected and there were no blebs identified. The diaphragmwas inspected and there were no diaphragm pores. There were a couple of more nodular areas on the chest wall which were biopsied with a thoracoscopic biopsy forceps. Once the lung was decorticated the entire chest was irrigated with several liters of warm saline. A 24 Lithuanian chest tube was placed through a separate stab incision and tunneled through the anterior working incision to lie anteriorly to the apex. A 24 Bhavesh drain was placed through the camera port to lie posteriorly over the diaphragm and into the posterior gutter. The lung was then reinflated and felt to adequately fill the pleural space. The anterior working incision was closed using 0 vicryl to close the pectoralis over the tube. 2-0 and 3-0 vicryl were used for subcutaneous and subcuticular suture. The double lumen tube was then changed to a single lumen tube. Flexible fiberoptic bronchoscopy wasperformed. This demonstrated normal endobronchial anatomy to the subsegmental level bilaterally without endobronchial lesions. Moderate amounts of secretions were cleared. The patient tolerated the procedure well and was transferred from the operating room to the post anesthesia care unit in stablecondition. I was present throughout the entire procedure. Submitted by: Kaylan Cao MD - 03/11/2025 * Progress Notes - Margarita Greco RN - 03/11/2025 10:36 AM EDT Case Management Adult Initial Progress Note Sarah Crane 25 y.o. female CSN: [id number] Admission: 03/10/2025 11:46 AM Primary Problem: Pleural effusion Telemarketer Supervisor reviewed chart and spoke with the patient at bedside to complete this Initial Case Management Assessment. PCP: Eliza Moser APRN Emergency Contact: Extended Emergency Contact Information Primary Emergency Contact: RoyceLydia boone Mobile Relation: Mother Insurance: Primary Visit Coverage Payer Plan Sponsor Code Group Number Group Name TEENA IBARRA [facility] [id number] Primary Visit Coverage Subscriber Subscriber ID Subscriber Name Subscriber N Subscriber Address [id number] SARAH CRANE [id number] [address] [place] [address] Patient information: Primary Caregiver: Self Support System: Immediate family Daily Living Activities: Functional Status: Independent Living Arrangements: Children Type of Residence: Private residence, Single Level [address] [address] Smoker in the Home?: N/A Current DME: Equipment Currently Used at Home: none Current DME Provider: n/a Income Information: Income Source: Employed Income/Expense Information: Income meets expenses Current Resources Utilized: None Housing Circumstances-Z Codes: Housing Circumstances (select all that apply): None Applicable Patient Referred to: Financial Resources: (n/a) Anticipated Discharge Date: tbd Patient's Discharge Goal: Patient/Family Anticipates Transition to: home Assistance Available at Discharge: Availability of Care Givers (#Hours): 24 hours Discharge Transport: Transportation Anticipated: family or friend will provide Follow Up Transport: Transportation Needed to Follow up Appoinments: Family/Friend will Provide, Self Home Health / Home Infusion / Outpatient Dialysis Services: Current DME Provider: n/a Living Will/Advance Directive/Power of Certified Nurse /Guardian: Unable to assess: Yes Have you reviewed your Advance Directive and is it valid for this stay?: Not applicable Advance Directive: Patient does not have advance directive Information Provided on Healthcare Directives: No Pre-existing DNR/DNI Order: No Patient Requests Assistance: No Additional Comments: CARMELITA CABALLERO met with patient at bedside for initial assessment and discuss role in discharge planning. Confirmed address on file. Patient lives with her child in a single level home. Patient states she was independent prior to admit. Denies DME/HH/HD/O2. PCP is Eliza Moser. Patient has [employer] Private insurance and uses [facility]. Family will assist and transport at discharge. No CM/SW needs identified. Will continue to follow and assist. Margarita Greco, RN * Significant Event - Gloria Elizalde MD - 03/11/2025 5:30 AM EDT Patient to OR today for right VATS decortication, possible pleurodesis. - H&P note at admission/most recent progress note reviewed and with no changes - The risks, benefits, indications, contraindications, and surgical alternatives were explained to the patient. Specifically, the risks of surgery, including bleeding, infection, injury to nearby organs or structures, need for additional surgery or procedures, wound complications, and complicationsof general anesthesia. Commonly associated risks of the procedure where also discussed with the patient in detail. The patient participated in the discussion and was given an opportunity to ask questions. - Written and informed consent is located in the patient's chart. - NPO since midnight Gloria Elizalde MD General Surgery PGY1 * H&P - García Chew DO - 03/10/2025 3:11 PM EDTAssociated Order(s): Inpatient consult to Thoracic Surgery Images from the original note were not included. [facility] Department of Surgery Section of Thoracic Surgery History & Physical Note Reason for Consult: Pleural effusion Requesting Service: Emergency Department Consult Date and Time: 03/10/2025 13:59 Inpatient consult to Thoracic Surgery Consult performed by: García Chew DO Consult ordered by: Radames Jane MD Reason for consult: Pleural effusion Assessment/Recommendations: Sarah Crane is a 25 y.o. female with moderate R pleural effusion afterspontaneous pneumothorax w/hospitalization and pigtail catheter insertion/removal 3 weeks ago at OSH. She has had persistent R pleuritic chest pain in her lower R chest laterally and anteriorly, associated with recent night sweats and a flushing sensation. WBC 13. CT today demonstrates moderate loculated right pleural effusion concerning for empyema. Dispo: Admit to [facility] Consent for R VATS washout/decortication tomorrow with Dr. Cao History of Present Illness: Chief Complaint: Persistent R chest pain with associated pleural effusion. Sarah Crane is a 25 y.o. female w/no significant past medical history presented to the [facility] on 03/10/2025 after CXR demonstrated moderate R pleural effusion at appointment with PCP yesterday. The patient had a spontaneous pneumothorax 3 weeks ago, for which she was admitted to an OSH for 5 days and a pigtail catheter was inserted and removed for management. A few days later 02/25/2025 the patient returned to the ED because of R chest pain. This resulted in her getting a CXR that demonstrated a small R pleural effusion. She was given some pain medication at this time. She relays that she continues to have persistent R pleuritic chest pain in her lower R chest laterally and anteriorly. This has been associated with recent night sweats and a flushing sensation. WBC is slightly elevated to 13. CT today demonstrates moderate loculated right pleural effusion concerning for empyema. Review of Systems: A 14 point review of systems was reviewed and is negative except as mentioned inthe HPI. Past Medical History: Medical History[1] Past Surgical History: Surgical History[2] Pigtail catheter insertion 3 weeks ago Allergies And Reactions: Allergies[3] Family Medical History: Family History[4] Social History: Tobacco: Tobacco Use: Low Risk (06/11/2022) Patient History Smoking Tobacco Use: Never Smokeless Tobacco Use: Never Passive Exposure: Not on file Former vaping about 5 years. Alcohol: occasional Illicit drug use: former marijuana smoking. Immunizations: Immunization History Administered Date(s) Administered [employer] COVID-19 Vaccine (Purple Cap) 12+ 12/02/2021 I have updated and confirmed the past medical, surgical, family and social history. Home Medications: Prior to Admission medications Medication Sig Start Date End Date Taking? Authorizing Provider oxyCODONE-acetaminophen (Percocet) 5-325 MG tablet TAKE 1 TABLET BY MOUTH EVERY 4 TO 6 HOURS NEEDED 06/10/22 Provider, MD Isaac Anti-Thrombotic Medications: Is this patient taking warfarin, new oral anti-coagulant, or anti-platelet medication? No If Yes, What Medication: N/A Current Hospital Medications: Current Medications[5] Objective: Visit Vitals BP 127/83 Pulse 109 Temp 36.8 ??C (98.2 ??F) (Oral) Wt 49.9 kg (110 lb) SpO2 98% BMI 18.88 kg/m?? Physical Exam: General: Alert, NAD EYES: No scleral icterus or conjunctivitis HENT: Atraumatic, normocephalic Neck: No JVD or tracheal deviation Cardiac: Hemodynamically Stable Pulmonary: No increased effort on room air, well healed incision below the second rib space on the R where pigtail catheter had previously been placed. No skin changes. Abdomen: Soft, non-distended Skin: No rashes Ext: No edema Neuro: No gross deficits Psych: Mood and affect congruent and appropriate to situation. Laboratory: CBC WBC 13.18 (H) Hb 10.3 (L) Plt 845 (H) Hct 31.6 (L) INR 1.2 (H), PTT ?? BMP Na 136 Cl 99 BUN 10 Glu 111 (H) K 4.1 Co2 26 Cr 0.47 (L) Ca 9.4 Mg ??, Phos ?? Imaging: CT Chest w IV Contrast Result Date: 03/10/2025 Large loculated right pleural effusion concerning for empyema. CRITICAL RESULT: No. COMMUNICATION: Per this written report. By electronically signing this report, I, the attending physician, attest that I have personally reviewed the images/data for the above examination(s) and agree with the finaledited report. Drafted by Laura Fernandez MD on 03/10/2025 1:54 PM Final report signed by Jeevan Horvath MD on 03/10/2025 2:43 PM XR Chest 1 View Result Date: 03/10/2025 Right effusion and a subtle atelectasis. CRITICAL RESULT: No. COMMUNICATION: Per this written report. Drafted by Jeevan Horvath MD on 03/10/2025 12:49 PM Final report signed by Jeevan Horvath MD on 03/10/2025 12:50 PM Assessment & Plan: Sarah Crane is a 25 y.o. female with moderate R pleural effusion after spontaneous pneumothorax w/hospitalization and pigtail catheter insertion/removal 3 weeks ago at OSH. She has had persistent R pleuritic chest pain in her lower R chest laterally and anteriorly, associated with recent night sweats and a flushing sensation. WBC 13. CT today demonstrates moderate loculated right pleural effusion concerning for empyema. Dispo: Admit to TSS Consent for R VATS washout/decortication tomorrow with Dr. Cao CODE STATUS: full code This Consult, Assessment, and Plan has been discussed with Dr. Cao, Attending Physician García Chew DO 03/10/25 3:13 PM [1] No past medical history on file. [2] Past Surgical History: Procedure Laterality Date WISDOM TOOTH EXTRACTION [3] No Known Allergies [4] No family history on file. [5] Current Facility-Administered Medications Medication Dose Route Frequency Provider Last Rate Last Admin azithromycin (Zithromax) 500 mg in sodium chloride 0.9% 250 mL IVPB (vial adapter required) 500 mg Intravenous q24h Radames Jane MD 275 mL/hr at 03/10/25 1449 500 mg at 03/10/25 1449 cefTRIAXone (Rocephin) 2 g in sodium chloride 0.9% 100 mL IVPB (vial adapter required) 2 g Intravenous q24h Radames Jane MD Stopped at 03/10/25 1458 Current Outpatient Medications Medication Sig Dispense Refill oxyCODONE-acetaminophen (Percocet) 5-325 MG tablet TAKE 1 TABLET BY MOUTH EVERY 4 TO 6 HOURS NEEDED Cosigned by Kaylan Cao MD at 03/11/2025 6:57 PM EDT Associated attestation - Kaylan Cao MD - 03/11/2025 6:57 PM EDT I saw and evaluated the patient with the resident/fellow. I discussed the case with the resident/fellow and agree with the findings and plan as documented. Admit, NPO after midnight for OR tomorrow for decortication. * ED Provider Notes - Lia Hilliard MD - 03/10/2025 11:21 AM EDT - HPI Chief Complaint Patient presents with Chest Pain [facility] Note Sarah Crane is a 25 y.o. female who presents to ED with chest/lung pain. Pt notes she has a spontaneous collapse of R lung 3 weeks ago. Pt states that she had a follow up yesterday in [place]. Today she was told there was fluid and poss PNA and was sent to ED. Pt had a chest tube for 3-4 days for previous lung collapse. Patient denies fever, chills, nausea, vomiting, and diarrhea. History provided by: Patient case folder used: No MAIN ED NOTE//Lia Al MD: I assumed full responsibility for this patient after transfer to Main ED from [facility]. I personally performed my own history, ROS, and physical. I agree with the above [facility] documentation with the following additions/exceptions: The patient states that 3 weeks ago she has been having a week of having trouble taking in deep breaths related to right-sided discomfort and went to the emergency department where she was found to have a right-sided pneumothorax. A required hospitalization and a chest tube. She was there for 5 days. 5 days after discharge, she started having recurrent symptoms and went to back to the emergency room when she was told that with a small around the fluid on her lung phleboliths not large enough todrain and would resolve on its NM. He presented for follow up to her PCP yesterday where she got a chest x-ray did abnormal lung sounds and blood work. Her PCP called her today and told her that it looked like that with a lot of fluid on her right lung that she might possibly have pneumonia in his should come to the ER. The patient states that she has a mild increase in pain that it was right-sided all in the lower area of her ribs. Denies any new increase in shortness of breath. Denies any a very systemic symptoms but states she thinks she might have had the chills a couple of times. Said she used to smoke but does not anymore. Denies vaping. Patient History Medical History[1] Surgical History[2] Family History[3] Social History[4] Allergies: Allergies[5] Physical Exam ED Triage Vitals [03/10/25 1125] Temp Heart Rate Resp BP 36.8 ??C (98.2 ??F) 109 20 127/83 SpO2 Temp Source Heart Rate Source Patient Position 98 % Oral -- -- BP Location FiO2 (%) -- -- Physical Exam Vitals and nursing note reviewed. Constitutional: General: She is not in acute distress. Appearance: Normal appearance. HENT: Head: Normocephalic and atraumatic. Nose: No rhinorrhea. Mouth/Throat: Mouth: Mucous membranes are moist. Pharynx: Oropharynx is clear. Eyes: General: Right eye: No discharge. Left eye: No discharge. Conjunctiva/sclera: Conjunctivae normal. Pupils: Pupils are equal, round, and reactive to light. Pulmonary: Effort: Pulmonary effort is normal. No respiratory distress. Breath sounds: No stridor. Examination of the right-upper field reveals decreased breath sounds. Examination of the right-middle field reveals decreased breath sounds. Examination of the right-lower field reveals decreased breath sounds. Decreased breath sounds present. Musculoskeletal: General: Normal range of motion. Cervical back: No rigidity. Skin: General: Skin is warm and dry. Neurological: Mental Status: She is alert and oriented to person, place, and time. Psychiatric: Mood and Affect: Mood normal. Behavior: Behavior normal. No data recorded ED Course & MDM - Assessment: 25 y.o. female presents to ED with complaint of Right-sided chest pain. It should be noted that thechronic conditions includes spontaneous pneumothorax, which currently is not at goal therapy. This complicates the clinical picture because it Comorbidities: may be exacerbating symptoms, increases the amount and complexity of data to be reviewed, and complicates the clinical workup Differential Diagnosis: recurrent pneumothorax, effusion, infection, consolidation, among other. In order to fully explore the differential diagnosis the following treatments and tests were ordered: ED Medication Administration from 03/10/2025 1121 to 03/10/2025 1509 Date/Time Order Dose Route Action 03/10/2025 1152 EDT morphine PF 4 mg 4 mg Intravenous Given 03/10/2025 1313 EDT iohexol (OMNIPaque) 300 MG/ML injection 100 mL 100 mL Intravenous Given 03/10/2025 1340 EDT cefepime (Maxipime) 2 g in sodium chloride 0.9% 100 mL IVPB (vial adapter required) -- Intravenous Canceled Entry 03/10/2025 1355 EDT cefTRIAXone (Rocephin) 2 g in sodium chloride 0.9% 100 mL IVPB (vial adapter required) 2 g Intravenous New Bag 03/10/2025 1449 EDT azithromycin (Zithromax) 500 mg in sodium chloride 0.9% 250 mL IVPB (vial adapter required) 500 mg Intravenous New Bag 03/10/2025 1458 EDT cefTRIAXone (Rocephin) 2 g in sodium chloride 0.9% 100 mL IVPB (vial adapter required) 0 g Intravenous Stopped All Other Orders Ordered Status Ordering Provider 03/10/25 1359 Consult to Thoracic Surgery Once Provider: (Not yet assigned) Acknowledged LIA HILLIARD 03/10/25 1208 Blood Culture (Aerobic/Anaerobet Set) STAT Preliminary result LIA HILLIARD 03/10/25 1140 Insert peripheral IV Continuous Acknowledged ASTER BRE F 03/10/25 1140 Hepatitis C Antibody - ED Once Final result ASTER BRE F 03/10/25 1140 ED Protocol - HIV 1/2 Antibody/Antigen Screen Once Final result BRE MAHER 03/10/25 1140 ED HIV 1/2 Antibody/Antigen Screen w/Reflex to HIV 1/2 Differentiation PROCEDURE ONCE Final result BRE MAHER 03/10/25 1140 XR Chest 1 View One time imaging Final result BRE MAHER 03/10/[address] Chest w IV Contrast Once Final result BRE MAHER 03/10/25 1140 CMP STAT Final result BRE MAHER 03/10/25 1140 CBC w/diff STAT Final result ASTER BRE F 03/10/25 1140 PT-INR STAT Final result BRE MAHER 03/10/25 1127 EKG now - STAT (adult) Once Final result RADAMES JANE ED Course as of 03/10/25 1509 SatMar 10, 2025 1149 Vitals on arrival remarkable for mild tachycardia of 1 a. Normal O2 saturation, work of breathing, x-ray right on room air. Afebrile. [JG] 1150 EKG upon arrival interpreted by me with sinus tachycardia, no ST changes or reciprocal changesconcerning for ischemia. Normal intervals. [JG] 1216 Chest x-ray personally interpreted by me with blunting of costophrenic angle on right side with what appears to be an effusion [JG] 1255 WBC(!): 13.18 [JG] 1508 Given the patient's leukocytosis and mild tachycardia, but initiate broad- spectrum antibiotic.Additionally, a personally reviewed the patient's CT chest remarkable for right-sided loculated fluid collections concerning for empyema. Given the complexity of the fluid collection, thoracic surgery was consulted for further evaluation. After their evaluation, patient will be admitted to thoracicsurgery for further interventions the per left-sided loculated empyema. [JG] ED Course User Index [JG] Lia Hilliard MD Social Determinates of Health Risks (including Economic Stability, Education and level of understanding, Healthcare access and quality and concerning social factors): None identified on this visit Ultimately, this patient was Was admitted (Admission) There were no encounter diagnoses.. Patient believed to require admission for the listed diagnoses. The thoracic surgery service was consulted for admission and was agreeable to admit to Acute Floor (Med/Surg). ED Prescriptions None - Date/Time: 03/10/2025/3:09 PM Entered by Marisabel Jean, acting as scribe for Dr. Armen Maher. Scribe Attestation: This note was dictated to me, Marisabel Jean, acting as a scribe for Dr. Armen Maher. Attending Attestation: The documentation was recorded by Marisabel Jean acting as scribe in my presence at the time of the encounter and accurately reflects the service I personally performed. [1] No past medical history on file. [2] Past Surgical History: Procedure Laterality Date WISDOM TOOTH EXTRACTION [3] No family history on file. [4] Tobacco Use Smoking status: Never Smokeless tobacco: Never Vaping Use Vaping status: Never Used [5] No Known Allergies Lia Hilliard MD Resident 03/10/25 1511 Cosigned by Radames Jane MD at 03/11/2025 5:13 AM EDT Associated attestation - Radames Jane MD - 03/11/2025 5:13 AM EDT I saw and evaluated the patient with the resident/fellow. I discussed the case with the resident/fellow and agree with the findings and plan as documented. * ED Triage Notes - Abena Ceron RN - 03/10/2025 11:21 AM EDT Collapse R lung 3 weeks ago. F/u today in clinic showed fluid and poss pna documented in this encounter Plan of Treatment Pending Results Name Type Priority Associated Diagnoses Date /Time Prepare Leukocyte Reduced RBC: 2 Units Blood Bank Routine 03/11/2025 2:23 PM EDT documented as of this encounter Procedures Procedure Name Priority Date/Time Associated Diagnosis Comments XR CHEST 1 VIEW Timed 03/15/2025 12:22 PM EDT XR CHEST 1 VIEW Routine 03/15/2025 4:25 AM EDT XR CHEST 1 VIEW Routine 03/14/2025 2:14 PM EDT XR CHEST 1 VIEW Routine 03/14/2025 3:33 AM EDT CBC W/O DIFFERENTIAL Pending Discharge 03/14/2025 3:26 AM EDT MAGNESIUM, PLASMA Pending Discharge 03/14/2025 3:26 AM EDT RENAL FUNCTION PANEL, PLASMA Pending Discharge 03/14/2025 3:26 AM EDT OXYGEN THERAPY Routine 03/13/2025 8:00 PM EDT XR CHEST 1 VIEW Timed 03/13/2025 4:23 PM EDT OXYGEN THERAPY Routine 03/13/2025 8:00 AM EDT CBC W/O DIFFERENTIAL Routine 03/13/2025 3:33 AM EDT MAGNESIUM, PLASMA Routine 03/13/2025 3:3 3 AM EDT RENAL FUNCTION PANEL, PLASMA Routine 03/13/2025 3:33 AM EDT XR CHEST 1 VIEW Routine 03/13/2025 1:33 AM EDT OXYGEN THERAPY Routine 03/12/2025 8:00 PM EDT OXYGEN THERAPY Routine 03/12/2025 8:00 AM EDT CBC W/O DIFFERENTIAL Routine 03/12/2025 3:23 AM EDT MAGNESIUM, PLASMA Routine 03/12/2025 3:2 3 AM EDT RENAL FUNCTION PANEL, PLASMA Routine 03/12/2025 3:23 AM EDT XR CHEST 1 VIEW Routine 03/12/2025 1:40 AM EDT OXYGEN THERAPY Routine 03/11/2025 8:00 PM EDT XR CHEST 1 VIEW STAT 03/11/2025 6:48 PM EDT OXYGEN THERAPY Routine 03/11/2025 5:42 PM EDT OXYGEN THERAPY Routine 03/11/2025 5:42 PM EDT OXYGEN THERAPY Routine 03/11/2025 5:42 PM EDT BODY FLUID CULTURE AND GRAM STAIN Routine 03/11/2025 5:21 PM EDT Pleural effusion SURGICAL PATHOLOGY EXAM Routine 03/11/2025 4:57 PM EDT Pleural effusion DECORTICATION, LUNG, THORACOSCOPIC 03/11/2025 3:16 PM EDT Pleural effusion POCT , URINE Routine 03/11/2025 3:00 PM EDT PREPARE RBC Routine 03/11/2025 2:23 PM EDT XR CHEST 1 VIEW Routine 03/11/2025 4:22 AM EDT CBC W/O DIFFERENTIAL Routine 03/11/2025 3:51 AM EDT MAGNESIUM, PLASMA Routine 03/11/2025 3:5 1 AM EDT RENAL FUNCTION PANEL, PLASMA Routine 03/11/2025 3:51 AM EDT TYPE AND SCREEN Routine 03/10/2025 4:[address] CHEST W IV CONTRAST STAT 1:16 PM EDT BLOOD CULTURE (AEROBIC/ANAEROBIC SET) STAT 03/10/2025 12:21 PM EDT XR CHEST 1 VIEW STAT 03/10/2025 12:15 PM EDT ED HIV 1/2 ANTIBODY/ANTIGEN SCREEN WITH REFLEX TO HIV I/II DIFFERENTIATION STAT 03/10/2025 11:45 AM EDT ED PROTOCOL HIV 1/2 ANTIBODY/ANTIGEN SCREEN W/REFLEX TO HIV 1/2 ANTIBODY DIFFERENTIATION STAT 03/10/2025 11:45 AM EDT HEPATITIS C ANTIBODY - ED W/REFLEX TO HCV QUANT PCR STAT 03/10/2025 11:45 AM EDT PROTHROMBIN TIME(PT) / INR STAT 03/10/2025 11:45 AM EDT CBC WITH AUTO DIFFERENTIAL STAT 03/10/2025 11:45 AM EDT COMPREHENSIVE METABOLIC PANEL, PLASMA STAT 03/10/2025 11:45 AM EDT ECG ADULT STAT 03/10/2025 11:31 AM EDT documented in this encounter Results * XR Chest 2 Views (03/30/2025 11:26 AM EDT) Anatomical Region Laterality Modality Chest Digital Radiogra phy Impressions 03/30/2025 1:32 PM EDT Slightly improved right-sided pleural fluid. CRITICAL RESULT: No. COMMUNICATION: Per this written report. Preliminary report signed by Ta Hughes MD on 03/30/2025 1:20 PM By electronically signing this report, I, the attending physician, attest that I have personally reviewed the images/data for the above examination(s) and agree with the final edited report. Drafted by Ta Hughes MD on 03/30/2025 1:18 PM Final report signed by Santos Gerard MD on 03/30/2025 1:32 PM Narrative 03/30/2025 1:32 PM EDT CLINICAL INDICATION: post operative thoracoscopic surgery TECHNIQUE: XR CHEST 2 VIEWS COMPARISON: 03/15/2025 FINDINGS: Stable cardiac silhouette and mediastinal contours. Small right pleural effusion/thickening, slightly decreased. No discrete pneumothorax. No consolidation. Procedure Note Santos Gerard MD - 03/30/2025 CLINICAL INDICATION: post operative thoracoscopic surgery TECHNIQUE: XR CHEST 2 VIEWS COMPARISON: 03/15/2025 FINDINGS: Stable cardiac silhouette and mediastinal contours. Small right pleuraleffusion/thickening, slightly decreased. No discrete pneumothorax. Noconsolidation. IMPRESSION: Slightly improved right-sided pleural fluid. CRITICAL RESULT: No. COMMUNICATION: Per this written report. Preliminary report signed by Ta Hughes MD on 03/30/2025 1:20 PM By electronically signing this report, I, the attending physician, attestthat I have personally reviewed the images/data for the aboveexamination(s) and agree with the final edited report. Drafted by Ta Hughes MD on 03/30/2025 1:18 PM Final report signed by Santos Gerard MD on 03/30/2025 1:32 PM us Kaylan Cao MD IMG XR PROCEDURES Final Resu lt * XR Chest 1 View (03/15/2025 12:22 PM EDT) Anatomical Region Laterality Modality Chest Digital Radiogra phy Impressions 03/15/2025 12:32 PM EDT Stable right-sided hydropneumothorax. CRITICAL RESULT: No. COMMUNICATION: Per this written report. Drafted by Ashleigh Samayoa MD on 03/15/2025 12:31 PM Final report signed by Ashleigh Samayoa MD on 03/15/2025 12:32 PM Narrative 03/15/2025 12:32 PM EDT CLINICAL INDICATION: S/p chest tube removal TECHNIQUE: XR CHEST 1 VIEW COMPARISON: Same date at 0418 hours FINDINGS: [id number] left-sided pneumothorax without change. Small right-sided pleural effusion, stable. Mild right infrahilar opacities are similar to the prior. No left-sided pleural effusion or pneumothorax. No left-sided airspace disease. Procedure Note Ashleigh Samayoa MD - 03/15/2025 CLINICAL INDICATION: S/p chest tube removal TECHNIQUE: XR CHEST 1 VIEW COMPARISON: Same date at 0418 hours FINDINGS: [id number] left-sided pneumothorax without change. Smallright-sided pleural effusion, stable. Mild right infrahilar opacities aresimilar to the prior. No left-sided pleural effusion or pneumothorax. Noleft-sided airspace disease. IMPRESSION: Stable right-sided hydropneumothorax. CRITICAL RESULT: No. COMMUNICATION: Per this written report. Drafted by Ashleigh Samayoa MD on 03/15/2025 12:31 PM Final report signed by Ashleigh Samayoa MD on 03/15/2025 12:32 PM us Jordon Orona APRN IMG XR PROCEDURES Final Res ult * XR Chest 1 View (03/15/2025 4:25 AM EDT) Anatomical Region Laterality Modality Chest Digital Radiogra phy Impressions 03/15/2025 10:00 AM EDT Interval decreased right apical pneumothorax. Otherwise stable exam. CRITICAL RESULT: No. COMMUNICATION: Per this written report. By electronically signing this report, I, the attending physician, attest that I have personally reviewed the images/data for the above examination(s) and agree with the final edited report. Drafted by Og Chavez MD on 03/15/2025 9:00 AM Final report signed by Paulo Garcia MD on 03/15/2025 10:00 AM Narrative 03/15/2025 10:00 AM EDT CLINICAL INDICATION: eval lung vergara TECHNIQUE: XR CHEST 1 VIEW COMPARISON: March 14, 2025 FINDINGS: Right chest tube in place, similar position compared to prior study. Stable cardiomediastinal silhouette. No new consolidation. Interval decreased right apical pneumothorax. Procedure Note Paulo Garcia MD - 03/15/2025 CLINICAL INDICATION: eval lung vergara TECHNIQUE: XR CHEST 1 VIEW COMPARISON: March 14, 2025 FINDINGS: Right chest tube in place, similar position compared to prior study.Stable cardiomediastinal silhouette. No new consolidation. Intervaldecreased right apical pneumothorax. IMPRESSION: Interval decreased right apical pneumothorax. Otherwise stable exam. CRITICAL RESULT: No. COMMUNICATION: Per this written report. By electronically signing this report, I, the attending physician, attestthat I have personally reviewed the images/data for the aboveexamination(s) and agree with the final edited report. Drafted by Og Chavez MD on 03/15/2025 9:00 AM Final report signed by Paulo Garcia MD on 03/15/2025 10:00 AM us Kaylan Cao MD IMG XR PROCEDURES Final Resu lt * XR Chest 1 View (03/14/2025 2:14 PM EDT) Anatomical Region Laterality Modality Chest Digital Radiogra phy Impressions 03/14/2025 3:04 PM EDT Stable exam. CRITICAL RESULT: No. COMMUNICATION: Per this written report Drafted by Silvestre Jiménez MD on 03/14/2025 3:03 PM Final report signed by Silvestre Jiménez MD on 03/14/2025 3:04 PM Narrative 03/14/2025 3:04 PM EDT CLINICAL INDICATION: S/p chest tube removal TECHNIQUE: XR CHEST 1 VIEW COMPARISON: 10 hours prior FINDINGS: The more superior right chest tube is been removed. There is a small right pneumothorax. Right basal chest tube in place. Small right pleural effusion. Procedure Note Silvestre Jiménez MD - 03/14/2025 CLINICAL INDICATION: S/p chest tube removal TECHNIQUE: XR CHEST 1 VIEW COMPARISON: 10 hours prior FINDINGS: The more superior right chest tube is been removed. There is a small rightpneumothorax. Right basal chest tube in place. Small right pleuraleffusion. IMPRESSION: Stable exam. CRITICAL RESULT: No. COMMUNICATION: Per this written report Drafted by Silvestre Jiménez MD on 03/14/2025 3:03 PM Final report signed by Silvestre Jiménez MD on 03/14/2025 3:04 PM us Kaylan Cao MD IMG XR PROCEDURES Final Resu lt * XR Chest 1 View (03/14/2025 3:33 AM EDT) Anatomical Region Laterality Modality Chest Digital Radiogra phy Impressions 03/14/2025 9:51 AM EDT No significant interval change. CRITICAL RESULT: No. COMMUNICATION: Per this written report. By electronically signing this report, I, the attending physician, attest that I have personally reviewed the images/data for the above examination(s) and agree with the final edited report. Drafted by Yulisa Kaur MD on 03/14/2025 9:26 AM Final report signed by Silvestre Jiménez MD on 03/14/2025 9:51 AM Narrative 03/14/2025 9:51 AM EDT CLINICAL INDICATION: eval lung vergara TECHNIQUE: XR CHEST 1 VIEW COMPARISON: 03/13/2025 FINDINGS: Unchanged position of right apical and basilar chest tubes. Stable cardiac mediastinal silhouette. Unchanged small right pleural effusion/thickening with small volume of pleural gas. Bibasilar atelectasis. Procedure Note Silvestre Jiménez MD - 03/14/2025 CLINICAL INDICATION: eval lung vergara TECHNIQUE: XR CHEST 1 VIEW COMPARISON: 03/13/2025 FINDINGS: Unchanged position of right apical and basilar chest tubes. Stable cardiacmediastinal silhouette. Unchanged small right pleural effusion/thickeningwith small volume of pleural gas. Bibasilar atelectasis. IMPRESSION: No significant interval change. CRITICAL RESULT: No. COMMUNICATION: Per this written report. By electronically signing this report, I, the attending physician, ariadna I have personally reviewed the images/data for the aboveexamination(s) and agree with the final edited report. Drafted by Yulisa Kaur MD on 03/14/2025 9:26 AM Final report signed by Silvestre Jiménez MD on 03/14/2025 9:51 AM us Kaylan Cao MD IMG XR PROCEDURES Final Resu lt * (ABNORMAL) Renal function panel (03/14/2025 3:26 AM EDT) Glucose, Plasma 116(H) 74 - 99 mg/dL 03/14/2025 4:24 AM EDT [facility] BUN, Plasma 8 7 - 21 mg/dL 03/14/2025 4:24 AM EDT [facility] Creatinine, Plasma 0.49(L) 0.60 - 1.10 mg/dL 03/14/2025 4:24 AM EDT [facility] BUN/Creatinine Ratio 16 03/14/2025 4:24 AM EDT [facility] Sodium, Plasma 137 136 - 145 mmol/L 03/14/2025 4:24 AM EDT [facility] Potassium, Plasma 3.6 3.6 - 4.9 mmol/L 03/14/2025 4:24 AM EDT [facility] Chloride, Plasma 102 97 - 107 mmol/L 03/14/2025 4:24 AM EDT [facility] CO2, Plasma 28 22 - 29 mmol/L 03/14/2025 4:24 AM EDT [facility] Anion Gap 7 6 - 16 mmol/L 03/14/2025 4:24 AM EDT [facility] Total Calcium, Plasma 8.9 8.9 - 10.2 mg/dL 03/14/2025 4:24 AM EDT [facility] Phosphorus, Plasma 4.7(H) 2.5 - 4.5 mg/dL 03/14/2025 4:24 AM EDT [facility] Albumin, Plasma 3.1(L) 3.5 - 5.2 g/dL 03/14/2025 4:24 AM EDT [facility] eGFRcr 136.0 mL/min/1.7 3m*2 03/14/2025 4:24 AM EDT [facility] Comment:Reported eGFRcr in m L/min/1.73m2 is based the CKD-EPI 2020 equation that does not use a race coefficient. Blood Venous blood specimen / Unknown Venipuncture / Unknown 03/14/2025 3:26 AM EDT 03/14/2025 3:48 AM EDT us Kaylan Cao MD LAB BLOOD ORDERABLES Final R esult Performing Organization Address City/[facility]/ZIP Co de Phone Number [facility] [address] [place] [address] * Magnesium (03/14/2025 3:26 AM EDT) Magnesium, Plasma 1.9 1.9 - 2.4 mg/dL 03/14/2025 4:24 AM EDT [facility] Blood Venous blood specimen / Unknown Venipuncture / Unknown 03/14/2025 3:26 AM EDT 03/14/2025 3:48 AM EDT Kaylan Cao MD LAB BLOOD ORDERABLES Final R esult [facility] [address] [place] [address] * (ABNORMAL) CBC W/O Differential (03/14/2025 3:26 AM EDT) WBC Count 10.78(H) 3.70 - 10.30 10*3/uL LAB HEMATOLOGY METHOD 03/14/2025 3:55 AM EDT [facility] RBC Count 3.49(L) 3.90 - 5.20 10*6/uL LAB HEMATOLOGY METHOD 03/14/2025 3:55 AM EDT [facility] HGB 10.2(L) 11.2 - 15.7 g/dL LAB HEMATOLOGY METHOD 03/14/2025 3:55 AM EDT [facility] HCT 32.9(L) 34.0 - 45.0 % LAB HEMATOLOGY METHOD 03/14/2025 3:55 AM EDT [facility] Platelet Count 668(H) 155 - 369 10*3/uL LAB HEMATOLOGY METHOD 03/14/2025 3:55 AM EDT [facility] MCV 94 79 - 98 fL LAB HEMATOLOGY METHOD 03/14/2025 3:55 AM EDT [facility] MCH 29.2 26.0 - 32.0 pg LAB HEMATOLOGY METHOD 03/14/2025 3:55 AM EDT [facility] MCHC 31.0 30.7 - 35.5 g/dL LAB HEMATOLOGY METHOD 03/14/2025 3:55 AM EDT [facility] RDW 12.5 11.5 - 14.5 % LAB HEMATOLOGY METHOD 03/14/2025 3:55 AM EDT [facility] MPV 8.8 8.8 - 12.5 fL LAB HEMATOLOGY METHOD 03/14/2025 3:55 AM EDT [facility] nRBC 0.0 <=0.0 per 100 WBCs LAB HEMATOLOGY METHOD 03/14/2025 3:55 AM EDT [facility] Blood Venous blood specimen / Unknown Venipuncture / Unknown 03/14/2025 3:26 AM EDT 03/14/2025 3:48 AM EDT us Kaylan Cao MD LAB BLOOD ORDERABLES Final R esult [facility] [address] [place] [address] * XR Chest 1 View (03/13/2025 4:23 PM EDT) Anatomical Region Laterality Modality Chest Digital Radiogra phy Impressions 03/13/2025 5:02 PM EDT No interval change. CRITICAL RESULT: No. COMMUNICATION: Per this written report. Drafted by Julieta Millan MD on 03/13/2025 4:58 PM Final report signed by Julieta Millan MD on 03/13/2025 5:02 PM Narrative 03/13/2025 5:02 PM EDT CLINICAL INDICATION: Chest tube water sealed TECHNIQUE: XR CHEST 1 VIEW COMPARISON: 03/13/2025. FINDINGS: Right apical and basilar chest tubes remain in place. Small right pleural effusion versus pleural thickening and and small volume pleural gas. Basilar atelectasis. Stable cardiac silhouette. Procedure Note Julieta Millan MD - 03/13/2025 CLINICAL INDICATION: Chest tube water sealed TECHNIQUE: XR CHEST 1 VIEW COMPARISON: 03/13/2025. FINDINGS: Right apical and basilar chest tubes remain in place. Small right pleuraleffusion versus pleural thickening and and small volume pleural gas.Basilar atelectasis. Stable cardiac silhouette. IMPRESSION: No interval change. CRITICAL RESULT: No. COMMUNICATION: Per this written report. Drafted by Julieta Millan MD on 03/13/2025 4:58 PM Final report signed by Julieta Millan MD on 03/13/2025 5:02 PM us Kaylan Cao MD IMG XR PROCEDURES Final Resu lt * (ABNORMAL) Renal function panel (03/13/2025 3:33 AM EDT) Glucose, Plasma 119(H) 74 - 99 mg/dL 03/13/2025 4:23 AM EDT [facility] BUN, Plasma 7 7 - 21 mg/dL 03/13/2025 4:23 AM EDT [facility] Creatinine, Plasma 0.53(L) 0.60 - 1.10 mg/dL 03/13/2025 4:23 AM EDT [facility] BUN/Creatinine Ratio 13 03/13/2025 4:23 AM EDT [facility] Sodium, Plasma 139 136 - 145 mmol/L 03/13/2025 4:23 AM EDT [facility] Potassium, Plasma 3.9 3.6 - 4.9 mmol/L 03/13/2025 4:23 AM EDT [facility] Chloride, Plasma 102 97 - 107 mmol/L 03/13/2025 4:23 AM EDT [facility] CO2, Plasma 29 22 - 29 mmol/L 03/13/2025 4:23 AM EDT [facility] Anion Gap 8 6 - 16 mmol/L 03/13/2025 4:23 AM EDT [facility] Total Calcium, Plasma 8.9 8.9 - 10.2 mg/dL 03/13/2025 4:23 AM EDT [facility] Phosphorus, Plasma 4.1 2.5 - 4.5 mg/dL 03/13/2025 4:23 AM EDT [facility] Albumin, Plasma 2.9(L) 3.5 - 5.2 g/dL 03/13/2025 4:23 AM EDT [facility] eGFRcr 133.5 mL/min/1.7 3m*2 03/13/2025 4:23 AM EDT [facility] Comment:Reported eGFRcr in m L/min/1.73m2 is based the CKD-EPI 2020 equation that does not use a race coefficient. Blood Venous blood specimen / Unknown Venipuncture / Unknown 03/13/2025 3:33 AM EDT 03/13/2025 3:50 AM EDT us Kaylan Cao MD LAB BLOOD ORDERABLES Final R esult [facility] [address] [place] [address] * Magnesium (03/13/2025 3:33 AM EDT) Magnesium, Plasma 2.1 1.9 - 2.4 mg/dL 03/13/2025 4:23 AM EDT [facility] Blood Venous blood specimen / Unknown Venipuncture / Unknown 03/13/2025 3:33 AM EDT 03/13/2025 3:50 AM EDT us Kaylan Cao MD LAB BLOOD ORDERABLES Final R esult [facility] [address] [place] [address] * (ABNORMAL) CBC W/O Differential (03/13/2025 3:33 AM EDT) WBC Count 14.97(H) 3.70 - 10.30 10*3/uL LAB HEMATOLOGY METHOD 03/13/2025 4:07 AM EDT [facility] RBC Count 3.02(L) 3.90 - 5.20 10*6/uL LAB HEMATOLOGY METHOD 03/13/2025 4:07 AM EDT [facility] HGB 9.1(L) 11.2 - 15.7 g/dL LAB HEMATOLOGY METHOD 03/13/2025 4:07 AM EDT [facility] HCT 28.1(L) 34.0 - 45.0 % LAB HEMATOLOGY METHOD 03/13/2025 4:07 AM EDT [facility] Platelet Count 638(H) 155 - 369 10*3/uL LAB HEMATOLOGY METHOD 03/13/2025 4:07 AM EDT [facility] MCV 93 79 - 98 fL LAB HEMATOLOGY METHOD 03/13/2025 4:07 AM EDT [facility] MCH 30.1 26.0 - 32.0 pg LAB HEMATOLOGY METHOD 03/13/2025 4:07 AM EDT [facility] MCHC 32.4 30.7 - 35.5 g/dL LAB HEMATOLOGY METHOD 03/13/2025 4:07 AM EDT [facility] RDW 12.0 11.5 - 14.5 % LAB HEMATOLOGY METHOD 03/13/2025 4:07 AM EDT [facility] MPV 9.1 8.8 - 12.5 fL LAB HEMATOLOGY METHOD 03/13/2025 4:07 AM EDT [facility] nRBC 0.0 <=0.0 per 100 WBCs LAB HEMATOLOGY METHOD 03/13/2025 4:07 AM EDT [facility] Blood Venous blood specimen / Unknown Venipuncture / Unknown 03/13/2025 3:33 AM EDT 03/13/2025 3:53 AM EDT us Kaylan Cao MD LAB BLOOD ORDERABLES Final R esult [facility] [address] [place] [address] * XR Chest 1 View (03/13/2025 1:33 AM EDT) Anatomical Region Laterality Modality Chest Digital Radiogra phy Impressions 03/13/2025 5:45 AM EDT Stable exam. CRITICAL RESULT: No. COMMUNICATION: Per this written report Drafted by Silvestre Jiménez MD on 03/13/2025 5:44 AM Final report signed by Silvestre Jiménez MD on 03/13/2025 5:45 AM Narrative 03/13/2025 5:45 AM EDT CLINICAL INDICATION: pleural effusion TECHNIQUE: XR CHEST 1 VIEW COMPARISON: 23 hours prior FINDINGS: Right chest tubes in place. Small amount of right-sided pleural fluid/thickening and small volume of right-sided pleural air, similar to prior. Right basal probable atelectasis is similar prior. No new consolidation. Procedure Note Silvestre Jiménez MD - 03/13/2025 CLINICAL INDICATION: pleural effusion TECHNIQUE: XR CHEST 1 VIEW COMPARISON: 23 hours prior FINDINGS: Right chest tubes in place. Small amount of right-sided pleuralfluid/thickening and small volume of right-sided pleural air, similar toprior. Right basal probable atelectasis is similar prior. No newconsolidation. IMPRESSION: Stable exam. CRITICAL RESULT: No. COMMUNICATION: Per this written report Drafted by Silvestre Jiménez MD on 03/13/2025 5:44 AM Final report signed by Silvestre Jiménez MD on 03/13/2025 5:45 AM us Kaylan Cao MD IMG XR PROCEDURES Final Resu lt * (ABNORMAL) Renal function panel (03/12/2025 3:23 AM EDT) Glucose, Plasma 164(H) 74 - 99 mg/dL 03/12/2025 4:36 AM EDT [facility] BUN, Plasma 8 7 - 21 mg/dL 03/12/2025 4:36 AM EDT [facility] Creatinine, Plasma 0.48(L) 0.60 - 1.10 mg/dL 03/12/2025 4:36 AM EDT [facility] BUN/Creatinine Ratio 17 03/12/2025 4:36 AM EDT [facility] Sodium, Plasma 139 136 - 145 mmol/L 03/12/2025 4:36 AM EDT [facility] Potassium, Plasma 4.6 3.6 - 4.9 mmol/L 03/12/2025 4:36 AM EDT [facility] Chloride, Plasma 101 97 - 107 mmol/L 03/12/2025 4:36 AM EDT [facility] CO2, Plasma 23 22 - 29 mmol/L 03/12/2025 4:36 AM EDT [facility] Anion Gap 15 6 - 16 mmol/L 03/12/2025 4:36 AM EDT [facility] Total Calcium, Plasma 9.7 8.9 - 10.2 mg/dL 03/12/2025 4:36 AM EDT [facility] Phosphorus, Plasma 4.8(H) 2.5 - 4.5 mg/dL 03/12/2025 4:36 AM EDT [facility] Albumin, Plasma 3.6 3.5 - 5.2 g/dL 03/12/2025 4:36 AM EDT [facility] eGFRcr 136.7 mL/min/1.7 3m*2 03/12/2025 4:36 AM EDT [facility] Comment:Reported eGFRcr in m L/min/1.73m2 is based the CKD-EPI 2020 equation that does not use a race coefficient. Blood Venous blood specimen / Unknown Venipuncture / Unknown 03/12/2025 3:23 AM EDT 03/12/2025 4:03 AM EDT us Kaylan Cao MD LAB BLOOD ORDERABLES Final R esult [facility] [address] [place] [address] * Magnesium (03/12/2025 3:23 AM EDT) Magnesium, Plasma 2.2 1.9 - 2.4 mg/dL 03/12/2025 4:36 AM EDT [facility] Blood Venous blood specimen / Unknown Venipuncture / Unknown 03/12/2025 3:23 AM EDT 03/12/2025 4:03 AM EDT us Kaylan Cao MD LAB BLOOD ORDERABLES Final R esult [facility] [address] [place] [address] * (ABNORMAL) CBC W/O Differential (03/12/2025 3:23 AM EDT) Pathologist [facility] WBC Count 20.78(H) 3.70 - 10.30 10*3/uL LAB HEMATOLOGY METHOD 03/12/2025 4:01 AM EDT [facility] RBC Count 3.99 3.90 - 5.20 10*6/uL LAB HEMATOLOGY METHOD 03/12/2025 4:01 AM EDT [facility] HGB 11.8 11.2 - 15.7 g/dL LAB HEMATOLOGY METHOD 03/12/2025 4:01 AM EDT [facility] HCT 36.7 34.0 - 45.0 % LAB HEMATOLOGY METHOD 03/12/2025 4:01 AM EDT [facility] Platelet Count 898(H) 155 - 369 10*3/uL LAB HEMATOLOGY METHOD 03/12/2025 4:01 AM EDT [facility] MCV 92 79 - 98 fL LAB HEMATOLOGY METHOD 03/12/2025 4:01 AM EDT [facility] MCH 29.6 26.0 - 32.0 pg LAB HEMATOLOGY METHOD 03/12/2025 4:01 AM EDT [facility] MCHC 32.2 30.7 - 35.5 g/dL LAB HEMATOLOGY METHOD 03/12/2025 4:01 AM EDT [facility] RDW 11.9 11.5 - 14.5 % LAB HEMATOLOGY METHOD 03/12/2025 4:01 AM EDT [facility] MPV 9.0 8.8 - 12.5 fL LAB HEMATOLOGY METHOD 03/12/2025 4:01 AM EDT [facility] nRBC 0.0 <=0.0 per 100 WBCs LAB HEMATOLOGY METHOD 03/12/2025 4:01 AM EDT [facility] Blood Venous blood specimen / Unknown Venipuncture / Unknown 03/12/2025 3:23 AM EDT 03/12/2025 3:55 AM EDT us Kaylan Cao MD LAB BLOOD ORDERABLES Final R esult [facility] [address] [place] [address] * XR Chest 1 View (03/12/2025 1:40 AM EDT) Anatomical Region Laterality Modality Chest Digital Radiogra phy Impressions 03/12/2025 8:22 AM EDT Persistent trace right basal pneumothorax. CRITICAL RESULT: No. COMMUNICATION: Per this written report. By electronically signing this report, I, the attending physician, attest that I have personally reviewed the images/data for the above examination(s) and agree with the final edited report. Drafted by Og Chavez MD on 03/12/2025 7:36 AM Final report signed by Santos Gerard MD on 03/12/2025 8:22 AM Narrative 03/12/2025 8:22 AM EDT CLINICAL INDICATION: pleural effusion TECHNIQUE: XR CHEST 1 VIEW COMPARISON: March 11, 2025 FINDINGS: Persistent right apical and right basal chest tube. Stable cardiomediastinal silhouette. Right basal atelectasis. Persistent trace right basal pneumothorax. No pleural effusion. Procedure Note Santos Gerard MD - 03/12/2025 CLINICAL INDICATION: pleural effusion TECHNIQUE: XR CHEST 1 VIEW COMPARISON: March 11, 2025 FINDINGS: Persistent right apical and right basal chest tube. Stablecardiomediastinal silhouette. Right basal atelectasis. Persistent traceright basal pneumothorax. No pleural effusion. IMPRESSION: Persistent trace right basal pneumothorax. CRITICAL RESULT: No. COMMUNICATION: Per this written report. By electronically signing this report, I, the attending physician, attestthat I have personally reviewed the images/data for the aboveexamination(s) and agree with the final edited report. Drafted by Og Chavez MD on 03/12/2025 7:36 AM Final report signed by Santos Gerard MD on 03/12/2025 8:22 AM Kaylan Cao MD IMG XR PROCEDURES Final Resu lt * XR Chest 1 View (03/11/2025 6:48 PM EDT) Anatomical Region Laterality Modality Chest Digital Radiogra phy Impressions 03/11/2025 7:06 PM EDT Decreased right pleural effusion. Question of trace left basilar pneumothorax. Right basilar opacities favoring atelectasis. CRITICAL RESULT: No. COMMUNICATION: Per this written report. Drafted by Julieta Millan MD on 03/11/2025 7:05 PM Final report signed by Julieta Millan MD on 03/11/2025 7:06 PM Narrative 03/11/2025 7:06 PM EDT CLINICAL INDICATION: Post procedure TECHNIQUE: XR CHEST 1 VIEW COMPARISON: 03/11/2025. FINDINGS: Interval placement of two right-sided chest tubes positioned in the apex and along the lung base. Decreased right pleural effusion. There may be trace basilar pneumothorax. Right basilar opacities. Stable cardiac silhouette. Procedure Note Julieta Millan MD - 03/11/2025 CLINICAL INDICATION: Post procedure TECHNIQUE: XR CHEST 1 VIEW COMPARISON: 03/11/2025. FINDINGS: Interval placement of two right-sided chest tubes positioned in the apexand along the lung base. Decreased right pleural effusion. There may betrace basilar pneumothorax. Right basilar opacities. Stable cardiacsilhouette. IMPRESSION: Decreased right pleural effusion. Question of trace left basilarpneumothorax. Right basilar opacities favoring atelectasis. CRITICAL RESULT: No. COMMUNICATION: Per this written report. Drafted by Julieta Millan MD on 03/11/2025 7:05 PM Final report signed by Julieta Millan MD on 03/11/2025 7:06 PM Kaylan Cao MD IMG XR PROCEDURES Final Resu lt * (ABNORMAL) Body Fluid Culture and Gram Stain (03/11/2025 5:21 PM EDT) Culture Light Growth 03/14/2025 7:03 AM EDT [facility] Culture Staphylococcus epidermidis(A) SELENE 03/14/2025 7:03 AM EDT [facility] Comment: This isolate has been identified using the FDA Approved Training [employer] [place] System The organism value for this result has been updated. These results have been appended to the previously preliminary verified report. Gram Stain Result Few Polymorphonuclear leukocytes 03/14/2025 7:03 AM EDT [facility] Gram Stain Result No organisms seen 03/14/2025 7:03 AM EDT [facility] Body Fluid Structure of right pleural cavity / Unknown Non-blood Collection / Unknown 03/11/2025 5:21 PM EDT 03/11/2025 5:48 PM EDT Comment:Pre-op diagnosis: Pleural effusion [J90] Narrative Organism Antibiotic Method Susceptibility Staphylococcus epidermidis Clindamycin SELENE <=0.5 ug/ml: Susceptible Staphylococcus epidermidis Daptomycin SELENE <=1 ug/ml: Susceptible Staphylococcus epidermidis Erythromycin SELENE >4 ug/ml: Resistant Staphylococcus epidermidis Gentamicin SELENE <=1 ug/ml: Susceptible Staphylococcus epidermidis Linezolid SELENE 2 ug/ml: Susceptible Staphylococcus epidermidis Minocycline SELENE <=1 ug/ml: Susceptible Staphylococcus epidermidis Oxacillin SELENE >1 ug/ml: Resistant Staphylococcus epidermidis Penicillin G SELENE >1 ug/ml: Resistant Staphylococcus epidermidis Tetracycline SELENE 8 ug/ml: Intermediate Staphylococcus epidermidis Vancomycin SELENE 2 ug/ml: Susceptible us Kaylan Cao MD LAB MICROBIOLOGY - GENERAL O RDERABLES Final Result [facility] [address] [place] [address] * Surgical Pathology Exam (03/11/2025 4:57 PM EDT) Case Report Surgical Pathology Case: [id number] Authorizing Provider: Kaylan Cao MD Collected: 03/11/2025 1657 Ordering Location: [facility] Received: 03/12/2025 0853 Pathologist: Goyo Haque MD Specimen: Other (specify site), Right Pleural Biopsy 03/16/2025 11:09 AM EDT [facility] Final Diagnosis A. RIGHT PLEURAL, BIOPSY: - GRANULATION TISSUE, INFLAMMATION WITH PIGMENT LADEN MACROPHAGES AND REACTIVE CHANGES ( CLINICAL HISTORY OF EMPYEMA WITH PNEUMOTHORAX) 03/16/2025 11:09 AM EDT [facility] at 1108 EDT Clinical Information Pleural effusion [J90] 03/16/2025 11:09 AM EDT [facility] Gross Description A. RIGHT PLEURAL BIOPSY Received in formalin labeled right pleura biopsy , are 3 pink-red soft tissue fragments that range from 0.7-1.2 cm in greatest dimension. Entirely submitted in cassette A1. Cold Time: 15h 16m Cristel Prado 03/16/2025 11:09 AM EDT [facility] Note: A resident was involved in the service. I attest I examined the relevant preparations for the specimens and confirmed the diagnosis or interpretation. 03/16/2025 11:09 AM EDT [facility] Tissue Topography unknown / Unknown 03/11/2025 4:57 PM EDT 03/12/2025 8:13 AM EDT Comment:Pre-op diagnosis: Pleural effusion [J90] us Kaylan Cao MD LAB PATHOLOGY ORDERABLES Fin al Result [facility] [address] [place] [address] * POCT , URINE (03/11/2025 3:00 PM EDT) POCT Test, Urine Negative Males and Non- Females: Negative 03/11/2025 3:06 PM EDT [facility] Palletiser Operator ID Kellee Hughesrema Hartman 03/11/2025 3:06 PM EDT [facility] Device ID [id number] 03/11/2025 3:06 PM EDT [facility] Urine Urine specimen obtained by clean catch procedure / Unknown 03/11/2025 3:00 PM EDT 03/11/2025 3:06 PM EDT Kaylan Cao MD LAB POINT OF CARE TE ST DOCKED DEVICE UNSOLICITED RESULTS Final Result [facility] [address] [place] [address] * XR Chest 1 View (03/11/2025 4:22 AM EDT) Anatomical Region Laterality Modality Chest Digital Radiogra phy Impressions 03/11/2025 8:18 AM EDT Stable right effusion with associated basilar atelectasis. CRITICAL RESULT: No. COMMUNICATION: Per this written report. Drafted by Santos Gerard MD on 03/11/2025 8:18 AM Final report signed by Santos Gerard MD on 03/11/2025 8:18 AM Narrative 03/11/2025 8:18 AM EDT CLINICAL INDICATION: pleural effusion TECHNIQUE: XR CHEST 1 VIEW COMPARISON: 03/10/2025 FINDINGS: Moderate right pleural effusion is stable. No airspace disease in the aerated lungs. No pulmonary edema. No pneumothorax. Heart and mediastinal contours are within normal limits. Procedure Note Santos Gerard MD - 03/11/2025 CLINICAL INDICATION: pleural effusion TECHNIQUE: XR CHEST 1 VIEW COMPARISON: 03/10/2025 FINDINGS: Moderate right pleural effusion is stable. No airspace disease in theaerated lungs. No pulmonary edema. No pneumothorax. Heart and mediastinalcontours are within normal limits. IMPRESSION: Stable right effusion with associated basilar atelectasis. CRITICAL RESULT: No. COMMUNICATION: Per this written report. Drafted by Santos Gerard MD on 03/11/2025 8:18 AM Final report signed by Santos Gerard MD on 03/11/2025 8:18 AM Kaylan Cao MD IMG XR PROCEDURES Final Resu lt * (ABNORMAL) Renal function panel (03/11/2025 3:51 AM EDT) Glucose, Plasma 106(H) 74 - 99 mg/dL 03/11/2025 4:35 AM EDT [facility] BUN, Plasma 7 7 - 21 mg/dL 03/11/2025 4:35 AM EDT [facility] Creatinine, Plasma 0.50(L) 0.60 - 1.10 mg/dL 03/11/2025 4:35 AM EDT [facility] BUN/Creatinine Ratio 14 03/11/2025 4:35 AM EDT [facility] Sodium, Plasma 135(L) 136 - 145 mmol/L 03/11/2025 4:35 AM EDT [facility] Potassium, Plasma 4.0 3.6 - 4.9 mmol/L 03/11/2025 4:35 AM EDT [facility] Chloride, Plasma 103 97 - 107 mmol/L 03/11/2025 4:35 AM EDT [facility] CO2, Plasma 24 22 - 29 mmol/L 03/11/2025 4:35 AM EDT [facility] Anion Gap 8 6 - 16 mmol/L 03/11/2025 4:35 AM EDT [facility] Total Calcium, Plasma 8.9 8.9 - 10.2 mg/dL 03/11/2025 4:35 AM EDT [facility] Phosphorus, Plasma 4.1 2.5 - 4.5 mg/dL 03/11/2025 4:35 AM EDT [facility] Albumin, Plasma 3.1(L) 3.5 - 5.2 g/dL 03/11/2025 4:35 AM EDT [facility] eGFRcr 135.3 mL/min/1.7 3m*2 03/11/2025 4:35 AM EDT [facility] Comment:Reported eGFRcr in m L/min/1.73m2 is based the CKD-EPI 2020 equation that does not use a race coefficient. Blood Venous blood specimen / Unknown Venipuncture / Unknown 03/11/2025 3:51 AM EDT 03/11/2025 3:57 AM EDT us Kaylan Cao MD LAB BLOOD ORDERABLES Final R esult [facility] [address] [place] [address] * Magnesium (03/11/2025 3:51 AM EDT) Magnesium, Plasma 2.2 1.9 - 2.4 mg/dL 03/11/2025 4:35 AM EDT [facility] Blood Venous blood specimen / Unknown Venipuncture / Unknown 03/11/2025 3:51 AM EDT 03/11/2025 3:57 AM EDT us Kaylan Cao MD LAB BLOOD ORDERABLES Final R esult [facility] [address] [place] [address] * (ABNORMAL) CBC W/O Differential (03/11/2025 3:51 AM EDT) Pathologist [facility] WBC Count 9.63 3.70 - 10.30 10*3/uL LAB HEMATOLOGY METHOD 03/11/2025 4:18 AM EDT [facility] RBC Count 3.13(L) 3.90 - 5.20 10*6/uL LAB HEMATOLOGY METHOD 03/11/2025 4:18 AM EDT [facility] HGB 9.5(L) 11.2 - 15.7 g/dL LAB HEMATOLOGY METHOD 03/11/2025 4:18 AM EDT [facility] HCT 29.0(L) 34.0 - 45.0 % LAB HEMATOLOGY METHOD 03/11/2025 4:18 AM EDT [facility] Platelet Count 654(H) 155 - 369 10*3/uL LAB HEMATOLOGY METHOD 03/11/2025 4:18 AM EDT [facility] MCV 93 79 - 98 fL LAB HEMATOLOGY METHOD 03/11/2025 4:18 AM EDT [facility] MCH 30.4 26.0 - 32.0 pg LAB HEMATOLOGY METHOD 03/11/2025 4:18 AM EDT [facility] MCHC 32.8 30.7 - 35.5 g/dL LAB HEMATOLOGY METHOD 03/11/2025 4:18 AM EDT [facility] RDW 12.1 11.5 - 14.5 % LAB HEMATOLOGY METHOD 03/11/2025 4:18 AM EDT [facility] MPV 9.2 8.8 - 12.5 fL LAB HEMATOLOGY METHOD 03/11/2025 4:18 AM EDT [facility] nRBC 0.0 <=0.0 per 100 WBCs LAB HEMATOLOGY METHOD 03/11/2025 4:18 AM EDT [facility] Blood Venous blood specimen / Unknown Venipuncture / Unknown 03/11/2025 3:51 AM EDT 03/11/2025 3:57 AM EDT Kaylan Cao MD LAB BLOOD ORDERABLES Final R esult Performing Organization Address [facility] Co de Phone Number [facility] [address] [place] [address] * Type and screen (03/10/2025 4:28 PM EDT) ABO/Rh O Positive 03/10/2025 3:14 PM EDT BLOOD BANK Antibody Screen Negative 03/10/2025 3:14 PM EDT BLO[facility] Specimen Expiration 03/13/2025 23:59 03/10/2025 3:14 PM EDT BLOOD BANK Blood Venous blood specimen / Unknown Venipuncture / Unknown 03/10/2025 4:28 PM EDT 03/10/2025 4:41 PM EDT us Kaylan Cao MD LAB BLOOD BANK TEST ORDERABL ES Final Result Performing Organization Address [facility] de Phone Number BLOOD BANK [address] [place] [address], [place] * CT Chest w IV Contrast (03/10/2025 1:16 PM EDT) Anatomical Region Laterality Modality Chest Computed Tomogra phy Impressions 03/10/2025 2:43 PM EDT Large loculated right pleural effusion concerning for empyema. CRITICAL RESULT: No. COMMUNICATION: Per this written report. By electronically signing this report, I, the attending physician, attest that I have personally reviewed the images/data for the above examination(s) and agree with the final edited report. Drafted by Laura Fernandez MD on 03/10/2025 1:54 PM Final report signed by Jeevan Horvath MD on 03/10/2025 2:43 PM Narrative 03/10/2025 2:43 PM EDT CLINICAL INDICATION: history of PTX s/p chest tube removed a few weeks ago with recurrent chest pain TECHNIQUE: Imaging of the chest was performed, from thoracic inlet through upper abdomen, using spiral technique, following administration of IV contrast, Omnipaque 300, 100 mL according to the [address] Chest protocol. Total DLP (Dose-Length Product): 106.74 mGy.cm. Please note: The reported value represents the total of one or more individual components during the CT acquisition on this date and at this time, and as such, the same value may appear in more than one CT report depending on the interpreting/reporting physicians. COMPARISON: Same day chest radiograph FINDINGS: Chest: Aorta/Vessels: The thoracic aorta is unremarkable. No large central filling defect within the pulmonary arteries to suggest pulmonary embolism. Pleural/Pericardial Space: No pneumothorax. Loculated right pleural effusion with fluid and foci of air surrounded by a thin enhancing rim. Some associated right lower lobe atelectasis. No pericardial effusion. Lymph Nodes: No lymphadenopathy within the chest. Lungs: Posterior right lower lobe calcified granuloma. No focal airspace consolidation. Right lower lobe density most likely represents atelectasis associated with pleural effusion. Mediastinum: Limited due to motion artifact, but otherwise unremarkable. Chest Wall: No chest wall hematoma or contusion. Bones: No acute fracture within the chest. Upper Abdomen: Unremarkable. Procedure Note Jeevan Horvtah MD - 03/10/2025 CLINICAL INDICATION: history of PTX s/p chest tube removed a few weeks ago with recurrent chestpain TECHNIQUE: Imaging of the chest was performed, from thoracic inlet through upperabdomen, using spiral technique, following administration of IV contrast,Omnipaque 300, 100 mL according to the CT Chest protocol. Total DLP (Dose-Length Product): 106.74 mGy.cm. Please note: The reportedvalue represents the total of one or more individual components during theCT acquisition on this date and at this time, and as such, the same valuemay appear in more than one CT report depending on theinterpreting/reporting physicians. COMPARISON: Same day chest radiograph FINDINGS: Chest: Aorta/Vessels: The thoracic aorta is unremarkable. No large centralfilling defect within the pulmonary arteries to suggest pulmonaryembolism. Pleural/Pericardial Space: No pneumothorax. Loculated right pleuraleffusion with fluid and foci of air surrounded by a thin enhancing rim.Some associated right lower lobe atelectasis. No pericardial effusion. Lymph Nodes: No lymphadenopathy within the chest. Lungs: Posterior right lower lobe calcified granuloma. No focal airspaceconsolidation. Right lower lobe density most likely represents atelectasisassociated with pleural effusion. Mediastinum: Limited due to motion artifact, but otherwise unremarkable. Chest Wall: No chest wall hematoma or contusion. Bones: No acute fracture within the chest. Upper Abdomen: Unremarkable. IMPRESSION: Large loculated right pleural effusion concerning for empyema. CRITICAL RESULT: No. COMMUNICATION: Per this written report. By electronically signing this report, I, the attending physician, attestthat I have personally reviewed the images/data for the aboveexamination(s) and agree with the final edited report. Drafted by Laura Fernandez MD on 03/10/2025 1:54 PM Final report signed by Jeevan Horvath MD on 03/10/2025 2:43 PM us Bre Maher MD IMG CT PROCEDURES Final Res ult * Blood Culture (Aerobic/Anaerobet Set) (03/10/2025 12:21 PM EDT) Culture No growth at day 5 03/15/2025 2:02 PM EDT [facility] Blood Structure of antecubital vein / Unknown Venipuncture / Unknown 03/10/2025 12:21 PM EDT 03/10/2025 12:35 PM EDT Narrative [facility] - 03/15/2025 2:02 PM EDT Low blood volume submitted, results may be compromised us Radames Jane MD LAB MICROBIOLOGY - GENE RAL ORDERABLES Final Result [facility] [address] [place] [address] * XR Chest 1 View (03/10/2025 12:15 PM EDT) Anatomical Region Laterality Modality Chest Computed Radiogr aphy Impressions 03/10/2025 12:50 PM EDT Right effusion and a subtle atelectasis. CRITICAL RESULT: No. COMMUNICATION: Per this written report. Drafted by Jeevan Horvath MD on 03/10/2025 12:49 PM Final report signed by Jeevan Horvath MD on 03/10/2025 12:50 PM Narrative 03/10/2025 12:50 PM EDT CLINICAL INDICATION: chest pain TECHNIQUE: Frontal view of the chest. COMPARISON: None. FINDINGS: Right pleural effusion and basilar atelectasis. The left lung is clear. The cardiac silhouette, mediastinum and pulmonary vascularity are unremarkable. No evidence of pneumothorax or pleural effusion. The osseous structures are unremarkable. Procedure Note Jeevan Horvath MD - 03/10/2025 CLINICAL INDICATION: chest pain TECHNIQUE: Frontal view of the chest. COMPARISON: None. FINDINGS: Right pleural effusion and basilar atelectasis. The left lung is clear.The cardiac silhouette, mediastinum and pulmonary vascularity areunremarkable. No evidence of pneumothorax or pleural effusion. Theosseous structures are unremarkable. IMPRESSION: Right effusion and a subtle atelectasis. CRITICAL RESULT: No. COMMUNICATION: Per this written report. Drafted by Jeevan Horvath MD on 03/10/2025 12:49 PM Final report signed by Jeevan Horvath MD on 03/10/2025 12:50 PM Bre Maher MD IMG XR PROCEDURES Final Res ult * ED HIV 1/2 Antibody/Antigen Screen w/Reflex to HIV 1/2 Differentiation (03/10/2025 11:45 AM EDT) HIV 1 & 2 Antibody/Antigen Screen Non Reactive Non Reactive 03/10/2025 12:55 PM EDT [facility] Comment:Screening for HIV 1 & 2 antibodies, and P24 antigen is NONREACTIVE. No confirmatory testing is required. Blood Venous blood specimen / Unknown Venipuncture / Unknown 03/10/2025 11:45 AM EDT 03/10/2025 12:05 PM EDT us Bre Maher MD LAB BLOOD ORDERABLES Final Result [facility] [address] [place] [address] * Hepatitis C Antibody - ED (03/10/2025 11:45 AM EDT) Pathologist [facility] Hepatitis C Antibody Negative Negative 03/10/2025 12:57 PM EDT [facility] Blood Venous blood specimen / Unknown Venipuncture / Unknown 03/10/2025 11:45 AM EDT 03/10/2025 12:05 PM EDT Bre Maher MD LAB BLOOD ORDERABLES Final Result Performing Organization Address [facility] Co de Phone Number [facility] [address] [place] [address] * (ABNORMAL) PT-INR (03/10/2025 11:45 AM EDT) [facility] Prothrombin Time 15.0(H) 12.0 - 14.3 sec 03/10/2025 12:13 PM EDT [facility] INR 1.2(H) 0.9 - 1.1 03/10/2025 12:13 PM EDT [facility] Blood Venous blood specimen / Unknown Venipuncture / Unknown 03/10/2025 11:45 AM EDT 03/10/2025 11:55 AM EDT Narrative [facility] - 03/10/2025 12:13 PM EDT OPTIMAL INR RANGES FOR PATIENT ON ORAL ANTICOAGULANT THERAPY Prevention of venous thromboembolism INR 2.0 to 3.0 In patients with heart disease: Atrial fibrillation INR 2.0 to 3.0 Valvular heart disease INR 2.0 to 3.0 Tissue heart valves INR 2.0 to 3.0 Mechanical prosthetic valves INR 2.5 to 3.5 Prevention of recurrent ID INR 2.5 to 3.5 us Bre Maher MD LAB BLOOD ORDERABLES Final Result Performing Organization Address City/[facility]/ZIP Co de Phone Number [facility] [address] [place] [address] * (ABNORMAL) CBC w/diff (03/10/2025 11:45 AM EDT) [facility] WBC Count 13.18(H) 3.70 - 10.30 10*3/uL LAB HEMATOLOGY METHOD 03/10/2025 12:26 PM EDT [facility] RBC Count 3.43(L) 3.90 - 5.20 10*6/uL LAB HEMATOLOGY METHOD 03/10/2025 12:26 PM EDT [facility] HGB 10.3(L) 11.2 - 15.7 g/dL LAB HEMATOLOGY METHOD 03/10/2025 12:26 PM EDT [facility] HCT 31.6(L) 34.0 - 45.0 % LAB HEMATOLOGY METHOD 03/10/2025 12:26 PM EDT [facility] Platelet Count 845(H) 155 - 369 10*3/uL LAB HEMATOLOGY METHOD 03/10/2025 12:26 PM EDT [facility] MCV 92 79 - 98 fL LAB HEMATOLOGY METHOD 03/10/2025 12:26 PM EDT [facility] MCH 30.0 26.0 - 32.0 pg LAB HEMATOLOGY METHOD 03/10/2025 12:26 PM EDT [facility] MCHC 32.6 30.7 - 35.5 g/dL LAB HEMATOLOGY METHOD 03/10/2025 12:26 PM EDT [facility] RDW 11.9 11.5 - 14.5 % LAB HEMATOLOGY METHOD 03/10/2025 12:26 PM EDT [facility] MPV 9.1 8.8 - 12.5 fL LAB HEMATOLOGY METHOD 03/10/2025 12:26 PM EDT [facility] nRBC 0.0 <=0.0 per 100 WBCs LAB HEMATOLOGY METHOD 03/10/2025 12:26 PM EDT [facility] Differential Type Automated LAB HEMATOLOGY METHOD 03/10/2025 12:26 PM EDT [facility] Neutrophils % 76 % LAB HEMATOLOGY METHOD 03/10/2025 12:26 PM EDT [facility] Lymphocytes % 14 % LAB HEMATOLOGY METHOD 03/10/2025 12:26 PM EDT [facility] Monocytes % 7 % LAB HEMATOLOGY METHOD 03/10/2025 12:26 PM EDT [facility] Eosinophils % 1 % LAB HEMATOLOGY METHOD 03/10/2025 12:26 PM EDT [facility] Basophils % 1 % LAB HEMATOLOGY METHOD 03/10/2025 12:26 PM EDT [facility] Immature Granulocytes % 1 % LAB HEMATOLOGY METHOD 03/10/2025 12:26 PM EDT [facility] Neutrophils Absolute 10.12(H) 1.60 - 6.10 10*3/uL LAB HEMATOLOGY METHOD 03/10/2025 12:26 PM EDT [facility] Lymphocytes Absolute 1.87 1.20 - 3.90 10*3/uL LAB HEMATOLOGY METHOD 03/10/2025 12:26 PM EDT [facility] Monocytes Absolute 0.95(H) 0.30 - 0.90 10*3/uL LAB HEMATOLOGY METHOD 03/10/2025 12:26 PM EDT [facility] Eosinophils Absolute 0.07 0.00 - 0.50 10*3/uL LAB HEMATOLOGY METHOD 03/10/2025 12:26 PM EDT [facility] Basophils Absolute 0.09 0.00 - 0.10 10*3/uL LAB HEMATOLOGY METHOD 03/10/2025 12:26 PM EDT [facility] Immature Granulocytes Absolute 0.08(H) 0.00 - 0.06 10*3/uL LAB HEMATOLOGY METHOD 03/10/2025 12:26 PM EDT [facility] Blood Venous blood specimen / Unknown Venipuncture / Unknown 03/10/2025 11:45 AM EDT 03/10/2025 11:55 AM EDT Narrative [facility] - 03/10/2025 12:26 PM EDT Therapeutic decision making should be based on absolute values, rather than percentages. us Bre Maher MD LAB BLOOD ORDERABLES Final Result [facility] [address] [place] [address] * (ABNORMAL) CMP (03/10/2025 11:45 AM EDT) Glucose, Plasma 111(H) 74 - 99 mg/dL 03/10/2025 12:20 PM EDT [facility] BUN, Plasma 10 7 - 21 mg/dL 03/10/2025 12:20 PM EDT [facility] Creatinine, Plasma 0.47(L) 0.60 - 1.10 mg/dL 03/10/2025 12:20 PM EDT [facility] BUN/Creatinine Ratio 21 03/10/2025 12:20 PM EDT [facility] Sodium, Plasma 136 136 - 145 mmol/L 03/10/2025 12:20 PM EDT [facility] Potassium, Plasma 4.1 3.6 - 4.9 mmol/L 03/10/2025 12:20 PM EDT [facility] Chloride, Plasma 99 97 - 107 mmol/L 03/10/2025 12:20 PM EDT [facility] CO2, Plasma 26 22 - 29 mmol/L 03/10/2025 12:20 PM EDT [facility] Anion Gap 11 6 - 16 mmol/L 03/10/2025 12:20 PM EDT [facility] Total Calcium, Plasma 9.4 8.9 - 10.2 mg/dL 03/10/2025 12:20 PM EDT [facility] Total Protein 7.9 6.3 - 7.9 g/dL 03/10/2025 12:20 PM EDT [facility] Albumin, Plasma 3.5 3.5 - 5.2 g/dL 03/10/2025 12:20 PM EDT [facility] AST, Plasma 31 10 - 35 U/L 03/10/2025 12:20 PM EDT [facility] ALT, Plasma 46(H) 10 - 35 U/L 03/10/2025 12:20 PM EDT [facility] Alkaline Phosphatase, Plasma 110(H) 35 - 104 U/L 03/10/2025 12:20 PM EDT [facility] Total Bilirubin, Plasma 0.3 0.2 - 1.1 mg/dL 03/10/2025 12:20 PM EDT [facility] eGFRcr 137.4 mL/min/1.7 3m*2 03/10/2025 12:20 PM EDT [facility] Comment:Reported eGFRcr in m L/min/1.73m2 is based the CKD-EPI 2020 equation that does not use a race coefficient. Blood Venous blood specimen / Unknown Venipuncture / Unknown 03/10/2025 11:45 AM EDT 03/10/2025 11:55 AM EDT us Bre Maher MD LAB BLOOD ORDERABLES Final Result [facility] [address] [place] [address] * EKG now - STAT (adult) (03/10/2025 11:31 AM EDT) EKG DIAGNOSIS CLASS Borderline Normal MUSE ECG Ventricular Rate 112 BPM MUSE ECG Atrial Rate 112 BPM MUSE ECG CO Interval 130 ms MUSE ECG QRSD Interval 70 ms MUSE ECG QT Interval 312 ms MUSE ECG QTC Interval 425 ms MUSE ECG P [place] 75 degrees MUSE ECG R [place] 88 degrees MUSE ECG T Wave [place] 31 degrees MUSE ECG Diagnosis Sinus tachycardia MUSE ECG Diagnosis Otherwise normal ECG MUSE ECG Diagnosis MUSE ECG Diagnosis Confirmed by Amador Lockhart ([id number]) on 03/10/2025 11:50:04 AM MUSE ECG 03/10/2025 11:3 1 AM EDT 03/10/2025 11:50 AM EDT us Radames Jane MD ECG ORDERABLES Final R esult MUSE ECG documented in this encounter Visit Diagnoses Diagnosis Pleural effusion- Primary Unspecified pleural effusion Pleural effusion Unspecified pleural effusion Empyema lung (CMS/HCC) Empyema without mention of fistula Spontaneous pneumothorax Other spontaneous pneumothorax Anemia Unspecified anemia Empyema lung (CMS/HCC) Empyema without mention of fistula BMI less than 19,adult Pleural effusion Unspecified pleural effusion documented in this encounter Admitting Diagnoses Diagnosis Pleural effusion Unspecified pleural effusion Empyema lung (CMS/HCC) Empyema without mention of fistula documented in this encounter Administered Medications Inactive Administered Medications - up to 3 most recent administrations Medication Order MAR Action Action Date Dose Rate Site acetaminophen (Tylenol) tablet 1,000 mg 1,000 mg, Oral, Once as needed, 1 dose, Starting on Denice 03/11/25 at 1714, Until Denice 03/11/25 at 1754, Routine, Recovery (Phase I only), pain score of >1 out of 10 Given 03/11/2025 5:54 PM EDT 1,000 mg acetaminophen (Tylenol) tablet 1,000 mg 1,000 mg, Oral, Every 6 hours scheduled, First dose on Sat03/11/25 at 1830, Until Discontinued, Routine, Recovery(Phase II-Outpatient)/On Unit(Inpatient) Given 03/12/2025 6:00 AM EDT 1,000 mg Given 03/11/2025 11:32 PM EDT 1,000 mg acetaminophen (Tylenol) tablet 1,000 mg 1,000 mg, Oral, Every 8 hours scheduled, First dose (after last modification) on Sat03/12/25 at 1400, Until Discontinued, Routine, Recovery(Phase II-Outpatient)/On Unit(Inpatient) Given 03/15/2025 3:08 PM EDT 1,000 mg Given 03/15/2025 5:12 AM EDT 1,000 mg Given 03/14/2025 9:37 PM EDT 1,000 mg acetaminophen (Tylenol) tablet 650 mg 650 mg, Oral, Every 6 hours PRN, Starting on Sat03/10/25 at 2022, Until Sat03/11/25 at 0634, Routine, mild pain Given 03/10/2025 8:40 PM EDT 650 mg ampicillin-sulbactam (Unasyn) 3 g in sodium chloride 0.9% 100 mL IVPB (vial adapter required) 3 g, Intravenous, Every 6 hours scheduled, First dose on Sat03/11/25 at 0730, Until Discontinued, Routine New Bag 03/12/2025 3:23 AM EDT 3 g 220 mL/hr New Bag 03/11/2025 9:44 PM EDT 3 g 220 mL/hr New Bag 03/11/2025 8:11 AM EDT 3 g 220 mL/hr azithromycin (Zithromax) 500 mg in sodium chloride 0.9% 250 mL IVPB (vial adapter required) 500 mg, Intravenous, Every 24 hours, First dose on Sat03/10/25 at 1355, Until Discontinued, STAT New Bag 03/10/2025 2:49 PM EDT 500 mg 275 mL/hr bisacodyl (Dulcolax) suppository 10 mg 10 mg, Rectal, Daily PRN, Starting on 03/11/25 at 1742, Until Sat03/15/25 at 1852, Routine, Recovery(Phase II-Outpatient)/On Unit(Inpatient), constipation Given 03/14/2025 8:02 AM EDT 10 mg Given 03/13/2025 9:28 PM EDT 10 mg cefTRIAXone (Rocephin) 2 g in sodium chloride 0.9% 100 mL IVPB (vial adapter required) 2 g, Intravenous, Every 24 hours, First dose on Sat03/10/25 at 1355, Until Discontinued, STAT New Bag 03/10/2025 1:55 PM EDT 2 g 220 mL/hr dextrose 5 % and lactated Ringer's infusion 42 mL/hr, Intravenous, Continuous, Starting on Sat03/11/25 at 0005, Until Sat03/12/25 at 0632, Routine New Bag 03/11/2025 6:01 PM EDT 42 mL/hr 42 mL/ hr New Bag 03/11/2025 12:02 AM EDT 42 mL/hr 42 mL/hr droperidol (Inapsine) injection 0.625 mg 0.625 mg, Intravenous, Once as needed, 1 dose, Starting on Sat03/11/25 at 1714, Until Sat03/11/25 at 1755, Routine, Recovery (Phase I only), nausea, vomiting Given 03/11/2025 5:55 PM EDT 0.625 mg enoxaparin (Lovenox) syringe 30 mg 30 mg, Subcutaneous, Daily, First dose on Sat03/12/25 at 1500, Until Discontinued, Routine Given 03/15/2025 8:05 AM EDT 30 mg Left Upper Arm (Back ) Given 03/14/2025 8:03 AM EDT 30 mg Ri ght Upper Arm (Back) Given 03/13/2025 9:16 AM EDT 30 mg Ri ght Lower Abdomen fentaNYL (Sublimaze) injection 50 mcg 50 mcg, Intravenous, Every 5 min PRN, 4 doses, Starting on Sat03/11/25 at 1714, Until Sat03/11/25 at 2043, Routine, Recovery (Phase I only), pain score of 3-4 out of 10 Given 03/11/2025 6:05 PM EDT 50 mcg heparin (porcine) injection 5,000 Units 5,000 Units, Subcutaneous, Every 8 hours scheduled, First dose on Sat03/10/25 at 1525, Until Discontinued, Routine Given 03/11/2025 6:19 AM EDT 5,000 Units Left Upper Abdomen Given 03/10/2025 9:09 PM EDT 5,000 Units R ight Upper Abdomen heparin (porcine) injection 5,000 Units 5,000 Units, Subcutaneous, Every 8 hours scheduled, First dose on Denice 03/11/25 at 2200, Until Discontinued, Routine, Recovery(Phase II-Outpatient)/On Unit(Inpatient) Given 03/12/2025 6:00 AM EDT 5,000 Units Right Upper Arm (Back) Given 03/11/2025 9:44 PM EDT 5,000 Units L eft Lower Abdomen HYDROmorphone (Dilaudid) injection 0.5 mg 0.5 mg, Intravenous, Every 10 min PRN, 2 doses, Starting on Sat03/11/25 at 1714, Until Sat03/11/25 at 1932, Routine, Recovery (Phase I only), pain score of 9-10 out of 10 Given 03/11/2025 7:32 PM EDT 0.5 mg Given 03/11/2025 5:55 PM EDT 0.5 mg HYDROmorphone (Dilaudid) injection 0.5 mg 0.5 mg, Intravenous, Every 2 hour PRN, Starting on Sat03/12/25 at 0056, Until Sat03/12/25 at 0824, Routine, severe pain Given 03/12/2025 6:00 AM EDT 0.5 mg Given 03/12/2025 1:10 AM EDT 0.5 mg HYDROmorphone (Dilaudid) injection 0.5 mg 0.5 mg, Intravenous, Every 2 hour PRN, Starting on Sat03/12/25 at 0824, Until Sat03/15/25 at 1852, Routine, severe pain refractory to oxycodone (7-10 on the numeric pain scale) Given 03/13/2025 4:13 PM EDT 0.5 mg Given 03/12/2025 10:12 PM EDT 0.5 mg Given 03/12/2025 2:20 PM EDT 0.5 mg iohexol (OMNIPaque) 300 MG/ML injection 100 mL 100 mL, Intravenous, Once in imaging, 1 dose, Starting on Sat03/10/25 at 1217, Until Sat03/10/25 at 1313, Routine, Imaging Protocol Orders Given 03/10/2025 1:13 PM EDT 100 mL ipratropium-albuterol (Duo-Neb) 0.5-2.5 mg/3 mL nebulizer solution 3 mL 3 mL, Nebulization, Every 4 hours scheduled, First dose on [facility] 03/11/25 at 2000, Until Discontinued, Routine, Recovery(Phase II-Outpatient)/On Unit(Inpatient) Given 03/13/2025 8:12 AM EDT 3 mL Given 03/13/2025 3:24 AM EDT 3 mL Given 03/12/2025 11:33 PM EDT 3 mL ipratropium-albuterol (Duo-Neb) 0.5-2.5 mg/3 mL nebulizer solution 3 mL 3 mL, Nebulization, Every 6 hours RT, First dose (after last modification) on [facility] 03/13/25 at 1500, Until Discontinued, Routine, Recovery(Phase II-Outpatient)/On Unit(Inpatient) Given 03/15/2025 2:50 AM EDT 3 mL Given 03/14/2025 8:17 PM EDT 3 mL Given 03/14/2025 2:59 PM EDT 3 mL ketamine (Ketalar) injection 10 mg 10 mg, Intravenous, Once, 1 dose, On Denice 03/11/25 at 1815, Routine, Recovery (Phase I only) Given 03/11/2025 5:55 PM EDT 10 mg lidocaine (Lidoderm) 5 % patch 1 patch 1 patch, Apply externally, Daily, First dose on [facility] 03/11/25 at 1830, Until Discontinued, Administer over 12 Hours, Routine Medication Applied 03/15/2025 8:05 AM EDT 1 patch Back Medication Applied 03/14/2025 8:04 AM EDT 1 patch Back Medication Applied 03/13/2025 9:15 AM EDT 1 patch Other methocarbamol (Robaxin) tablet 500 mg 500 mg, Oral, Every 6 hours scheduled, First dose on [facility] 03/11/25 at 1830, Until Discontinued, Routine, Recovery(Phase II-Outpatient)/On Unit(Inpatient) Given 03/12/2025 11:10 AM EDT 500 mg Given 03/12/2025 6:00 AM EDT 500 mg Given 03/11/2025 11:32 PM EDT 500 mg methocarbamol (Robaxin) tablet 750 mg 750 mg, Oral, Every 6 hours scheduled, First dose (after last modification) on Sat03/12/25 at 1815, Until Discontinued, Routine, Recovery(Phase II-Outpatient)/On Unit(Inpatient) Given 03/15/2025 11:18 AM EDT 750 mg Given 03/15/2025 5:12 AM EDT 750 mg Given 03/14/2025 11:22 PM EDT 750 mg morphine PF 4 mg 4 mg, Intravenous, Once, 1 dose, On Sat03/10/25 at 1145, STAT Given 03/10/2025 11:52 AM EDT 4 mg ondansetron (Zofran) injection 4 mg 4 mg, Intravenous, Every 6 hours PRN, Starting on Sat03/14/25 at 0003, Until Sat03/15/25 at 1852, Routine, vomiting, nausea ondansetron ODT (Zofran-ODT) disintegrating tablet 4 mg 4 mg, Oral, Every 6 hours PRN, Starting on Sat03/14/25 at 0003, Until Sat03/15/25 at 1852, Routine, nausea, vomiting Given 03/14/2025 12:23 PM EDT 4 mg Given 03/14/2025 12:47 AM EDT 4 mg oxyCODONE (Roxicodone) immediate release tablet 10 mg 10 mg, Oral, Once as needed, 2 doses, Starting on Sat03/11/25 at 1714, Until Sat03/11/25 at 2043, Routine, Recovery (Phase I only), pain score of 6-8 out of 10 Given 03/11/2025 5:54 PM EDT 10 mg oxyCODONE (Roxicodone) immediate release tablet 10 mg 10 mg, Oral, Every 4 hours PRN, Starting on Sat03/11/25 at 1742, Until Sat03/12/25 at 0634, Routine, Recovery(Phase II-Outpatient)/On Unit(Inpatient), severe pain Given 03/12/2025 3: 24 AM EDT 10 mg Given 03/11/2025 9:44 PM EDT 10 mg oxyCODONE (Roxicodone) immediate release tablet 10 mg 10 mg, Oral, Every 4 hours PRN, Starting on Sat03/12/25 at 0633, Until Sat03/15/25 at 1852, Routine, Recovery(Phase II-Outpatient)/On Unit(Inpatient), severe pain (7-10 on the numeric pain scale) Given 03/15/2025 3:08 PM EDT 10 mg Given 03/15/2025 11:18 AM EDT 10 mg Given 03/15/2025 5:12 AM EDT 10 mg oxyCODONE (Roxicodone) immediate release tablet 5 mg 5 mg, Oral, Every 4 hours PRN, Starting on Sat03/12/25 at 0633, Until Sat03/15/25 at 1852, Routine, Recovery(Phase II-Outpatient)/On Unit(Inpatient), moderate pain (4-6 on the numeric pain scale) pantoprazole (Protonix) EC tablet 40 mg 40 mg, Oral, Daily, First dose on Denice 03/11/25 at 1830, Until Discontinued, Routine, Recovery(Phase II-Outpatient)/On Unit(Inpatient) Given 03/15/2025 8:05 AM EDT 40 mg Given 03/14/2025 8:04 AM EDT 40 mg Given 03/13/2025 9:18 AM EDT 40 mg potassium chloride CR (Klor-Con) ER tablet 40 mEq 40 mEq, Oral, Once, 1 dose, On Sat03/14/25 at 0730, Routine Given 03/14/2025 8:02 AM EDT 40 mEq Povidone-Iodine 5 % swab solution 1 Application Nasal, Once, 1 dose, On Sat03/11/25 at 1515, Routine Given 03/11/2025 3:18 PM EDT 1 Application senna-docusate (Melina-Colace) 8.6-50 MG per tablet 2 tablet 2 tablet, Oral, 2 times daily, First dose on Sat03/11/25 at 2100, Until Discontinued, Routine, Recovery(Phase II-Outpatient)/On Unit(Inpatient) Given 03/15/2025 8:05 AM EDT 2 tablets Given 03/14/2025 8:02 AM EDT 2 tablets Given 03/13/2025 9:27 PM EDT 2 tablets sodium chloride 0.9 % flush 10 mL 10 mL, Intravenous, Every 12 hours, First dose on Sat03/10/25 at 1525, Until Discontinued, Routine Given 03/14/2025 3:30 PM EDT 10 mL Given 03/14/2025 3:23 AM EDT 10 mL Given 03/13/2025 4:13 PM EDT 10 mL documented in this encounter Active and Recently Administered Medications Times are shown in EDT. Scheduled Medication Order 03/13/2025 03/14/2025 03/15/2025 acetaminophen (Tylenol) tablet 1,000 mg 1,000 mg, Oral, Every 8 hours scheduled, First dose (after last modification) on Sat03/12/25 at 1400, Until Discontinued, Routine, Recovery(Phase II-Outpatient)/On Unit(Inpatient) 0519 (Given - Provider: Latoya Huitron)1303 (Given - Provider: Carie Maradiaga RN)2127 (Given - Provider: Latoya Huitron) 0549 (Given - Provider: Latoya Huitron)1500 (Given - Provider: Carie Maradiaga RN)2137 (Given - Provider: Latoya Huitron) 0512 (Given - Provider: Latoya Huitron)1508 (Given - Provider: Carie Maradiaga, CARMELITA) enoxaparin (Lovenox) syringe 30 mg 30 mg, Subcutaneous, Daily, First dose on Sat03/12/25 at 1500, Until Discontinued, Routine 0916 (Given - Provider: Carie Maradiaga RN) 0803 (Given - Provider: Carie Maradiaga RN) 0805 (Given - Provider: Carie Maradiaga, CARMELITA) ipratropium-albuterol (Duo-Neb) 0.5-2.5 mg/3 mL nebulizer solution 3 mL (CANCELED) 3 mL, Nebulization, Every 4 hours scheduled, First dose on Sat03/11/25 at 2000, Until Discontinued, Routine, Recovery(Phase II-Outpatient)/On Unit(Inpatient) 0324 (Given - Provider: Keena Moody)0812 (Given - Provider: Hamlet Cast) ipratropium-albuterol (Duo-Neb) 0.5-2.5 mg/3 mL nebulizer solution 3 mL 3 mL, Nebulization, Every 6 hours RT, First dose (after last modification) on 03/13/25 at 1500, Until Discontinued, Routine, Recovery(Phase II-Outpatient)/On Unit(Inpatient) 1404 (Given - Provider: Hamlet Cast)2031 (Given - Provider: Nelson Betancourt) 0305 (Given - Provider: Nelson Betancourt)0842 (Given - Provider: Isidro Wang)1459 (Given - Provider: Isidro Wang)2017 (Given - Provider: Nelson Betancourt) 0250 (Given - Provider: Nelson Betancourt)0900 (Canceled Entry - Provider: Automatic Discharge Provider - Comment: Automatically canceled at discontinue of medication order)1500 (Canceled Entry - Provider: Automatic Discharge Provider - Comment: Automatically canceled at discontinue of medication order) lidocaine (Lidoderm) 5 % patch 1 patch 1 patch, Apply externally, Daily, First dose on Denice 03/11/25 at 1830, Until Discontinued, Administer over 12 Hours, Routine 0915 (Medication Applied - Provider: Carie Maradiaga RN - Comment: Right Shoulder)2049 (Medication Removed - Provider: Latoya Huitron) 0804 (Medication Applied - Provider: Carie Maradiaga RN)2056 (Medication Removed - Provider: Latoya Huitron) 0805 (Medication Applied - Provider: Carie Maradiaga RN)1652 (Due: Medication Removed - Provider: Automatic Discharge Provider - Comment: Time automatically adjusted from order being discontinued) methocarbamol (Robaxin) tablet 750 mg 750 mg, Oral, Every 6 hours scheduled, First dose (after last modification) on Sat03/12/25 at 1815, Until Discontinued, Routine, Recovery(Phase II-Outpatient)/On Unit(Inpatient) 0519 (Given - Provider: Latoya Huitron)1300 (Given - Provider: Carie Maradiaga RN)1722 (Given - Provider: Carie Maradiaga RN)2338 (Given - Provider: Latoya Huitron) 0549 (Given - Provider: Latoya Huitron)1210 (Given - Provider: Carie Maradiaga RN)1723 (Given - Provider: Carie Maradiaga RN)2322 (Given - Provider: Latoya Huitron) 0512 (Given - Provider: Latoya Huitron)1118 (Given - Provider: Carie Maradiaga, CARMELITA)1800 (Canceled Entry - Provider: Automatic Discharge Provider - Comment: Automatically canceled at discontinue of medication order) pantoprazole (Protonix) EC tablet 40 mg 40 mg, Oral, Daily, First dose on Sat03/11/25 at 1830, Until Discontinued, Routine, Recovery(Phase II-Outpatient)/On Unit(Inpatient) 0918 (Given - Provider: Carie Maradiaga RN) 0804 (Given - Provider: Carie Maradiaga, CARMELITA) 0805 (Given - Provider: Carie Maradiaga, RN) potassium chloride CR (Klor-Con) ER tablet 40 mEq (COMPLETED) 40 mEq, Oral, Once, 1 dose, On Sat03/14/25 at 0730, Routine 0802 (Given - Provider: Carie Maradiaga, CARMELITA) senna-docusate (Melina-Colace) 8.6-50 MG per tablet 2 tablet 2 tablet, Oral, 2 times daily, First dose on Sat03/11/25 at 2100, Until Discontinued, Routine, Recovery(Phase II-Outpatient)/On Unit(Inpatient) 0916 (Given - Provider: Carie Maradiaga RN)2127 (Given - Provider: Latoya Huitron) 0802 (Given - Provider: Carie Mraadiaga, CARMELITA)2137 (Not Given - Provider: Latoya Huitron - Reason: Patient/family refused) 0805 (Given - Provider: Carie Maradiaga, CARMELITA) sodium chloride 0.9 % flush 10 mL (CANCELED)(Linked Group 1) 10 mL, Intravenous, Every 12 hours, First dose on Sat03/10/25 at 1525, Until Discontinued, Routine 0333 (Given - Provider: Latoya Huitron)1613 (Given - Provider: Carie Maradiaga, CARMELITA) 0323 (Given - Provider: Latoya Huitron)1530 (Given - Provider: Carie Maradiaga, CARMELITA) PRN Medication Order 03/13/2025 03/14/2025 03/15/2025 bisacodyl (Dulcolax) suppository 10 mg 10 mg, Rectal, Daily PRN, Starting on Sat03/11/25 at 1742, Until Sat03/15/25 at 1852, Routine, Recovery(Phase II-Outpatient)/On Unit(Inpatient), constipation 2127 (Given - Provider: Latoya Huitron) 0802 (Given - Provider: Carie Maradiaga, CARMELITA) HYDROmorphone (Dilaudid) injection 0.5 mg 0.5 mg, Intravenous, Every 2 hour PRN, Starting on Sat03/12/25 at 0824, Until Sat03/15/25 at 1852, Routine, severe pain refractory to oxycodone (7-10 on the numeric pain scale) 1613 (Given - Provider: Carie Maradiaga, CARMELITA) ondansetron (Zofran) injection 4 mg(Linked Group 2) 4 mg, Intravenous, Every 6 hours PRN, Starting on Sat03/14/25 at 0003, Until Sat03/15/25 at 1852, Routine, vomiting, nausea 0047 (See Alternative - Provider: Latoya Huitron)1223 (See Alternative - Provider: Jhoana Taveras, RN) ondansetron ODT (Zofran-ODT) disintegrating tablet 4 mg(Linked Group 2) 4 mg, Oral, Every 6 hours PRN, Starting on Sat03/14/25 at 0003, Until Sat03/15/25 at 1852, Routine, nausea, vomiting 0047 (Given - Provider: Latoya Huitron)1223 (Given - Provider: Jhoana Taveras, RN) oxyCODONE (Roxicodone) immediate release tablet 10 mg(Linked Group 3) 10 mg, Oral, Every 4 hours PRN, Starting on Sat03/12/25 at 0633, Until Sat03/15/25 at 1852, Routine, Recovery(Phase II-Outpatient)/On Unit(Inpatient), severe pain (7-10 on the numeric pain scale) 0519 (Given - Provider: Latoya Huitron)0916 (Given - Provider: Carie Maradiaga, CARMELITA)1303 (Given - Provider: Carie Maradiaga, CARMELITA)1722 (Given - Provider: Carie Maradiaga, RN)2127 (Given - Provider: Latoya Huitron) 0323 (Given - Provider: Latoya Huitron)0803 (Given - Provider: Carie Maradiaga, CARMELITA)1210 (Given - Provider: Cariefatmata Maradiaga RN)1723 (Given - Provider: Carie Maradiaga RN)2137 (Given - Provider: Latoya Huitron) 0512 (Given - Provider: Latoya Huitron)1118 (Given - Provider: Carie Maradiaga RN)1508 (Given - Provider: Carie Maradiaga RN) oxyCODONE (Roxicodone) immediate release tablet 5 mg(Linked Group 3) 5 mg, Oral, Every 4 hours PRN, Starting on Sat03/12/25 at 0633, Until Sat03/15/25 at 1852, Routine, Recovery(Phase II-Outpatient)/On Unit(Inpatient), moderate pain (4-6 on the numeric pain scale) 0519 (See Alternative - Provider: Latoya Huitron)0916 (See Alternative - Provider: Carie Maradiaga RN)1303 (See Alternative - Provider: Carie Maradiaga RN)1722 (See Alternative - Provider: Carie Maradiaga RN)2127 (See Alternative - Provider: Latoya Huitron) 0323 (See Alternative - Provider: Latoya Huitron)0803 (See Alternative - Provider: Carie Maradiaga RN)1210 (See Alternative - Provider: Carie Maradiaga RN)1723 (See Alternative - Provider: Carie Maradiaga RN)2137 (See Alternative - Provider: Latoya Huitron) 0512 (See Alternative - Provider: Latoya Huitron)1118 (See Alternative - Provider: Carie Maradiaga RN)1508 (See Alternative - Provider: Carie Maradiaga RN) Linked Groups Order Group 1: Insert peripheral IV (COMPLETED) Once, On Sat03/10/25 at 1521, For 1 occurrence And Saline lock IV (COMPLETED) Once, On Sat03/10/25 at 1521, For 1 occurrence And sodium chloride 0.9 % flush 10 mL (CANCELED)Jump to med 10 mL, Intravenous, Every 12 hours, First dose on Sat03/10/25 at 1525, Until Discontinued, Routine And sodium chloride 0.9 % flush 10 mL (CANCELED) 10 mL, Intravenous, As needed, Starting on Sat03/10/25 at 1521, Until Sat03/14/25 at 1941, Routine, line care Group 2: ondansetron ODT (Zofran-ODT) disintegrating tablet 4 mgJump to med 4 mg, Oral, Every 6 hours PRN, Starting on Sat03/14/25 at 0003, Until Sat03/15/25 at 1852, Routine, nausea, vomiting Or ondansetron (Zofran) injection 4 mgJump to med 4 mg, Intravenous, Every 6 hours PRN, Starting on Sat03/14/25 at 0003, Until Sat03/15/25 at 1852, Routine, vomiting, nausea Or ondansetron (Zofran) 4 MG/5ML solution 4 mg (CANCELED) 4 mg, Oral, Every 6 hours PRN, Starting on Sat03/14/25 at 0003, Until Sat03/15/25 at 0806, Routine, nausea, vomiting Group 3: oxyCODONE (Roxicodone) immediate release tablet 5 mgJump to med 5 mg, Oral, Every 4 hours PRN, Starting on Sat03/12/25 at 0633, Until Sat03/15/25 at 1852, Routine, Recovery(Phase II-Outpatient)/On Unit(Inpatient), moderate pain (4-6 on the numeric pain scale) Or oxyCODONE (Roxicodone) immediate release tablet 10 mgJump to med 10 mg, Oral, Every 4 hours PRN, Starting on Sat03/12/25 at 0633, Until Sat03/15/25 at 1852, Routine, Recovery(Phase II-Outpatient)/On Unit(Inpatient), severe pain (7- 10 on the numeric pain scale) documented in this encounter Additional Health Concerns Assessment Noted Time A fall risk assessment has been complete d for the patient 06/11/2022 10:47 AM EDT A Body Mass Index follow-up plan has been documented for the patient 03/15/2025 3:54 PM EDT documented as of this encounter Care Teams Operator Maintainer Relationship Specialty Start Date End Date Pcp, [place] [address] PCP - General Family Medicine 02/16/25 documented as of this encounter
--- OUTSIDE RECORDS SUMMARY | 2025-03-30 10:00 | XMS_ITS | Encounter Summary ---
Author Organization Healthcare Address [address] [id number] Care Team Providers Care Pole Climber Name Role Phone Pcp, No Primary Care Provider Unavailabl e Encounter Details Date Type Department Care Team (Latest Contact Info) Description 03/30/2025 10:00 AM EDT - 03/30/2025 11:59 PM EDT Hospital Encounter [facility] Radiology [address] [place] [address] Pleural effusion Discharge Disposition: Home or Self Care Social [...] any time in the past 12 m [facility], were you homeless or living in a senior living (including now)? No 03/11/2025 Utilities Answer Date [...] on file documented as of this encounter Medications at Time of Discharge [...] oxycodone to prevent constipation. 30 tablet 03/15/2025 documented as of this encounter Plan of Treatment Not on file documented as of this encounter Procedures Procedure Name Priority Date/Time Associated Diagnosis Comments XR CHEST 2 VIEWS Routine 03/30/2025 11:2 6 AM EDT Pleural effusion documented in this encounter Results * XR [...] signing this report, I, the attending physician, attmanoloat I have personally reviewed the images/data for the aboveexamination(s) and agree with the final edited report. Drafted by Ta Hughes MD on 03/30/2025 1:18 PM Final report signed by Santos Gerard MD on 03/30/2025 1:32 PM us Kaylan Cao MD IMG XR PROCEDURES Final Resu lt documented in this encounter Visit Diagnoses Diagnosis Pleural effusion Unspecified pleural effusion documented in this encounter Additional Health Concerns Assessment Noted Time A fall risk assessment has been complete d for the patient 06/11/2022 10:47 AM EDT A Body Mass Index follow-up plan has been documented for the patient 03/31/2025 10:22 AM EDT documented as of this encounter Care Teams Pole Climber Relationship Specialty Start Date End Date Pcp, Venessa [address] [place] [address] PCP - General Family Medicine 02/16/25 documented as of this encounter
--- OUTSIDE RECORDS SUMMARY | 2025-03-30 10:45 | XMS_ITS | Encounter Summary ---
Author Organization Healthcare Address [address] [id number] Care Team Providers Care Rn Acls Name Role Phone Pcp, No Primary Care Provider Unavailabl e Reason for Visit * Reason Comments Follow-up Encounter Details Date Type Department Care Team ([facility] Contact Info) Description 03/30/2025 10:45 AM EDT Office Visit Pav [facility] Head[facility] Neck & Respiratory [address] [place] [address] Kaylan Cao MD [address] [facility] [address] [place] [address] Pleural effusion (Primary Dx) Social History Tobacco Use Types Packs/Day Years Used Date Smoking Tobacco: Never Smokeless Tobacco: Never Tobacco Cessation:Counseling Given: No Humiliation, Afraid, Rape, and Kick questionnair e [...] any time in the past 12 m [facility], were you homeless or living in a half-way (including now)? No 03/11/2025 Utilities Answer Date [...] Sign Reading Time Taken Comments Blood Pressure 115/73 03/30/2025 11:36 AM EDT Pulse 78 03/30/2025 11:36 AM EDT Temperature - - Respiratory Rate 16 03/30/2025 11:36 AM EDT Oxygen Saturation 100% 03/30/2025 11:36 AM EDT Inhaled Oxygen Concentration - - Weight 50.4 kg (111 lb 1.8 oz) 03/30/2025 11:36 AM EDT Height - - Body Mass Index 19.07 03/10/2025 7:38 PM EDT documented in this encounter Miscellaneous Notes * Progress Notes - Yunior Aceves MD - 03/30/2025 10:45 AM EDT Images from the original note were not included. [facility] Department of Surgery Section of Thoracic Surgery Outpatient Clinic Note Diagnosis: Right empyema with spontaneous pneumothorax Procedure: Bronchoscopy, R VATS decortication 4/17/25 Interval History: Sarah Crane is a 25 y.o. female with right pleural effusion and spontaneous pneumothorax who is status post right VATS decortication on 03/11/2025 and then to clinic today for follow-up. The patienthas done well since her discharge from the hospital on 03/15/2025. Patient has been progressing well. She denies any recent fevers, chills, night sweats, coughing, sneezing, shortness of breath, chest pain, abdominal pain, lower extremity pain/inflammation/edema, urinary or bowel dysfunction or constitutional symptoms of infection. Patient has started driving but has not returned back to work. Patient is otherwise without any significant complaints. ROS: General: no fevers or chills, no heat or cold intolerance, no subjective weight loss HEENT: no changes in vision, no sore throat, no changes in hearing, no tinnitus, no nasal drainage CV: no chest pain, no palpitations, no lightheadedness, no PND, no orthopnea, no LE swelling, no claudication Pulm: no shortness of breath, no cough, no hemoptysis GI: no nausea, no vomiting, no abdominal pain, no constipation, no diarrhea, no melenal, no hematochezia, no dysphagia, no heartburn Skin: no rash Neuro: no numbness, no tingling, no headache, no difficulties with speech, no gait disturbance Heme: no easy bruising, no bleeding from the gums Endo: No polyuria or polydypsia Psych: no depression or anxiety Physical exam: Visit Vitals BP 115/73 (BP Location: Right arm) Pulse 78 Wt 50.4 kg (111 lb 1.8 oz) SpO2 100% BMI 19.07 kg/m?? Wt Readings from Last 3 Encounters: 03/30/25 50.4 kg (111 lb 1.8 oz) 03/15/25 45.9 kg (101 lb 3.1 oz) 06/11/22 45.4 kg (100 lb) CONSTITUTIONAL: NAD, A&O x3 HEAD: Normocephalic, atraumatic; EYES: EOMI NECK: Supple, No JVD; trachea midline CARDIAC: Regular rate and rhythm CHEST/PULM: Symmetrical chest wall rise; NWOB; no wheezes or rhonchi Right VATS chest incisions healing appropriately GASTROINTESTINAL: Soft and compressible; NT, ND; No rebound or guarding LYMPHATICS: No palpable occipital, cervical, supraclavicular or axillary lymphadenopathy EXTREMITIES: No peripheral edema Otherwise normal ROM in BUE/BLE SKIN: Otherwise warm and dry NEUROLOGIC: No focal deficits; motor and sensation intact PSYCH: Appropriate mood and responses Imagin-view CXR (03/30/25) Improved bilateral lung aeration, small right effusion (decreased) Additional Testing: Surgical Pathology (03/11/25) Final Diagnosis A. RIGHT PLEURAL, BIOPSY: - GRANULATION TISSUE, INFLAMMATION WITH PIGMENT LADEN MACROPHAGES AND REACTIVE CHANGES ( CLINICAL HISTORY OF EMPYEMA WITH PNEUMOTHORAX) Assessment and Plan: Sarah Crane is a 25 y.o. female who s/p right VATS decortication on 03/15/25 for a right-sided empyema and pneumothorax. Patient has done well since discharge and reports no acute complaints today. Review of her chest x-ray today shows improved bilateral lung aeration at even smaller right-sided effusion compared to her prior imaging (final radiological interpretation pending). Patient may return back to work with minimal restrictions. Follow up with us can be on a p.r.n. basis. Yunior Aceves MD 03/30/25 11:41 AM Cosigned by Kaylan Cao MD at 03/31/2025 10:22 AM EDT Associated attestation - Kaylan Cao MD - 03/31/2025 10:22 AM EDT I saw and evaluated the patient with the resident/fellow. I discussed the case with the resident/fellow and agree with the findings and plan as documented. Recovering well from her decortication. Lung is well expanded on CXR today. The patient does not need any further specific follow up with the thoracic surgery program but they were encouraged to contact us at any time with any problems or questions. documented in this encounter Plan of Treatment Not on file documented as of this encounter Visit Diagnoses Diagnosis Pleural effusion- Primary Unspecified pleural effusion documented in this encounter Additional Health Concerns Assessment Noted Time A fall risk assessment has been complete d for the patient 06/11/2022 10:47 AM EDT A Body Mass Index follow-up plan has been documented for the patient 03/31/2025 10:22 AM EDT documented as of this encounter Care Teams Rn Acls Relationship Specialty Start Date End Date Pcp, [place] [address] PCP - General Family Medicine 02/16/25 documented as of this encounter
--- OUTSIDE RECORDS SUMMARY | 2025-05-11 16:01 | XMS_ITS | Encounter Summary ---
Author Organization Healthcare Address [address] [id number] Care Team Providers Care Senior Security Engineer Name Role Phone Pcp, No Primary Care Provider Unavailabl e Encounter Details Date Type Department Care Team (Late st Contact Info) Description 03/16/2025 Telephone PAV A Inpatient [address] [place] [phone] Hannah Villeda CV TELE-PROGRESSIVE Social History Tobacco [...] any time in the past 12 m [facility], were you homeless or living in a [...] documented as of this encounter Care Teams Senior Security Engineer Relationship Specialty Start Date End Date Pcp, No [address] [place] [address] PCP - General Family Medicine 02/16/25 documented as of this encounter
--- OUTSIDE RECORDS SUMMARY | 2025-05-11 16:01 | XMS_ITS | Encounter Summary ---
Author Organization Healthcare Address [address] [phone] Care Team Providers Care Social Media Intern Name Role Phone Pcp, No Primary Care Provider Unavailabl e Encounter Details Date Type Department Care Team (Late st Contact Info) Description 03/16/2025 Telephone Pav CC Head, Neck & Respiratory [address] [place] [phone] Kaylan Cao MD [address] [facility] [address] [place] [address] Social History Tobacco Use Types [...] any time in the past 12 m [facility], were you homeless or [...] informed pt to consult with PCP or employee adviser. Pt verbalized understanding and agreeable toplan. * [...] and optimal time of day to reach caller:[phone] Note: Please do not reply to this message. Follow-up communication and further actions as a result of this message need to be communicated with the patient directly, if the patient is not active onMyChart. If the patient is active on MyChart, they will receive notification of the communication/outcome via [employer]. documented in this encounter Plan of Treatment [...] documented as of this encounter Care Teams Social Media Intern Relationship Specialty Start Date End Date Pcp, [place] [address] PCP - General Family Medicine 02/16/25 documented as of this encounter
--- OUTSIDE RECORDS SUMMARY | 2025-05-11 16:01 | XMS_ITS | Clinical Summary ---
Author Organization Healthcare Address 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 Empyema lung 03/11/2025 03/12/2025 Pleural effusion 03/10/2025 03/15/2025 Overview (03/12/2025): 03/11/2025: Bronchoscopy, right VATS decortication Pain control - no NSAIDs Monitor tube output Encounters Date Type Department Care Team Description 03/30/2025 10:45 AM EDT Office Visit [facility] [address] [place] [address] Kaylan Cao MD Pleural effusion (Primary Dx) 03/30/2025 10:00 AM EDT - 03/30/2025 11:59 PM EDT Hospital Encounter [facility] Radiology [address] [place], [place] [phone] Pleural effusion Discharge Disposition: Home or Self Care 03/30/2025 Travel 03/16/2025 Telephone [facility] [address] [facility], [address]nd [place] [address] Kaylan Cao MD 03/16/2025 Telephone [facility] A Inpatient [address] [place] [address] Hannah Villeda 03/15/2025 Travel 03/14/2025 Travel 03/13/2025 Travel 03/12/2025 Travel 03/11/2025 3:23 PM EDT Anesthesia Event [facility] A OPERATING ROOM [address] [place] [address] Ga Mcguire MD Benson, Cathryn M, DIRECTOR OF RETAIL ANALYTICS 03/11/2025 1:50 PM EDT - 03/11/2025 5:20 PM EDT Surgery [facility] OPERATING ROOM [address] [place] [phone] Kaylan Cao MD R VATS Decortication, Possible Pleurodesis 03/11/2025 Travel 03/10/2025 11:46 AM EDT - 03/15/2025 4:52 PM EDT Hospital Encounter [facility] [address] [place] [phone] Edgar Lerner MD Owens, Susan E, MD [...] any time in the past 12 m [facility], were you homeless or living in a usp (including now)? No 03/11/2025 Utilities Answer Date Recorded In the past 12 months has [employer] gas, oil, or water [employer] threatened to shut off services in your [...] 2 - PCV) 2021 [facility]-Pap Smear 2023 [id number] Vaccine (2 - season) 2024 12/02/2021 [facility]-Influenza [...] PLASMA Routine 03/13/2025 3:3 3 AM EDT CBC W/O DIFFERENTIAL Routine 03/13/2025 [...] ANESTHESIA PLACEHOLDER Routine 03/11/2025 3:33 PM EDT MN AN ELECTIVE ENDOTRACHEAL AIRWAY Routine 03/11/2025 3:33 [...] COMPARISON: Same date at 0418 hours FINDINGS: [id number] left-sided pneumothorax without change. Small right-sided pleural effusion, stable. Mild right infrahilar opacities are similar to the prior. No left-sided pleural effusion or pneumothorax. No left-sided airspace disease. Procedure Note Ashleigh Samayoa MD - 03/15/2025 CLINICAL INDICATION: S/p chest tube removal TECHNIQUE: XR CHEST 1 VIEW COMPARISON: Same date at 0418 hours FINDINGS: [id number] left-sided pneumothorax without change. Smallright-sided pleural effusion, stable. Mild right infrahilar opacities aresimilar to the prior. No left-sided pleural effusion or pneumothorax. Noleft-sided airspace disease. IMPRESSION: Stable right-sided hydropneumothorax. CRITICAL RESULT: No. COMMUNICATION: Per this written report. Drafted by Ashleigh Samayoa MD on 03/15/2025 12:31 PM Final report signed by Ashleigh Samayoa MD on 03/15/2025 12:32 PM Jordon Orona DIRECTOR OF RETAIL ANALYTICS IMG XR PROCEDURES Final Res ult * (ABNORMAL) CBC W/O Differential (03/14/2025 3:26 AM EDT) Only the most recent of4 resultswithin the time period is included. WBC Count 10.78(H) 3.70 - 10.30 10*3/uL LAB HEMATOLOGY METHOD 03/14/2025 3:55 AM EDT [facility] RBC Count 3.49(L) 3.90 - 5.20 10*6/uL LAB HEMATOLOGY METHOD 03/14/2025 3:55 AM EDT [facility] HGB 10.2(L) 11.2 - 15.7 g/dL LAB HEMATOLOGY METHOD 03/14/2025 3:55 AM EDT [facility] HCT 32.9(L) 34.0 - 45.0 % LAB HEMATOLOGY METHOD 03/14/2025 3:55 AM EDT [facility] Platelet Count 668(H) 155 - 369 10*3/uL LAB HEMATOLOGY METHOD 03/14/2025 3:55 AM EDT [facility] MCV 94 79 - 98 fL LAB HEMATOLOGY METHOD 03/14/2025 3:55 AM EDT [facility] MCH 29.2 26.0 - 32.0 pg LAB HEMATOLOGY METHOD 03/14/2025 3:55 AM EDT [facility] MCHC 31.0 30.7 - 35.5 g/dL LAB HEMATOLOGY METHOD 03/14/2025 3:55 AM EDT [facility] RDW 12.5 11.5 - 14.5 % LAB HEMATOLOGY METHOD 03/14/2025 3:55 AM EDT [facility] MPV 8.8 8.8 - 12.5 fL LAB HEMATOLOGY METHOD 03/14/2025 3:55 AM EDT [facility] nRBC 0.0 <=0.0 per 100 WBCs LAB HEMATOLOGY METHOD 03/14/2025 3:55 AM EDT [facility] Blood Venous blood specimen / Unknown Venipuncture / Unknown 03/14/2025 3:26 AM EDT 03/14/2025 3:48 AM EDT us Kaylan Cao MD LAB BLOOD ORDERABLES Final R esult [facility] [address] [place] [address] * Magnesium (03/14/2025 3:26 AM EDT) Only the most recent of4 resultswithin the time period is included. Magnesium, Plasma 1.9 1.9 - 2.4 mg/dL 03/14/2025 4:24 AM EDT [facility] Blood Venous blood specimen / Unknown Venipuncture / Unknown 03/14/2025 3:26 AM EDT 03/14/2025 3:48 AM EDT us Kaylan Cao MD LAB BLOOD ORDERABLES Final R esult [facility] [address] [place] [address] * (ABNORMAL) Renal function panel (03/14/2025 3:26 AM EDT) Only the most recent of4 resultswithin the time period is included. Glucose, Plasma 116(H) 74 - 99 mg/dL 03/14/2025 4:24 AM EDT [facility] BUN, Plasma 8 7 - 21 mg/dL 03/14/2025 4:24 AM EDT [facility] Creatinine, Plasma 0.49(L) 0.60 - 1.10 mg/dL 03/14/2025 4:24 AM EDT [facility] BUN/Creatinine Ratio 16 03/14/2025 4:24 AM EDT [facility] Sodium, Plasma 137 136 - 145 mmol/L 03/14/2025 4:24 AM EDT [facility] Potassium, Plasma 3.6 3.6 - 4.9 mmol/L 03/14/2025 4:24 AM EDT [facility] Chloride, Plasma 102 97 - 107 mmol/L 03/14/2025 4:24 AM EDT [facility] CO2, Plasma 28 22 - 29 mmol/L 03/14/2025 4:24 AM EDT [facility] Anion Gap 7 6 - 16 mmol/L 03/14/2025 4:24 AM EDT [facility] Total Calcium, Plasma 8.9 8.9 - 10.2 mg/dL 03/14/2025 4:24 AM EDT [facility] Phosphorus, Plasma 4.7(H) 2.5 - 4.5 mg/dL 03/14/2025 4:24 AM EDT [facility] Albumin, Plasma 3.1(L) 3.5 - 5.2 g/dL 03/14/2025 4:24 AM EDT [facility] eGFRcr 136.0 mL/min/1.7 3m*2 03/14/2025 4:24 AM EDT [facility] Comment:Reported eGFRcr in m L/min/1.73m2 is based the CKD-EPI 2020 equation that does not use a race coefficient. Blood Venous blood specimen / Unknown Venipuncture / Unknown 03/14/2025 3:26 AM EDT 03/14/2025 3:48 AM EDT Kaylan Cao MD LAB BLOOD ORDERABLES Final R esult [facility] [address] [place] [address] * (ABNORMAL) Body Fluid Culture and Gram Stain (03/11/2025 5:21 PM EDT) Culture Light Growth 03/14/2025 7:03 AM EDT [facility] Culture Staphylococcus epidermidis(A) SELENE 03/14/2025 7:03 AM EDT [facility] Comment: This isolate has been identified using the FDA Approved Second [place] System The organism value for this result has been updated. These results have been appended to the previously preliminary verified report. Gram Stain Result Few Polymorphonuclear leukocytes 03/14/2025 7:03 AM EDT [facility] Gram Stain Result No organisms seen 03/14/2025 7:03 AM EDT [facility] Body Fluid Structure of right [...] O RDERABLES Final Result Performing Organization Address [facility]/ZIP Co de Phone Number [facility] [address] [place] [address] * Surgical Pathology Exam (03/11/2025 4:57 PM EDT) Case Report Surgical Pathology Case: [id number] Authorizing Provider: Kaylan Cao MD Collected: 03/11/2025 1657 Ordering Location: [facility] A OPERATING ROOM Received: 03/12/2025 0813 Pathologist: Goyo Haque MD Specimen: Other (specify site), Right Pleural Biopsy 03/16/2025 11:09 AM EDT [facility] Final Diagnosis A. RIGHT PLEURAL, BIOPSY: - GRANULATION TISSUE, INFLAMMATION WITH PIGMENT LADEN MACROPHAGES AND REACTIVE CHANGES ( CLINICAL HISTORY OF EMPYEMA WITH PNEUMOTHORAX) 03/16/2025 11:09 AM EDT [facility] at 1108 EDT Clinical Information Pleural effusion [J90] 03/16/2025 11:09 AM EDT [facility] Gross Description A. RIGHT PLEURAL BIOPSY Received in formalin labeled right pleura biopsy , are 3 pink-red soft tissue fragments that range from 0.7-1.2 cm in greatest dimension. Entirely submitted in cassette A1. Cold Time: 15h 16m Cristel Prado 03/16/2025 11:09 AM EDT [facility] Note: A resident was involved in the service. I attest I examined the relevant preparations for the specimens and confirmed the diagnosis or interpretation. 03/16/2025 11:09 AM EDT [facility] Tissue Topography unknown / Unknown 03/11/2025 4:57 PM EDT 03/12/2025 8:13 AM EDT Comment:Pre-op diagnosis: Pleural effusion [J90] us Kaylan Cao MD LAB PATHOLOGY ORDERABLES Fin al Result Performing Organization Address City/[facility]/ZIP Co de Phone Number [facility] [address] [place] [address] * Left Hand 18 G Peripheral IV [...] ORDERABLES Edite d Result - Final * MN AN ELECTIVE ENDOTRACHEAL AIRWAY, PB ANESTHESIA PLACEHOLDER (03/11/2025 3:33 PM EDT) Mirella Weathers CRNA - 03/11/2025 3:33 PM EDT Mirella Amos CRNA 03/11/2025 4:31 PM Airway Date/Time: 03/11/2025 3:33 PM Reason: elective Airway not difficult General Information and Staff Patient location during procedure: OR ELECTRONICS PROCESSOR: Mirella Amos CRNA Performed: JONNY Patient Condition [...] Non- Females: Negative 03/11/2025 3:06 PM EDT [facility] Rehabilitation Therapist ID SaulLinnea Devan 03/11/2025 3:06 PM EDT [facility] Device ID [id number] 03/11/2025 3:06 PM EDT [facility] Urine Urine specimen obtained by clean catch procedure / Unknown 03/11/2025 3:00 PM EDT 03/11/2025 3:06 PM EDT us Kaylan Cao MD LAB POINT OF CARE TE ST DOCKED DEVICE UNSOLICITED RESULTS Final Result Performing Organization Address [facility] de Phone Number [facility] [address] [place] [address] * Type and screen (03/10/2025 4:28 PM [...] ORDERABL ES Final Result Performing Organization Address [facility] Phone Number BLOOD BANK [address] [place] [address], [place] * CT Chest w IV Contrast [...] at day 5 03/15/2025 2:02 PM EDT [facility] Blood Structure of antecubital vein / Unknown Venipuncture / Unknown 03/10/2025 12:21 PM EDT 03/10/2025 12:35 PM EDT Narrative [facility] - 03/15/2025 2:02 PM EDT Low blood volume submitted, results may be compromised us Edgar Lerner MD LAB MICROBIOLOGY - GENE RAL ORDERABLES Final Result [facility] [address] [place] [address] * ED HIV 1/2 Antibody/Antigen Screen w/Reflex to HIV 1/2 Differentiation (03/10/2025 11:45 AM EDT) HIV 1 & 2 Antibody/Antigen Screen Non Reactive Non Reactive 03/10/2025 12:55 PM EDT [facility] Comment:Screening for HIV 1 & 2 antibodies, and P24 antigen is NONREACTIVE. No confirmatory testing is required. Blood Venous blood specimen / Unknown Venipuncture / Unknown 03/10/2025 11:45 AM EDT 03/10/2025 12:05 PM EDT Tera Maher MD LAB BLOOD ORDERABLES Final Result Performing Organization Address [facility]/ZIP Co de Phone Number [facility] [address] [place] [address] * Hepatitis C Antibody - ED (03/10/2025 11:45 AM EDT) Hepatitis C Antibody Negative Negative 03/10/2025 12:57 PM EDT [facility] Blood Venous blood specimen / Unknown Venipuncture / Unknown 03/10/2025 11:45 AM EDT 03/10/2025 12:05 PM EDT Tera Maher MD LAB BLOOD ORDERABLES Final Result Performing Organization Address City/[facility] Co de Phone Number [facility] [address] [place] [address] * (ABNORMAL) PT-INR (03/10/2025 11:45 AM EDT) Pathologist [facility] Prothrombin Time 15.0(H) 12.0 - 14.3 sec 03/10/2025 12:13 PM EDT [facility] INR 1.2(H) 0.9 - 1.1 03/10/2025 12:13 PM EDT [facility] Blood Venous blood specimen / Unknown Venipuncture / Unknown 03/10/2025 11:45 AM EDT 03/10/2025 11:55 AM EDT Narrative [facility] - 03/10/2025 12:13 PM EDT OPTIMAL INR RANGES FOR PATIENT ON ORAL ANTICOAGULANT THERAPY Prevention of venous thromboembolism INR 2.0 to 3.0 In patients with heart disease: Atrial fibrillation INR 2.0 to 3.0 Valvular heart disease INR 2.0 to 3.0 Tissue heart valves INR 2.0 to 3.0 Mechanical prosthetic valves INR 2.5 to 3.5 Prevention of recurrent OR INR 2.5 to 3.5 us Tera Maher MD LAB BLOOD ORDERABLES Final Result [facility] [address] [place] [address] * (ABNORMAL) CBC w/diff (03/10/2025 11:45 AM EDT) WBC Count 13.18(H) 3.70 - 10.30 10*3/uL LAB HEMATOLOGY METHOD 03/10/2025 12:26 PM EDT [facility] RBC Count 3.43(L) 3.90 - 5.20 10*6/uL LAB HEMATOLOGY METHOD 03/10/2025 12:26 PM EDT [facility] HGB 10.3(L) 11.2 - 15.7 g/dL LAB HEMATOLOGY METHOD 03/10/2025 12:26 PM EDT [facility] HCT 31.6(L) 34.0 - 45.0 % LAB HEMATOLOGY METHOD 03/10/2025 12:26 PM EDT [facility] Platelet Count 845(H) 155 - 369 10*3/uL LAB HEMATOLOGY METHOD 03/10/2025 12:26 PM EDT [facility] MCV 92 79 - 98 fL LAB HEMATOLOGY METHOD 03/10/2025 12:26 PM EDT [facility] MCH 30.0 26.0 - 32.0 pg LAB HEMATOLOGY METHOD 03/10/2025 12:26 PM EDT [facility] MCHC 32.6 30.7 - 35.5 g/dL LAB HEMATOLOGY METHOD 03/10/2025 12:26 PM EDT [facility] RDW 11.9 11.5 - 14.5 % LAB HEMATOLOGY METHOD 03/10/2025 12:26 PM EDT [facility] MPV 9.1 8.8 - 12.5 fL LAB HEMATOLOGY METHOD 03/10/2025 12:26 PM EDT [facility] nRBC 0.0 <=0.0 per 100 WBCs LAB HEMATOLOGY METHOD 03/10/2025 12:26 PM EDT [facility] Differential Type Automated LAB HEMATOLOGY METHOD 03/10/2025 12:26 PM EDT [facility] Neutrophils % 76 % LAB HEMATOLOGY METHOD 03/10/2025 12:26 PM EDT [facility] Lymphocytes % 14 % LAB HEMATOLOGY METHOD 03/10/2025 12:26 PM EDT [facility] Monocytes % 7 % LAB HEMATOLOGY METHOD 03/10/2025 12:26 PM EDT [facility] Eosinophils % 1 % LAB HEMATOLOGY METHOD 03/10/2025 12:26 PM EDT [facility] Basophils % 1 % LAB HEMATOLOGY METHOD 03/10/2025 12:26 PM EDT [facility] Immature Granulocytes % 1 % LAB HEMATOLOGY METHOD 03/10/2025 12:26 PM EDT [facility] Neutrophils Absolute 10.12(H) 1.60 - 6.10 10*3/uL LAB HEMATOLOGY METHOD 03/10/2025 12:26 PM EDT [facility] Lymphocytes Absolute 1.87 1.20 - 3.90 10*3/uL LAB HEMATOLOGY METHOD 03/10/2025 12:26 PM EDT [facility] Monocytes Absolute 0.95(H) 0.30 - 0.90 10*3/uL LAB HEMATOLOGY METHOD 03/10/2025 12:26 PM EDT [facility] Eosinophils Absolute 0.07 0.00 - 0.50 10*3/uL LAB HEMATOLOGY METHOD 03/10/2025 12:26 PM EDT [facility] Basophils Absolute 0.09 0.00 - 0.10 10*3/uL LAB HEMATOLOGY METHOD 03/10/2025 12:26 PM EDT [facility] Immature Granulocytes Absolute 0.08(H) 0.00 - 0.06 10*3/uL LAB HEMATOLOGY METHOD 03/10/2025 12:26 PM EDT [facility] Blood Venous blood specimen / Unknown Venipuncture / Unknown 03/10/2025 11:45 AM EDT 03/10/2025 11:55 AM EDT [facility] - 03/10/2025 12:26 PM EDT Therapeutic decision making should be based on absolute values, rather than percentages. us Tera Maher MD LAB BLOOD ORDERABLES Final Result [facility] [address] [place] [address] * (ABNORMAL) CMP (03/10/2025 11:45 AM EDT) Glucose, Plasma 111(H) 74 - 99 mg/dL 03/10/2025 12:20 PM EDT [facility] BUN, Plasma 10 7 - 21 mg/dL 03/10/2025 12:20 PM EDT [facility] Creatinine, Plasma 0.47(L) 0.60 - 1.10 mg/dL 03/10/2025 12:20 PM EDT [facility] BUN/Creatinine Ratio 21 03/10/2025 12:20 PM EDT [facility] Sodium, Plasma 136 136 - 145 mmol/L 03/10/2025 12:20 PM EDT [facility] Potassium, Plasma 4.1 3.6 - 4.9 mmol/L 03/10/2025 12:20 PM EDT [facility] Chloride, Plasma 99 97 - 107 mmol/L 03/10/2025 12:20 PM EDT [facility] CO2, Plasma 26 22 - 29 mmol/L 03/10/2025 12:20 PM EDT [facility] Anion Gap 11 6 - 16 mmol/L 03/10/2025 12:20 PM EDT [facility] Total Calcium, Plasma 9.4 8.9 - 10.2 mg/dL 03/10/2025 12:20 PM EDT [facility] Total Protein 7.9 6.3 - 7.9 g/dL 03/10/2025 12:20 PM EDT [facility] Albumin, Plasma 3.5 3.5 - 5.2 g/dL 03/10/2025 12:20 PM EDT [facility] AST, Plasma 31 10 - 35 U/L 03/10/2025 12:20 PM EDT [facility] ALT, Plasma 46(H) 10 - 35 U/L 03/10/2025 12:20 PM EDT [facility] Alkaline Phosphatase, Plasma 110(H) 35 - 104 U/L 03/10/2025 12:20 PM EDT [facility] Total Bilirubin, Plasma 0.3 0.2 - 1.1 mg/dL 03/10/2025 12:20 PM EDT [facility] eGFRcr 137.4 mL/min/1.7 3m*2 03/10/2025 12:20 PM EDT [facility] Comment:Reported eGFRcr in m L/min/1.73m2 is based the CKD-EPI 2020 equation that does not use a race coefficient. Blood Venous blood specimen / Unknown Venipuncture / Unknown 03/10/2025 11:45 AM EDT 03/10/2025 11:55 AM EDT us Tera Mahre MD LAB BLOOD ORDERABLES Final Result [facility] [address] [place] [address] * EKG now - STAT (adult) (03/10/2025 11:31 AM EDT) EKG DIAGNOSIS CLASS Borderline Normal MUSE ECG Ventricular Rate 112 BPM MUSE ECG Atrial Rate 112 BPM MUSE ECG MN Interval 130 ms MUSE ECG QRSD Interval 70 ms MUSE ECG QT Interval 312 ms MUSE ECG QTC Interval 425 ms MUSE ECG P [place] 75 degrees MUSE ECG R [place] 88 degrees MUSE ECG T Wave [place] 31 degrees MUSE ECG Diagnosis Sinus tachycardia MUSE ECG Diagnosis Otherwise normal ECG MUSE ECG Diagnosis MUSE ECG Diagnosis Confirmed by Amador Lockhart ([id number]) on 03/10/2025 11:50:04 AM MUSE ECG 03/10/2025 [...] updated to appropriate status: No Care Teams Community Administrator Relationship Specialty Start Date End Date Pcp, Venessa [address] [place] [address] PCP - General Family Medicine 02/16/25
--- OUTSIDE RECORDS SUMMARY | 2025-05-11 16:01 | XMS_ITS | Encounter Summary ---
Author Organization Healthcare Address [address] [id number] Care Team Providers Care Unloader Name Role Phone Pcp, No Primary Care [...] time in the past 12 m [facility], were you homeless or living in a fpc (including now)? No 03/11/2025 Utilities Answer Date [...] documented as of this encounter Care Teams Unloader Relationship Specialty Start Date End Date Pcp, No [address] [place] [address] PCP - General Family Medicine 02/16/25 documented as of this encounter
--- OUTSIDE RECORDS SUMMARY | 2025-05-11 16:01 | XMS_ITS | Encounter Summary ---
Author Organization Healthcare Address [address] [id number] Care Team Providers Care Clinical Technologist Name Role Phone Pcp, No Primary Care [...] in the past 12 m [facility], were you homeless or living in a group home (including now)? No 03/11/2025 Utilities Answer [...] documented as of this encounter Care Teams Clinical Technologist Relationship Specialty Start Date End Date Pcp, No [address] [place] [address] PCP - General Family Medicine 02/16/25 documented as of this encounter
--- OUTSIDE RECORDS SUMMARY | 2025-05-11 16:02 | XMS_ITS | Encounter Summary ---
Author Organization Healthcare Address [address] [id number] Care Team Providers Care Inspector Multifocal Lens Name Role Phone Pcp, No Primary Care [...] time in the past 12 m [facility], were you homeless or living in a [...] documented as of this encounter Care Teams Inspector Multifocal Lens Relationship Specialty Start Date End Date Pcp, No [address] [place] [address] PCP - General Family Medicine 02/16/25 documented as of this encounter
--- OUTSIDE RECORDS SUMMARY | 2025-05-11 16:02 | XMS_ITS | Encounter Summary ---
Author Organization Healthcare Address [address] [id number] Care Team Providers Care Lead Handler Name Role Phone Pcp, No Primary Care [...] documented as of this encounter Care Teams Lead Handler Relationship Specialty Start Date End Date Pcp, No [address] [place] [address] PCP - General Family Medicine 02/16/25 documented as of this encounter
--- OUTSIDE RECORDS SUMMARY | 2025-05-11 16:02 | XMS_ITS | Encounter Summary ---
Author Organization Healthcare Address [address] [id number] Care Team Providers Care Lacquer Shader Name Role Phone Pcp, No Primary Care [...] any time in the past 12 m [facility], were you homeless or living [...] documented as of this encounter Care Teams Lacquer Shader Relationship Specialty Start Date End Date Pcp, No [address] [place] [address] PCP - General Family Medicine 02/16/25 documented as of this encounter
--- NOTE | 2025-05-11 16:15 | MR_ITS ---
PROCEDURE INFORMATION: Exam: MR Head Without Contrast Exam date and time: 05/11/2025 4:02 PM Age: 25 years old Clinical indication: Visual disturbance; Prior surgery; Surgery date: 1-6 months; Surgery type: Chest tubes; Additional info: Right pupil constricted post surgery from having 2 chest tubes placed TECHNIQUE: Imaging protocol: Magnetic resonance imaging of the head without contrast. COMPARISON: MR ANGIO HEAD WO/W CON 05/05/2025 3:45 PM FINDINGS: Brain: Normal. No acute infarct. No hemorrhage. No significant white matter disease. No edema. Cerebral ventricles: Normal. No ventriculomegaly. Bones: Unremarkable. Paranasal sinuses: Normal as visualized. No acute sinusitis. Mastoid air cells: Normal as visualized. No mastoid effusion. Orbital cavities: Unremarkable. Soft tissues: Unremarkable. IMPRESSION: No acute findings.
== END 2025-05-11 23:59 | disposition home or self-care (01) ==
LOC: RAD 15:59
PROVIDERS: PCP Nurse Practitioner Family; Visit Provider Nurse Practitioner Family
DX: H57.9 Unspecified disorder of eye and adnexa (principal); R51.9 Headache, unspecified; Z98.890 Other specified postprocedural states
CPT/HCPCS: 70551